=== PATIENT | male | born 1955 | race American Indian/Alaskan Native ===

== ENCOUNTER 2019-06-19 14:18 | Emergency (ER) | payer MEDICAID ==
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
[2019-06-19 15:14] LABS: Basophils % (Auto) 0.8 % (0.0-1.8); Eosinophils # (Auto) 0.1 K/mm3 (0.0-0.4); Eosinophils % (Auto) 1.2 % (0.0-4.3); Hematocrit 49.2 % (35.5-45.6); Hemoglobin 16.4 gm/dl (11.8-15.2); Lymphocytes # (Auto) 2.2 K/mm3 (1.2-5.4); Lymphocytes % (Auto) 40.6 % (13.4-35.0); Mean Corpuscular HGB Conc 33 % (32-34); Mean Corpuscular Volume 94 fl (84-94); Monocytes # (Auto) 0.8 K/mm3 (0.0-0.8); Monocytes % (Auto) 15.3 % (0.0-7.3); Platelet Count 222 K/mm3 (140-440); Red Blood Count 5.26 M/mm3 (3.65-5.03)
[2019-06-19 15:30] LABS: Calcium 9.9 mg/dL (8.4-10.2)
[2019-06-19 15:58] LABS: Bilirubin,Urine NEG (Negative); Blood,Urine NEG (Negative); Color,Urine Straw (Yellow); Protein,Urine <15 mg/dL mg/dL (Negative); Urobilinogen,Urine < 2.0 mg/dL (<2.0)
[2019-06-19 16:07] LABS: Amphetamine Screen,Urine PRESUMPTIVE NEGATIVE; Benzodiazepines Screen,Urine PRESUMPTIVE NEGATIVE; Cannabinoid Screen,Urine PRESUMPTIVE NEGATIVE; Cocaine Screen,Urine PRESUMPTIVE NEGATIVE; Methadone Screen,Urine PRESUMPTIVE NEGATIVE; Opiate Screen,Urine PRESUMPTIVE NEGATIVE
[2019-06-20 05:34] VITALS: BP 127/84
== END 2019-06-20 05:37 ==
LOC: ED 14:18
DX: F23 Brief psychotic disorder (principal); I12.9 Hypertensive chronic kidney disease with stage 1 through stage 4 chronic kidney disease, or unspecified chronic kidney disease; N18.9 Chronic kidney disease, unspecified; Z21 Asymptomatic human immunodeficiency virus [HIV] infection status; F32.9 Major depressive disorder, single episode, unspecified; E78.5 Hyperlipidemia, unspecified; Z86.2 Personal history of diseases of the blood and blood-forming organs and certain disorders involving the immune mechanism; Z87.891 Personal history of nicotine dependence
CPT/HCPCS: 36415; 80048; 80307; 80320; 81001; 85025; 99285; G0480

== ENCOUNTER 2019-09-19 13:42 | Emergency (ER) | payer MEDICAID ==
[2019-09-19 16:54] LABS: Bacteria,Urine 1+ /HPF (Negative); Bilirubin,Urine NEG (Negative); Blood,Urine NEG (Negative); Color,Urine Straw (Yellow); Urobilinogen,Urine < 2.0 mg/dL (<2.0)
--- NOTE | 2019-09-19 18:22 | Emergency Department Report ---
ED Abdominal Pain HPI - General Chief Complaint: Urogenital-Male Stated Complaint: SWOLLEN SCROTUM Time Seen by Provider: 09/19/19 18:17 Source: patient, EMS Mode of arrival: Stretcher Limitations: No Limitations - History of Present Illness Initial Comments: Patient is a 63-year-old male who presents to the emergency room with complaints of right groin pain, suprapubic pain, right testicular pain. Patient states that the pain started 2 days ago. Patient states the pain is the same. Patient denies nausea vomiting. Patient states that the pain is better with rest and worse with movement. Patient states that he had a bulge in the suprapubic and testicular region, but he was able to reduce it by lying flat and pressing on it. Patient states he lives at [facility]. Patient was transferred here via EMS for evaluation. Patient denies chest pain. Patient denies shortness of breath. Patient denies fever and chills. Patient has a past medical history of HIV, dementia, mood disorder, depression, chronic kidney disease, hyperlipidemia, hypertension and toxoplasmosis. MD Complaint: abdominal pain -: Sudden Location: suprapubic - Related Data Previous Rx's Medication Instructions Recorded Last Taken Type Ciprofloxacin HCl [Ciprofloxacin 500 mg PO Q12HR 10 Days #20 tab 09/19/19 Unknown Rx TAB] Allergies Allergy/AdvReac Type Severity Reaction Status Date / Time No Known Allergies Allergy Unverified 06/19/19 14:20 ED Review of Systems ROS: Stated complaint: SWOLLEN SCROTUM Other details as noted in HPI Constitutional: denies: chills, fever Eyes: denies: eye pain, eye discharge, vision change ENT: denies: ear pain, throat pain Respiratory: denies: cough, shortness of breath, wheezing Cardiovascular: denies: chest pain, palpitations Endocrine: no symptoms reported Gastrointestinal: abdominal pain. denies: nausea, diarrhea Genitourinary: testicular pain. denies: urgency, dysuria Musculoskeletal: denies: back pain, joint swelling, arthralgia Skin: denies: rash, lesions Neurological: denies: headache, weakness, paresthesias Psychiatric: denies: anxiety, depression Hematological/Lymphatic: denies: easy bleeding, easy bruising ED Past Medical Hx - Past Medical History Previous Medical History?: Yes Hx Hypertension: Yes Hx Renal Disease: Yes Hx Psychiatric Treatment: Yes (Dementia, Depression) Hx HIV: Yes Additional medical history: Anemia, Hyperlipidema - Social History Smoking Status: Former Smoker Substance Use Type: None - Medications Home Medications: Home Medications Medication Instructions Recorded Confirmed Last Taken Type Ciprofloxacin HCl [Ciprofloxacin 500 mg PO Q12HR 10 Days #20 tab 09/19/19 Unknown Rx TAB] ED Physical Exam - General Limitations: No Limitations General appearance: alert, in no apparent distress - Head Head exam: Present: atraumatic, normocephalic - Eye Eye exam: Present: normal appearance - ENT ENT exam: Present: mucous membranes moist - Neck Neck exam: Present: normal inspection - Respiratory Respiratory exam: Present: normal lung sounds bilaterally. Absent: respiratory distress - Cardiovascular Cardiovascular Exam: Present: regular rate, normal rhythm. Absent: systolic murmur, diastolic murmur, rubs, gallop - GI/Abdominal GI/Abdominal exam: Present: soft, tenderness (mild right lower quadrant and right suprapubic tenderness to palpation. no hernia noted. ), normal bowel sounds. Absent: distended - Rectal Rectal exam: Present: deferred - exam: Present: normal inspection, testicular tenderness. Absent: scrotal swelling, circumcision - Extremities Exam Extremities exam: Present: normal inspection - Back Exam Back exam: Present: normal inspection - Neurological Exam Neurological exam: Present: alert, oriented X3 - Psychiatric Psychiatric exam: Present: normal affect, normal mood - Skin Skin exam: Present: warm, dry, intact, normal color. Absent: rash ED Course Vital Signs 09/19/19 14:32 Temperature 98.7 F Pulse Rate 96 H Blood Pressure 159/105 - Reevaluation(s) Reevaluation #1: Admission and initially refused lab work. Patient agrees to have his labs dr middleton. 09/19/19 21:16 Reevaluation #2: I discussed all results with patient. Patient is medically clear. Patient stable for discharge. Patient be discharged back to his desk. Patient agrees to plan of care. Patient given discharge instructions. Patient voiced understanding of discharge instructions. 09/19/19 22:39 - Consultations Consultation #1: Discussed case with general surgery, Dr. Escalante. Dr. Escalante recommends outpati ent follow-up for the patient for surgical correction of his hernia. 09/19/19 22:44 ED Medical Decision Making - Lab Data Result diagrams: 09/19/19 21:11 09/19/19 21:11 - Radiology Data Radiology results: report reviewed CT ABDOMEN AND PELVIS WITHOUT CONTRAST INDICATION / CLINICAL INFORMATION: Diffuse abdominal TECHNIQUE: Axial CT images were obtained through the abdomen and pelvis without IV contrast. All CT scans at this location are performed using CT dose reduction for ALARA by means of automated exposure control. COMPARISON: None available. FINDINGS: LOWER CHEST: No significant abnormality. LIVER: No significant abnormality. GALLBLADDER: No significant abnormality. BILE DUCTS: No significant abnormality. PANCREAS: No significant abnormality. SPLEEN: No significant abnormality. ADRENALS: No significant abnormality. RIGHT KIDNEY and URETER: No significant abnormality. LEFT KIDNEY and URETER: No significant abnormality. STOMACH and SMALL BOWEL: No significant abnormality. COLON: Some nonspecific thickening is identified involving the cecum, ascending colon and hepatic flexure.. APPENDIX: No significant abnormality. Nondilated appendix. PERITONEUM: No free fluid. No free air. No fluid collection. LYMPH NODES: No significant adenopathy. AORTA and ARTERIES: No significant abnormality. IVC and VEINS: No significant abnormality. URINARY BLADDER: Abnormal thickening identified within the urinary bladder wall. REPRODUCTIVE ORGANS: No significant abnormality. ADDITIONAL FINDINGS: Large right inguinal hernia with a small amount of intermixed fluid.. SKELETAL SYSTEM: No significant abnormality. IMPRESSION: 1. Abnormal thickening identified within the urinary bladder wall. This could be seen with cystitis but close attention on follow-up is recommended. 2. Moderate-sized right internal hernia, as above 3. Question mild colitis especially involving the ascending colon. US testicular doppler comp INDICATION / CLINICAL INFORMATION: testicle pain. COMPARISON: None available. FINDINGS: Both testicles appear unremarkable. Color Doppler imaging shows normal vascular flow in each testicle. Small fluid collection adjacent to the right epididymis. The right epididymal head is slightly enlarged and inhomogeneous, with compared to the normal left epididymis. IMPRESSION: 1. Findings suggest right epididymitis. - Medical Decision Making Patient is a 63-year-old female that presents emergency room with complaints of right lower quadrant pain, suprapubic pain, testicular pain. Patient has CT done which shows a inguinal hernia. Patient had an ultrasound done which shows epididymitis. Patient treated with antibiotics. Patient to follow-up with a outpatient general surgeon for correction of his inguinal hernia. Patient's labs essentially unremarkable consistent with his chronic kidney. patient stable for discharge. Patient discharged back to his care home. - Differential Diagnosis hernia. abd pain. groin pain. testicle pain Critical care attestation.: If time is entered above; I have spent that time in minutes in the direct care of this critically ill patient, excluding procedure time. ED Disposition Clinical Impression: Acute epididymitis, Testicular pain, right Abdominal pain Qualifiers: Abdominal location: lower abdomen, unspecified Qualified Code(s): R10.30 - Lower abdominal pain, unspecified Groin pain Qualifiers: Laterality: right Qualified Code(s): R10.31 - Right lower quadrant pain Inguinal hernia Qualifiers: Obstruction and gangrene presence: without obstruction or gangrene Laterality: unilateral Recurrence: non-recurrent Qualified Code(s): K40.90 - Unilateral inguinal hernia, without obstruction or gangrene, not specified as recurrent CKD (chronic kidney disease) Qualifiers: Chronic kidney disease stage: unspecified stage Qualified Code(s): N18.9 - Chronic kidney disease, unspecified Disposition: TO HOME OR SELFCARE Is pt being admited?: No Does the pt Need Aspirin: No Condition: Stable Instructions: Epididymitis (ED), Acute Abdominal Pain (ED), Testicle Pain (ED), Inguinal Hernia (ED) Additional Instructions: Patient to follow-up with primary care in 2-3 days. Patient to follow-up with general surgery in 2-3 days. Patient to follow-up with urologist in 2-3 days. Patient to return to ER if condition worsens. Patient to take Tylenol when necessary for pain. Patient to take meds as directed. Patient increase water. Patient to rest. Prescriptions: Ciprofloxacin HCl [Ciprofloxacin TAB] 500 mg PO Q12HR 10 Days #20 tab Referrals: KWESI VALENCIA MD [Primary Care Provider] - 2-3 Days MABEL GASCA MD [Staff Physician] - 2-3 Days CATHY ESCALANTE MD [Staff Physician] - 2-3 Days Time of Disposition: 22:48
--- NOTE | 2019-09-19 19:13 | Cat Scan Report ---
CT ABDOMEN AND PELVIS WITHOUT CONTRAST INDICATION / CLINICAL INFORMATION: Diffuse abdominal TECHNIQUE: Axial CT images were obtained through the abdomen and pelvis without IV contrast. All CT scans at [facility] location are performed using CT dose reduction for ALARA by means of automated exposure control. COMPARISON: None available. FINDINGS: LOWER CHEST: No significant abnormality. LIVER: No significant abnormality. GALLBLADDER: No significant abnormality. BILE DUCTS: No significant abnormality. PANCREAS: No significant abnormality. SPLEEN: No significant abnormality. ADRENALS: No significant abnormality. RIGHT KIDNEY and URETER: No significant abnormality. LEFT KIDNEY and URETER: No significant abnormality. STOMACH and SMALL BOWEL: No significant abnormality. COLON: Some nonspecific thickening is identified involving the cecum, ascending colon and hepatic fle xure.. APPENDIX: No significant abnormality. Nondilated appendix. PERITONEUM: No free fluid. No free air. No fluid collection. LYMPH NODES: No significant adenopathy. AORTA and ARTERIES: No significant abnormality. IVC and VEINS: No significant abnormality. URINARY BLADDER: Abnormal thickening identified within the urinary bladder wall. REPRODUCTIVE ORGANS: No significant abnormality. ADDITIONAL FINDINGS: Large right inguinal hernia with a small amount of intermixed fluid.. SKELETAL SYSTEM: No significant abnormality. IMPRESSION: 1. Abnormal thickening identified within the urinary bladder wall. This could be seen with cystitis b ut close attention on follow-up is recommended. 2. Moderate-sized right internal hernia, as above 3. Question mild colitis especially involving the ascending colon. Signer Name: Freddie Eid MD Signed: 09/19/2019 7:09 PM Workstation Name: [id number]
--- NOTE | 2019-09-19 19:37 | Ultrasound Report ---
US testicular doppler comp INDICATION / CLINICAL INFORMATION: testicle pain. COMPARISON: None available. FINDINGS: Both testicles appear unremarkable. Color Doppler imaging shows normal vascular flow in each testicle . Small fluid collection adjacent to the right epididymis. The right epididymal head is slightly enlarg ed and inhomogeneous, with compared to the normal left epididymis. IMPRESSION: 1. Findings suggest right epididymitis. Signer Name: Devin Ware MD Signed: 09/19/2019 7:33 PM Workstation Name: [email or web address] Appointment Scheduler
[2019-09-19 21:22] LABS: Basophils % (Auto) 0.6 % (0.0-1.8); Eosinophils # (Auto) 0.1 K/mm3 (0.0-0.4); Eosinophils % (Auto) 0.8 % (0.0-4.3); Hematocrit 53.2 % (35.5-45.6); Hemoglobin 17.5 gm/dl (11.8-15.2); Lymphocytes # (Auto) 2.8 K/mm3 (1.2-5.4); Lymphocytes % (Auto) 33.7 % (13.4-35.0); Mean Corpuscular HGB Conc 33 % (32-34); Mean Corpuscular Volume 93 fl (84-94); Monocytes # (Auto) 0.9 K/mm3 (0.0-0.8); Monocytes % (Auto) 10.4 % (0.0-7.3); Platelet Count 233 K/mm3 (140-440); Red Blood Count 5.75 M/mm3 (3.65-5.03); Red Cell Distribution Width 14.2 % (13.2-15.2)
[2019-09-19 22:07] LABS: Albumin 4.3 g/dL (3.9-5); Calcium 10.7 mg/dL (8.4-10.2)
[2019-09-19] MEDS ORDERED: LIDOCAINE-MPF (1%) 10 MG/1 ML VIAL 5 ML INFILTRATI ONE (22:47)
[2019-09-20 03:21] VITALS: BP 137/89
== END 2019-09-20 03:21 | disposition home or self-care (01) ==
LOC: ED 13:42
DX: K40.90 Unilateral inguinal hernia, without obstruction or gangrene, not specified as recurrent (principal); N45.1 Epididymitis; N18.6 End stage renal disease
CPT/HCPCS: 36415; 74176; 80053; 81001; 85025; 93975; 96372; 99284; J0696

== ENCOUNTER 2019-11-06 13:18 | Inpatient (IN) | payer MEDICAID ==
--- NOTE | 2019-11-06 15:31 | Emergency Department Report ---
ED General Adult HPI - General Chief complaint: Altered Mental Status Stated complaint: SEIZURE Time Seen by Provider: 11/06/19 15:00 Source: EMS Mode of arrival: Stretcher Limitations: Altered Mental Status - History of Present Illness Initial comments: The patient presents to the emergency department from [facility] with a chief complaint of altered mental status. Staff states the patient possibly had a seizure due to him having a history of seizures being noncompliant with his medications. Upon the patient's initial presentation he was confused and not able to answer questions. -: unknown Severity scale (0 -10): 0 Consistency: constant Improves with: none Worsens with: none Associated Symptoms: denies other symptoms Treatments Prior to Arrival: none - Related Data Previous Rx's Medication Instructions Recorded Last Taken Type Ciprofloxacin HCl [Ciprofloxacin 500 mg PO Q12HR 10 Days #20 tab 09/19/19 U nknown Rx TAB] Allergies Allergy/AdvReac Type Severity Reaction Status Date / Time No Known Allergies Allergy Unverified 06/19/19 14:20 ED Review of Systems ROS: Stated complaint: SEIZURE Other details as noted in HPI Comment: Unobtainable due to pts medical conditions ED Past Medical Hx - Past Medical History Hx Hypertension: Yes Hx Renal Disease: Yes Hx Psychiatric Treatment: Yes (Dementia, Depression) Hx HIV: Yes Additional medical history: Anemia, Hyperlipidema - Social History Smoking Status: Unknown if ever smoked - Medications Home Medications: Home Medications Medication Instructions Recorded Confirmed Last Taken Type Ciprofloxacin HCl [Ciprofloxacin 500 mg PO Q12HR 10 Days #20 tab 09/19/19 Unknown Rx TAB] ED Physical Exam - General Limitations: Altered Mental Status General appearance: other (altered) - Head Head exam: Present: atraumatic, normocephalic - Eye Eye exam: Present: normal appearance, PERRL, EOMI - ENT ENT exam: Present: mucous membranes dry - Neck Neck exam: Present: normal inspection - Respiratory Respiratory exam: Present: normal lung sounds bilaterally. Absent: respiratory distress - Cardiovascular Cardiovascular Exam: Present: normal rhythm, tachycardia. Absent: systolic murmur, diastolic murmur, rubs, gallop - GI/Abdominal GI/Abdominal exam: Present: soft, normal bowel sounds. Absent: distended, tenderness - Rectal Rectal exam: Present: deferred - Extremities Exam Extremities exam: Present: normal inspection - Back Exam Back exam: Present: normal inspection - Neurological Exam Neurological exam: Present: altered, other (Not able to completely assess due to the patient's medical condition). Absent: motor sensory deficit - Psychiatric Psychiatric exam: Present: other (Not able to completely assess due to the patient's medical condition) - Skin Skin exam: Present: warm, dry, intact, normal color. Absent: rash ED Course Vital Signs 11/06/19 11/06/19 11/06/19 14:45 14:54 15:15 Temperature 99.9 F H Pulse Rate 119 H 143 H Respiratory 26 H 28 H 22 Rate Blood Pressure 169/116 Blood Pressure 169/116 [Left] O2 Sat by Pulse 95 96 96 Oximetry 11/06/19 11/06/19 11/06/19 15:31 16:30 17:32 Temperature Pulse Rate 109 H Respiratory 25 H 22 Rate Blood Pressure 169/116 Blood Pressure 164/115 [Left] O2 Sat by Pulse 97 95 96 Oximetry 11/06/19 18:15 Temperature Pulse Rate 123 H Respiratory 26 H Rate Blood Pressure 164/115 Blood Pressure [Left] O2 Sat by Pulse 96 Oximetry ED Medical Decision Making - Lab Data Result diagrams: 11/06/19 15:57 Lab Results 11/06/19 11/06/19 11/06/19 Range/Units 15:57 15:57 15:57 WBC 10.5 (4.5-11.0) K/mm3 RBC 5.84 H (3.65-5.03) M/mm3 Hgb 17.9 H (11.8-15.2) gm/dl Hct 53.2 H (35.5-45.6) % MCV 91 (84-94) fl MCH 31 (28-32) pg MCHC 34 (32-34) % RDW 14.7 (13.2-15.2) % Plt Count 218 (140-440) K/mm3 Lymph % (Auto) 8.0 L (13.4-35.0) % [place] % (Auto) 6.3 (0.0-7.3) % Eos % (Auto) 0.0 (0.0-4.3) % Baso % (Auto) 0.3 (0.0-1.8) % Lymph # 0.8 L (1.2-5.4) K/mm3 Sanborn # 0.7 (0.0-0.8) K/mm3 Eos # 0.0 (0.0-0.4) K/mm3 Baso # 0.0 (0.0-0.1) K/mm3 Seg Neutrophils % 85.4 H (40.0-70.0) % Seg Neutrophils # 9.0 H (1.8-7.7) K/mm3 PT 12.6 (12.2-14.9) Sec. INR 0.93 (0.87-1.13) APTT 26.9 (24.2-36.6) Sec. Ammonia (25-60) umol/L Troponin T (0.00-0.029) ng/mL NT-Pro-B Natriuret Pep (0-900) pg/mL Triglycerides (2-149) mg/dL Cholesterol (50-199) mg/dL LDL Cholesterol Direct (50-130) mg/dL HDL Cholesterol (40-59) mg/dL Cholesterol/HDL Ratio % Urine Color (Yellow) Urine Turbidity (Clear) Urine pH (5.0-7.0) Ur Specific Shirley (1.003-1.030) Urine Protein (Negative) mg/dL Urine Glucose (UA) (Negative) mg/dL Urine Ketones (Negative) mg/dL Urine Blood (Negative) Urine Nitrite (Negative) Urine Bilirubin (Negative) Urine Urobilinogen (<2.0) mg/dL Ur Leukocyte Esterase (Negative) Urine WBC (Auto) (0.0-6.0) /HPF Urine RBC (Auto) (0.0-6.0) /HPF U Epithel Cells (Auto) (0-13.0) /HPF Salicylates (2.8-20.0) mg/dL Acetaminophen (10.0-30.0) ug/mL Plasma/Serum Alcohol < 0.01 (0-0.07) % 11/06/19 11/06/19 11/06/19 Range/Units 15:57 15:57 15:57 WBC (4.5-11.0) K/mm3 RBC (3.65-5.03) M/mm3 Hgb (11.8-15.2) gm/dl Hct (35.5-45.6) % MCV (84-94) fl MCH (28-32) pg MCHC (32-34) % RDW (13.2-15.2) % Plt Count (140-440) K/mm3 Lymph % (Auto) (13.4-35.0) % San[place] % (Auto) (0.0-7.3) % Eos % (Auto) (0.0-4.3) % Baso % (Auto) (0.0-1.8) % Lymph # (1.2-5.4) K/mm3 San[place] # (0.0-0.8) K/mm3 Eos # (0.0-0.4) K/mm3 Baso # (0.0-0.1) K/mm3 Seg Neutrophils % (40.0-70.0) % Seg Neutrophils # (1.8-7.7) K/mm3 PT (12.2-14.9) Sec. INR (0.87-1.13) APTT (24.2-36.6) Sec. Ammonia 41.0 (25-60) umol/L Troponin T (0.00-0.029) ng/mL NT-Pro-B Natriuret Pep (0-900) pg/mL Triglycerides (2-149) mg/dL Cholesterol (50-199) mg/dL LDL Cholesterol Direct (50-130) mg/dL HDL Cholesterol (40-59) mg/dL Cholesterol/HDL Ratio % Urine Color (Yellow) Urine Turbidity (Clear) Urine pH (5.0-7.0) Ur Specific Shirley (1.003-1.030) Urine Protein (Negative) mg/dL Urine Glucose (UA) (Negative) mg/dL Urine Ketones (Negative) mg/dL Urine Blood (Negative) Urine Nitrite (Negative) Urine Bilirubin (Negative) Urine Urobilinogen (<2.0) mg/dL Ur Leukocyte Esterase (Negative) Urine WBC (Auto) (0.0-6.0) /HPF Urine RBC (Auto) (0.0-6.0) /HPF U Epithel Cells (Auto) (0-13.0) /HPF Salicylates < 0.3 L (2.8-20.0) mg/dL Acetaminophen < 5.0 L (10.0-30.0) ug/mL Plasma/Serum Alcohol (0-0.07) % 11/06/19 11/06/19 11/06/19 Range/Units 15:57 17:22 21:22 WBC (4.5-11.0) K/mm3 RBC (3.65-5.03) M/mm3 Hgb (11.8-15.2) gm/dl Hct (35.5-45.6) % MCV (84-94) fl MCH (28-32) pg MCHC (32-34) % RDW (13.2-15.2) % Plt Count (140-440) K/mm3 Lymph % (Auto) (13.4-35.0) % Sanborn % (Auto) (0.0-7.3) % Eos % (Auto) (0.0-4.3) % Baso % (Auto) (0.0-1.8) % Lymph # (1.2-5.4) K/mm3 Sanborn # (0.0-0.8) K/mm3 Eos # (0.0-0.4) K/mm3 Baso # (0.0-0.1) K/mm3 Seg Neutrophils % (40.0-70.0) % Seg Neutrophils # (1.8-7.7) K/mm3 PT (12.2-14.9) Sec. INR (0.87-1.13) APTT (24.2-36.6) Sec. Ammonia (25-60) umol/L Troponin T 0.056 H 0.049 H (0.00-0.029) ng/mL NT-Pro-B Natriuret Pep 116.3 (0-900) pg/mL Triglycerides 291 H (2-149) mg/dL Cholesterol 234 H (50-199) mg/dL LDL Cholesterol Direct 126 (50-130) mg/dL HDL Cholesterol 42 (40-59) mg/dL Cholesterol/HDL Ratio 5.57 % Urine Color (Yellow) Urine Turbidity (Clear) Urine pH (5.0-7.0) Ur Specific Shirley (1.003-1.030) Urine Protein (Negative) mg/dL Urine Glucose (UA) (Negative) mg/dL Urine Ketones (Negative) mg/dL Urine Blood (Negative) Urine Nitrite (Negative) Urine Bilirubin (Negative) Urine Urobilinogen (<2.0) mg/dL Ur Leukocyte Esterase (Negative) Urine WBC (Auto) (0.0-6.0) /HPF Urine RBC (Auto) (0.0-6.0) /HPF U Epithel Cells (Auto) (0-13.0) /HPF Salicylates (2.8-20.0) mg/dL Acetaminophen (10.0-30.0) ug/mL Plasma/Serum Alcohol (0-0.07) % 11/06/19 Range/Units Unknown WBC (4.5-11.0) K/mm3 RBC (3.65-5.03) M/mm3 Hgb (11.8-15.2) gm/dl Hct (35.5-45.6) % MCV (84-94) fl MCH (28-32) pg MCHC (32-34) % RDW (13.2-15.2) % Plt Count (140-440) K/mm3 Lymph % (Auto) (13.4-35.0) % Sanborn % (Auto) (0.0-7.3) % Eos % (Auto) (0.0-4.3) % Baso % (Auto) (0.0-1.8) % Lymph # (1.2-5.4) K/mm3 Sanborn # (0.0-0.8) K/mm3 Eos # (0.0-0.4) K/mm3 Baso # (0.0-0.1) K/mm3 Seg Neutrophils % (40.0-70.0) % Seg Neutrophils # (1.8-7.7) K/mm3 PT (12.2-14.9) Sec. INR (0.87-1.13) APTT (24.2-36.6) Sec. Ammonia (25-60) umol/L Troponin T (0.00-0.029) ng/mL NT-Pro-B Natriuret Pep (0-900) pg/mL Triglycerides (2-149) mg/dL Cholesterol (50-199) mg/dL LDL Cholesterol Direct (50-130) mg/dL HDL Cholesterol (40-59) mg/dL Cholesterol/HDL Ratio % Urine Color Straw (Yellow) Urine Turbidity Clear (Clear) Urine pH 7.0 (5.0-7.0) Ur Specific Shirley 1.010 (1.003-1.030) Urine Protein 100 mg/dl (Negative) mg/dL Urine Glucose (UA) 50 (Negative) mg/dL Urine Ketones Neg (Negative) mg/dL Urine Blood Lg (Negative) Urine Nitrite Neg (Negative) Urine Bilirubin Neg (Negative) Urine Urobilinogen < 2.0 (<2.0) mg/dL Ur Leukocyte Esterase Neg (Negative) Urine WBC (Auto) 1.0 (0.0-6.0) /HPF Urine RBC (Auto) 166.0 (0.0-6.0) /HPF U Epithel Cells (Auto) < 1.0 (0-13.0) /HPF Salicylates (2.8-20.0) mg/dL Acetaminophen (10.0-30.0) ug/mL Plasma/Serum Alcohol (0-0.07) % - EKG Data -: EKG Interpreted by Me EKG shows normal: sinus rhythm Rate: tachycardia - Radiology Data Radiology results: report reviewed - Medical Decision Making The patient received multiple doses of medications in order to get the CT of the head completed Critical care attestation.: If time is entered above; I have spent that time in minutes in the direct care of this critically ill patient, excluding procedure time. ED Disposition Clinical Impression: Altered mental status Disposition: DC-09 OP ADMIT IP TO THIS HOSP Is pt being admited?: Yes Does the pt Need Aspirin: Yes Condition: Fair Referrals: TONEY LYON MD [Primary Care Provider] - 3-5 Days - Assessment Assessment Interval: Baseline - Level of Consciousness 1a. Level of Consciousness: coma/unresponsive - LOC Questions 1b. LOC Questions: answers no questions correctly - LOC Command 1c. LOC Commands: performs no tasks correctly - Best Gaze 2. Best Gaze: normal - Visual 3. Visual: no visual loss - Facial Palsy 4. Facial Palsy: normal symmetrical movement - Motor Arm 5a. Motor Arm Left: no drift 5b. Motor Arm Right: no drift - Motor Leg 6a. Motor Leg Left: no drift 6b. Motor Leg Right: no drift - Limb Ataxia 7. Limb Ataxia: absent - Sensory 8. Sensory: normal - Best Language 9. Best Language: no aphasia
--- NOTE | 2019-11-06 16:12 | XRay Report ---
CHEST 1 VIEW INDICATION: Altered Mental Status. COMPARISON: No relevant comparative imaging. FINDINGS: Support devices: None. Heart: Within normal limits. Pulmonary vasculature: Normal given degree of inspiration. Lungs/Pleura: No acute air space or interstitial disease. The chin obscures the upper midline chest. Additional findings: None. IMPRESSION: 1. No acute findings. Signer Name: Ravindra Fagan MD Signed: 11/06/2019 4:08 PM Workstation Name: [id number]
[2019-11-06 16:43] LABS: Basophils % (Auto) 0.3 % (0.0-1.8); Hematocrit 53.2 % (35.5-45.6); Hemoglobin 17.9 gm/dl (11.8-15.2); Lymphocytes # (Auto) 0.8 K/mm3 (1.2-5.4); Mean Corpuscular HGB Conc 34 % (32-34); Mean Corpuscular Volume 91 fl (84-94); Monocytes # (Auto) 0.7 K/mm3 (0.0-0.8); Monocytes % (Auto) 6.3 % (0.0-7.3); Platelet Count 218 K/mm3 (140-440); Red Blood Count 5.84 M/mm3 (3.65-5.03); Red Cell Distribution Width 14.7 % (13.2-15.2)
[2019-11-06 16:56] LABS: INR 0.93 (0.87-1.13)
[2019-11-06 16:58] LABS: Partial Thromboplastin Time 26.9 Sec. (24.2-36.6)
[2019-11-06] MEDS ORDERED: LORazepam 2 MG/ML VIAL ONE (17:28)
[2019-11-06] MEDS ORDERED: LORazepam 2 MG/ML VIAL IV ONE ×2 (17:29→17:53)
[2019-11-06 17:39] LABS: Bilirubin,Urine NEG (Negative); Blood,Urine LG (Negative); Color,Urine Straw (Yellow); Urobilinogen,Urine < 2.0 mg/dL (<2.0)
[2019-11-06 17:40] LABS: Chol/HDL Ratio 5.57 %
[2019-11-06] MEDS ORDERED: ZIPRASIDONE MESYLATE 20 MG VIAL IM ONE ×3 (18:00→22:20)
[2019-11-06] MEDS ORDERED: SODIUM CHLORIDE 0.9% 1000 ML 1,000 ML IV ONE (20:14)
--- NOTE | 2019-11-06 21:51 | Cat Scan Report ---
CT head/brain wo con INDICATION / CLINICAL INFORMATION: 64 years Male; ams. TECHNIQUE: Routine CT head without contrast. All CT scans at this location are performed using CT dos e reduction for ALARA by means of automated exposure control. COMPARISON: None. FINDINGS: BRAIN / INTRACRANIAL CONTENTS: The motion degrades the image quality, particularly the superior image s. However, there is extensive cerebral white matter disease most consistent with microvascular angio or[place] at. 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 There i s mild cerebral atrophy with associated mild prominence of the ventricular system. There are foci of dural calcification along the right lateral temporal lobe region. There is also foc us of disc desiccation along the posterior right basal ganglia. However, there is no definitive CT ev idence of acute intracranial hemorrhage involving the visualized brain. ORBITS: No significant abnormality of visualized orbits. SINUSES / MASTOIDS: There is scattered opacification with retention cysts involving sphenoid and righ t maxillary sinuses at. CRANIOCERVICAL JUNCTION: No significant abnormality. ADDITIONAL FINDINGS: None. IMPRESSION: 1. The study is limited by motion. However, there is extensive microvascular angiopathy as detailed a nasim without clear CT evidence of acute intracranial hemorrhage. Signer Name: Blu Piedra MD Signed: 11/06/2019 9:46 PM Workstation Name: [id number]
[2019-11-06] MEDS ORDERED: levETIRAcetam 1000 MG/NS 0.75% 1,000 MG/100 ML BAG IV ONE (23:02)
[2019-11-06] MEDS ORDERED: ASPIRIN 81 MG TAB CHEW PO ONE (23:17)
[2019-11-06] MEDS ORDERED: SODIUM CHLORIDE 0.45% 1000 ML 1,000 ML IV SCH (23:45)
[2019-11-06] MEDS ORDERED: oxyCODONE /ACETAMINOPHEN 5-325MG TAB PO PRN (23:51)
[2019-11-06] MEDS ORDERED: NALOXONE 0.4 MG/1 ML INJ IV PRN (23:51)
[2019-11-06] MEDS ORDERED: ALBUTEROL 2.5 MG/3 ML NEBU IH PRN (23:51)
[2019-11-06] MEDS ORDERED: MORPHINE 2 MG/1 ML INJ IV PRN (23:51)
[2019-11-06] MEDS ORDERED: ACETAMINOPHEN 325 MG TAB PO PRN (23:51)
[2019-11-06] MEDS ORDERED: ONDANSETRON 4 MG/2 ML INJ IV PRN (23:51)
--- NOTE | 2019-11-06 23:51 | History and Physical Report ---
History of Present Illness Date of examination: 11/06/19 Chief complaint: Pt sent to the ED for ALtered Mental Status History of present illness: 64M with PMH of HTN, Dementia, Depression, Seizures, Mood Disorder, HIV, Toxoplasmosis, who was sent to the emergency department from [facility] with a chief complaint of altered mental status. Staff stated that the patient possibly had a seizure due to him having a history of seizures and being noncompliant with his medications. Upon the patient's initial presentation he was confused and not able to answer questions. At one point, pt was combative and agitated and needed to be given Geodon and other meds and pt was placed in restraints. In my conversations with the pt, he tells me " I want to learn something". I want to be a teacher". Other questions went unanswered. Pt could not be reoriented. Further HPI cannot be reliably obtained due to pt's psychosis. Head CT reveals non specific angiopathy. No acute ischemic areas. UDS is negative. Past History Past Medical History: HIV/AIDS, hypertension, seizures, other (depression, sei) Social history: full code Family history: hypertension Medications and Allergies Allergies Allergy/AdvReac Type Severity Reaction Status Date / Time No Known Allergies Allergy Unverified 06/19/19 14:20 Home Medications Medication Instructions Recorded Confirmed Last Taken Type Ciprofloxacin HCl [Ciprofloxacin 500 mg PO Q12HR 10 Days #20 tab 09/19/19 Unknown Rx TAB] Review of Systems ROS unobtainable: due to mental status Exam - Constitutional Vitals: Temp Pulse Resp BP Pulse Ox 99.9 F H 123 H 26 H 164/115 96 11/06/19 14:54 11/06/19 18:15 11/06/19 18:15 11/06/19 18:15 11/06/19 18:15 General appearance: Present: disheveled - EENT Eyes: Present: PERRL ENT: hearing intact, clear oral mucosa - Psychiatric Psychiatric: no appropriate mood/affect, no intact judgment & insight, no memory intact, no cooperative, agitated - Neurologic Neurologic: CNII-XII intact Results - Labs CBC & Chem 7: 11/06/19 15:57 11/06/19 23:30 Labs: Laboratory Last Values WBC 10.5 K/mm3 (4.5-11.0) 11/06/19 15:57 RBC 5.84 M/mm3 (3.65-5.03) H 11/06/19 15:57 Hgb 17.9 gm/dl (11.8-15.2) H 11/06/19 15:57 Hct 53.2 % (35.5-45.6) H 11/06/19 15:57 MCV 91 fl (84-94) 11/06/19 15:57 MCH 31 pg (28-32) 11/06/19 15:57 MCHC 34 % (32-34) 11/06/19 15:57 RDW 14.7 % (13.2-15.2) 11/06/19 15:57 Plt Count 218 K/mm3 (140-440) 11/06/19 15:57 Lymph % (Auto) 8.0 % (13.4-35.0) L 11/06/19 15:57 [place] % (Auto) 6.3 % (0.0-7.3) 11/06/19 15:57 Eos % (Auto) 0.0 % (0.0-4.3) 11/06/19 15:57 Baso % (Auto) 0.3 % (0.0-1.8) 11/06/19 15:57 Lymph # 0.8 K/mm3 (1.2-5.4) L 11/06/19 15:57 [place]val # 0.7 K/mm3 (0.0-0.8) 11/06/19 15:57 Eos # 0.0 K/mm3 (0.0-0.4) 11/06/19 15:57 Baso # 0.0 K/mm3 (0.0-0.1) 11/06/19 15:57 Seg Neutrophils % 85.4 % (40.0-70.0) H 11/06/19 15:57 Seg Neutrophils # 9.0 K/mm3 (1.8-7.7) H 11/06/19 15:57 PT 12.6 Sec. (12.2-14.9) 11/06/19 15:57 INR 0.93 (0.87-1.13) 11/06/19 15:57 APTT 26.9 Sec. (24.2-36.6) 11/06/19 15:57 Ammonia 41.0 umol/L (25-60) 11/06/19 15:57 Troponin T 0.049 ng/mL (0.00-0.029) H 11/06/19 21:22 NT-Pro-B Natriuret Pep 116.3 pg/mL (0-900) 11/06/19 17:22 Triglycerides 291 mg/dL (2-149) H 11/06/19 15:57 Cholesterol 234 mg/dL (50-199) H 11/06/19 15:57 LDL Cholesterol Direct 126 mg/dL (50-130) 11/06/19 15:57 HDL Cholesterol 42 mg/dL (40-59) 11/06/19 15:57 Cholesterol/HDL Ratio 5.57 % 11/06/19 15:57 Urine Color Straw (Yellow) 11/06/19 Unknown Urine Turbidity Clear (Clear) 11/06/19 Unknown Urine pH 7.0 (5.0-7.0) 11/06/19 Unknown Ur Specific Mcgreg[place] 1.010 (1.003-1.030) 11/06/19 Unknown Urine Protein 100 mg/dl mg/dL (Negative) 11/06/19 Unknown Urine Glucose (UA) 50 mg/dL (Negative) 11/06/19 Unknown Urine Ketones Neg mg/dL (Negative) 11/06/19 Unknown Urine Blood Lg (Negative) 11/06/19 Unknown Urine Nitrite Neg (Negative) 11/06/19 Unknown Urine Bilirubin Neg (Negative) 11/06/19 Unknown Urine Urobilinogen < 2.0 mg/dL (<2.0) 11/06/19 Unknown Ur Leukocyte Esterase Neg (Negative) 11/06/19 Unknown Urine WBC (Auto) 1.0 /HPF (0.0-6.0) 11/06/19 Unknown Urine RBC (Auto) 166.0 /HPF (0.0-6.0) 11/06/19 Unknown U Epithel Cells (Auto) < 1.0 /HPF (0-13.0) 11/06/19 Unknown Salicylates < 0.3 mg/dL (2.8-20.0) L 11/06/19 15:57 Acetaminophen < 5.0 ug/mL (10.0-30.0) L 11/06/19 15:57 Plasma/Serum Alcohol < 0.01 % (0-0.07) 11/06/19 15:57 Assessment and Plan Assessment and plan: 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 ED to load pt as discussed - Seizure precautions. - Antipsychotics PRN - Psychiatric consult in the am Hypertensive Urgency - hx of essential HTN - PRN IV antihypertensives - continue meds Toponin Elevation - unclear if pt is having CP - cycle troponins - continue telemetry Dyslipidemia - moderate - continue meds HIV/AIDs - unclear CD4 count - Hx of Toxoplasmosis is noted - No ring enhancing lesions noted on head CT - I dont suspect any AIDS defining illness at this time. Doubt Crytpo. - continue HAART. ID eval as indicated Polycythemia - MIld - meds related - check Iron if level more than 18 full code/lovenox Advance Directives: Yes VTE prophylaxis?: Chemical
[2019-11-06] MEDS ORDERED: HALOPERIDOL DECANOATE 100 MG/1 ML INJ IM PRN (23:54)
[2019-11-07] MEDS ORDERED: WATER FOR INJ Sterile (PF) 10 ML IV ONE (00:19)
[2019-11-07 00:29] LABS: Alanine Aminotransferase 49 units/L (7-56); Albumin 4.8 g/dL (3.9-5); BUN/Creatinine Ratio 12; Blood Urea Nitrogen 14 mg/dL (9-20); Calcium 10.7 mg/dL (8.4-10.2); Hemolysis Index 11
[2019-11-07 08:06] LABS: Basophils % (Auto) 0.3 % (0.0-1.8); Eosinophils % (Auto) 0.4 % (0.0-4.3); Hematocrit 51.3 % (35.5-45.6); Hemoglobin 17.2 gm/dl (11.8-15.2); Lymphocytes # (Auto) 2.3 K/mm3 (1.2-5.4); Lymphocytes % (Auto) 23.6 % (13.4-35.0); Mean Corpuscular HGB Conc 33 % (32-34); Mean Corpuscular Volume 91 fl (84-94); Monocytes # (Auto) 1.2 K/mm3 (0.0-0.8); Monocytes % (Auto) 11.9 % (0.0-7.3); Platelet Count 208 K/mm3 (140-440); Red Blood Count 5.62 M/mm3 (3.65-5.03); Red Cell Distribution Width 14.9 % (13.2-15.2)
[2019-11-07 08:36] LABS: Alanine Aminotransferase 43 units/L (7-56); BUN/Creatinine Ratio 12; Blood Urea Nitrogen 17 mg/dL (9-20); Calcium 10.2 mg/dL (8.4-10.2); Hemolysis Index 10
[2019-11-07] MEDS: DOCUSATE SODIUM 100 MG CAP PO SCH ×2 (10:09→21:30)
[2019-11-07] MEDS: ENOXAPARIN 40 MG/0.4 ML INJ SUB-Q SCH (10:22)
--- NOTE | 2019-11-07 20:24 | Progress Note ---
Assessment and Plan - Patient Problems (1) Seizure disorder Current Visit: Yes Status: Acute Plan to address problem: Patient with seizure disorder. Most likely postictal state. Has resolved now. Will observe for any further seizures. Continue present medical management for now routine Keppra 1000 twice daily. Treat as needed Ativan no further seizure at this time. (2) Altered mental status Current Visit: Yes Status: Acute Plan to address problem: Secondary to seizure disorder postictal state resolving. Patient may have some underlying AIDS dementia as well. Versus personality disorder undiagnosed. (3) AIDS (acquired immune deficiency syndrome) Current Visit: Yes Status: Acute Plan to address problem: No direct evidence of AIDS defining illness continue HARRT therapy. (4) Hypertensive emergency Current Visit: Yes Status: Acute Plan to address problem: Blood pressure responding well to labetalol. Fair control at this particular time. (5) Hyperlipidemia Current Visit: Yes Status: Acute Plan to address problem: Continue statin for lipids stable now. Can reevaluate outpatient. History Interval history: Patient 64-year-old male with a history of hypertension, dementia depression seizure disorder, hypertension history of toxoplasmosis presents with altered mental status thought to be secondary to seizure disorder. Staff at [facility] thought patient had seizure via witness. At present patient is clear at his baseline. Patient states he needs education so he could do better for himself. Patient is alert and oriented. To person and place. Appears to have some delusions of grandeur. No pain states he feels just fine. Hospitalist Physical - Constitutional Vitals: Temp Pulse Resp BP Pulse Ox 97.9 F 78 20 144/103 92 11/07/19 11:54 11/07/19 11:54 11/07/19 11:54 11/07/19 11:54 11/07/19 11:54 General appearance: Present: no acute distress, disheveled - EENT Eyes: Present: PERRL, EOM intact ENT: hearing intact, clear oral mucosa, dentition normal - Neck Neck: Present: supple, normal ROM - Respiratory Respiratory: bilateral: CTA - Cardiovascular Rhythm: regular - Extremities Extremities: no ischemia, pulses intact, pulses symmetrical, No edema, normal temperature, normal color Peripheral Pulses: within normal limits - Abdominal General gastrointestinal: soft, non-tender, normal bowel sounds, no hepatomegaly, no splenomegaly, no mass, no hernia - Integumentary Integumentary: Present: clear, warm, dry - Psychiatric Psychiatric: appropriate mood/affect, memory intact, other (Patient appears to have poor insight and poor judgment.) - Neurologic Neurologic: CNII-XII intact, moves all extremities Results - Labs CBC & Chem 7: 11/07/19 07:31 11/07/19 07:31 Labs: Laboratory Last Values WBC 9.7 K/mm3 (4.5-11.0) 11/07/19 07:31 RBC 5.62 M/mm3 (3.65-5.03) H 11/07/19 07:31 Hgb 17.2 gm/dl (11.8-15.2) H 11/07/19 07:31 Hct 51.3 % (35.5-45.6) H 11/07/19 07:31 MCV 91 fl (84-94) 11/07/19 07:31 MCH 31 pg (28-32) 11/07/19 07: MCHC 33 % (32-34) 11/07/19 07: RDW 14.9 % (13.2-15.2) 11/07/19 07:31 Plt Count 208 K/mm3 (140-440) 11/07/19 07:31 Lymph % (Auto) 23.6 % (13.4-35.0) 11/07/19 07:31 [place] % (Auto) 11.9 % (0.0-7.3) H 11/07/19 07:31 Eos % (Auto) 0.4 % (0.0-4.3) 11/07/19 07: Baso % (Auto) 0.3 % (0.0-1.8) 11/07/19 07:31 Lymph # 2.3 K/mm3 (1.2-5.4) 11/07/19 07:31 [place] # 1.2 K/mm3 (0.0-0.8) H 11/07/19 07:31 Eos # 0.0 K/mm3 (0.0-0.4) 11/07/19 07:31 Baso # 0.0 K/mm3 (0.0-0.1) 11/07/19 07: Seg Neutrophils % 63.8 % (40.0-70.0) 03/05/20 07:31 Seg Neutrophils # 6.2 K/mm3 (1.8-7.7) 11/07/19 07:31 PT 12.6 Sec. (12.2-14.9) 11/06/19 15:57 INR 0.93 (0.87-1.13) 11/06/19 15:57 APTT 26.9 Sec. (24.2-36.6) 11/06/19 15:57 Sodium 137 mmol/L (137-145) 11/07/19 07:31 Potassium 3.8 mmol/L (3.6-5.0) 11/07/19 07:31 Chloride 99.1 mmol/L (98-107) 11/07/19 07:31 Carbon Dioxide 21 mmol/L (22-30) L 11/07/19 07:31 Anion Gap 21 mmol/L 11/07/19 07:31 BUN 17 mg/dL (9-20) 11/07/19 07:31 Creatinine 1.4 mg/dL (0.8-1.5) 11/07/19 07:31 Estimated GFR > 60 ml/min 11/07/19 07:31 BUN/Creatinine Ratio 12 % 11/07/19 07:31 Glucose 105 mg/dL (75-100) H 11/07/19 07:31 POC Glucose 95 (70-105) 11/07/19 11:31 Lactic Acid 1.70 mmol/L (0.7-2.0) 11/07/19 01:25 Calcium 10.2 mg/dL (8.4-10.2) 11/07/19 07:31 Total Bilirubin 0.50 mg/dL (0.1-1.2) 11/07/19 07:31 AST 52 units/L (5-40) H 11/07/19 07:31 ALT 43 units/L (7-56) 11/07/19 07:31 Alkaline Phosphatase 59 units/L (35-129) 11/07/19 07:31 Ammonia 41.0 umol/L (25-60) 11/06/19 15:57 Troponin T 0.039 ng/mL (0.00-0.029) H D 11/07/19 07:31 NT-Pro-B Natriuret Pep 116.3 pg/mL (0-900) 11/06/19 17:22 Total Protein 8.3 g/dL (6.3-8.2) H 11/07/19 07:31 Albumin 4.0 g/dL (3.9-5) 11/07/19 07:31 Albumin/Globulin Ratio 0.9 % 11/07/19 07:31 Triglycerides 291 mg/dL (2-149) H 11/06/19 15:57 Cholesterol 234 mg/dL (50-199) H 11/06/19 15:57 LDL Cholesterol Direct 126 mg/dL (50-130) 11/06/19 15:57 HDL Cholesterol 42 mg/dL (40-59) 11/06/19 15:57 Cholesterol/HDL Ratio 5.57 % 11/06/19 15:57 Urine Color Straw (Yellow) 11/06/19 Unknown Urine Turbidity Clear (Clear) 11/06/19 Unknown Urine pH 7.0 (5.0-7.0) 11/06/19 Unknown Ur Specific [place] 1.010 (1.003-1.030) 11/06/19 Unknown Urine Protein 100 mg/dl mg/dL (Negative) 11/06/19 Unknown Urine Glucose (UA) 50 mg/dL (Negative) 11/06/19 Unknown Urine Ketones Neg mg/dL (Negative) 11/06/19 Unknown Urine Blood Lg (Negative) 11/06/19 Unknown Urine Nitrite Neg (Negative) 11/06/19 Unknown Urine Bilirubin Neg (Negative) 11/06/19 Unknown Urine Urobilinogen < 2.0 mg/dL (<2.0) 11/06/19 Unknown Ur Leukocyte Esterase Neg (Negative) 11/06/19 Unknown Urine WBC (Auto) 1.0 /HPF (0.0-6.0) 11/06/19 Unknown Urine RBC (Auto) 166.0 /HPF (0.0-6.0) 11/06/19 Unknown U Epithel Cells (Auto) < 1.0 /HPF (0-13.0) 11/06/19 Unknown Salicylates < 0.3 mg/dL (2.8-20.0) L 11/06/19 15:57 Acetaminophen < 5.0 ug/mL (10.0-30.0) L 11/06/19 15:57 Valproic Acid < 2.8 ug/mL (50-100) L 11/07/19 07:31 Plasma/Serum Alcohol < 0.01 % (0-0.07) 11/06/19 15:57 - Imaging and Cardiology CT Scan - head: report reviewed, image reviewed Active Medications - Current Medications Current Medications: Generic Name Dose Route Start Last Admin Trade Name Tamq PRN Reason Stop Dose Admin Acetaminophen 650 mg 11/06/19 23:51 Tylenol PO Q4H PRN Pain MILD(1-3)/Fever >100.5/[place] Albuterol 2.5 mg 11/06/19 23:51 Proventil IH Q4HRT PRN Shortness Of Breath Docusate Sodium 100 mg 11/07/19 10:00 11/07/19 10:09 Colace PO Not Given BID PATTIE Enoxaparin Sodium 40 mg 11/07/19 10:00 11/07/19 10:22 Enoxaparin SUB-Q 40 mg QDAY PATTIE Administration Haloperidol Decanoate 5 mg 11/06/19 23:54 Haldol Decanoate IM ONCE PRN Agitation Sodium Chloride 1,000 mls @ 100 mls/hr 11/06/19 23:45 Nacl 0.45% 1000 Ml IV 11/08/19 09:44 DIRECT [facility] Labetalol HCl 20 mg 11/06/19 23:55 Labetalol IV Q6HR PRN SBP > 170, DBP > 100 Morphine Sulfate 2 mg 11/06/19 23:51 Morphine IV Q4H PRN Pain, Moderate (4-6) Naloxone HCl 0.1 mg 11/06/19 23:51 Naloxone IV Q2MIN PRN Res Rate </= 8 or 02 SAT < 92% Ondansetron HCl 4 mg 11/06/19 23:51 Zofran IV Q8H PRN Nausea And Vomiting Oxycodone/Acetaminophen 1 tab 11/06/19 23:51 Percocet 5/325 PO Q6H PRN Pain, Moderate (4-6) Sodium Chloride 10 ml 11/07/19 10:00 11/07/19 19:02 Sodium Chloride Flush Syringe 10 Ml IV Not Given BID PATTIE Sodium Chloride 10 ml 11/06/19 23:51 Sodium Chloride Flush Syringe 10 Ml IV PRN PRN LINE FLUSH
[2019-11-08] MEDS: ENOXAPARIN 40 MG/0.4 ML INJ SUB-Q SCH (09:28)
[2019-11-08] MEDS: DOCUSATE SODIUM 100 MG CAP PO SCH (09:28)
--- NOTE | 2019-11-08 13:01 | Discharge Summary ---
Providers - Providers Date of Admission: 11/06/19 23:51 Date of discharge: 11/08/19 Attending physician: GRIFFIN SIM [facility] Reason for admission: AMS Condition: Fair Hospital course: 64M with PMH of HTN, Dementia, Depression, Seizures, Mood Disorder, HIV, Toxoplasmosis, who was sent to the emergency department from [facility] with a chief complaint of altered mental status. Staff stated that the patient possibly had a seizure due to him having a history of seizures and being noncompliant with his medications. Upon the patient's initial presentation he was confused and not able to answer questions. The patient was admitted with diagnosis of acute encephalopathy secondary to post ictal state from seizures. Patient returned back to his baseline mental status with no further issues. Patient was evaluated by his primary care physician Dr. Vlad Gerardo who stated patient could discharge back to the nursing facility with Keppra 1000 mg twice daily. Dedicated discharge time 35 minutes. Disposition: DC/-03 SNF [facility] Time spent for discharge: 35 - Discharge Diagnoses (1) AIDS (acquired immune deficiency syndrome) Status: Acute (2) Altered mental status Status: Acute (3) Hyperlipidemia Status: Acute (4) Hypertensive emergency Status: Acute (5) Seizure disorder Status: Acute Core Measure Documentation - Palliative Care Palliative Care/ Comfort Measures: Not Applicable - Core Measures Any of the following diagnoses?: none Exam - Constitutional Vitals: Temp Pulse Resp BP Pulse Ox 97.7 F 66 18 126/91 97 11/08/19 04:30 11/08/19 04:30 11/08/19 04:30 11/08/19 04:30 11/08/19 04:30 General appearance: Present: no acute distress, well-nourished - EENT Eyes: Present: PERRL ENT: hearing intact, clear oral mucosa - Neck Neck: Present: supple, normal ROM - Respiratory Respiratory effort: normal Respiratory: bilateral: CTA - Cardiovascular Heart Sounds: Present: S1 & S2. Absent: rub, click - Extremities Extremities: pulses symmetrical, No edema Peripheral Pulses: within normal limits - Abdominal General gastrointestinal: Present: soft, non-tender, non-distended, normal bowel sounds Male genitourinary: Present: normal - Integumentary Integumentary: Present: clear, warm, dry - Musculoskeletal Musculoskeletal: gait normal, strength equal bilaterally - Psychiatric Psychiatric: appropriate mood/affect, intact judgment & insight - Neurologic Neurologic: CNII-XII intact, moves all extremities Plan Activity: advance as tolerated Weight Bearing Status: Full Weight Bearing Diet: regular Follow up with: TONEY LYON MD [Primary Care Provider] - 3-5 Days Prescriptions: levETIRAcetam [Keppra TAB] 1,000 mg PO BID #60 tab
[2019-11-08 13:46] VITALS: BP 127/98
== END 2019-11-08 18:40 | DRG 100 ==
LOC: ED 13:18 → 3A 23:51
PROVIDERS: ADMIT Hospitalist; ATTEND Hospitalist
DX: G40.909 Epilepsy, unspecified, not intractable, without status epilepticus (principal); B20 Human immunodeficiency virus [HIV] disease; G93.40 Encephalopathy, unspecified; I16.1 Hypertensive emergency; R41.82 Altered mental status, unspecified; I10 Essential (primary) hypertension; F03.90 Unspecified dementia, unspecified severity, without behavioral disturbance, psychotic disturbance, mood disturbance, and anxiety; F32.9 Major depressive disorder, single episode, unspecified; D64.9 Anemia, unspecified; E78.5 Hyperlipidemia, unspecified; F29 Unspecified psychosis not due to a substance or known physiological condition; Z82.49 Family history of ischemic heart disease and other diseases of the circulatory system; I16.0 Hypertensive urgency; R79.89 Other specified abnormal findings of blood chemistry; Z91.14 Patient's other noncompliance with medication regimen
CPT/HCPCS: 36415; 70450; 71045; 80053; 80061; 80164; 80320; 81001; 82140; 82962; 83880; 84484; 85025; 85610; 85730; 87040; 87086; 93005; 93010; 96361; 96372; 96374; 96375; G0378; G0480; J1650; J1953; J2060; J3486; J7030

== ENCOUNTER 2020-08-13 23:45 | Inpatient (IN) | payer MEDICAID ==
[2020-08-14 01:54] LABS: BUN/Creatinine Ratio 12; Blood Urea Nitrogen 13 mg/dL (9-20); Calcium 10.1 mg/dL (8.4-10.2); Hemolysis Index 6
[2020-08-14 02:01] LABS: Hematocrit 43.1 % (35.5-45.6); Hemoglobin 14.5 gm/dl (11.8-15.2); Mean Corpuscular HGB Conc 34 % (32-34); Mean Corpuscular Volume 90 fl (84-94); Platelet Count 178 K/mm3 (140-440); Red Cell Distribution Width 13.9 % (13.2-15.2)
--- NOTE | 2020-08-14 03:44 | Emergency Department Report ---
ED Abdominal Pain HPI - General Chief Complaint: Abdominal Pain Stated Complaint: ALTERED MENTAL STATUS PUI?: No Time Seen by Provider: 08/14/20 03:39 Source: patient Mode of arrival: Stretcher Limitations: No Limitations - History of Present Illness Initial Comments: Patient is a 64-year-old male that presents emergency room for altered mental status and right inguinal pain and right lower quadrant pain.. Patient brought in a local jail, [facility] or rehab. Patient came with his chart. Patient's transfer form from the jail states that the patient is altered and is having severe pain. Patient at this time is alert and oriented x1. Patient is disoriented to situation and time and place. Patient is oriented to person only. Patient states the pain in his abdomen is severe. MD Complaint: abdominal pain -: Sudden Location: RLQ Radiation: none Migration to: no migration Severity: severe Consistency: constant Improves With: rest Worsens With: movement Associated Symptoms: denies other symptoms - Related Data Previous Rx's Medication Instructions Recorded Last Taken Type ALBUTEROL NEB's [Proventil 0.083% 2.5 mg IH Q4HRT PRN nebu 11/08/19 Unknown Rx NEBS] Acetaminophen [Acetaminophen TAB] 650 mg PO Q4H PRN tablet 11/08/19 Unknown Rx Docusate Sodium [Colace CAP] 100 mg PO BID capsule 11/08/19 Unknown Rx levETIRAcetam [Keppra TAB] 1,000 mg PO BID #60 tab 11/08/19 Unknown Rx Abacavir [Ziagen TAB] 600 mg PO DAILY tablet 05/07/20 Unknown Rx Apixaban [Eliquis] 5 mg PO Q12HR #60 tablet 05/07/20 Unknown Rx Ascorbic Acid [Vitamin C] 500 mg PO BID tablet 05/07/20 Unknown Rx Aspirin [Aspirin BABY CHEW TAB] 81 mg PO QDAY tab.chew 05/07/20 Unknown Rx Darunavir [Prezista] 800 mg PO QDAY tablet 05/07/[address] [Depakote Dr] 500 mg PO BID tablet 05/07/20 Unknown Rx Dolutegravir [Tivicay] 50 mg PO QDAY tablet 05/07/20 Unknown Rx Emtricitabine [Emtriva] 200 mg PO QDAY capsule 05/07/20 Unknown Rx Escitalopram [Lexapro] 10 mg PO QDAY tablet 05/07/20 Unknown Rx Metoprolol [Lopressor TAB] 50 mg PO TID tablet 05/07/20 Unknown Rx Pantoprazole [Protonix TAB] 40 mg PO DAILY tablet 05/07/20 Unknown Rx Phenytoin [Dilantin] 100 mg PO Q8HR #90 capsule 05/07/20 Unknown Rx Ritonavir 100 mg PO QDAY tab 05/07/20 Unknown Rx amLODIPine 10 mg PO QDAY tablet 05/07/20 Unknown Rx dexAMETHasone [Decadron] 6 mg PO Q24HR tablet 05/07/20 Unknown Rx donepeziL [Aricept] 10 mg PO QHS tablet 05/07/20 Unknown Rx Allergies Allergy/AdvReac Type Severity Reaction Status Date / Time No Known Allergies Allergy Unverified 06/19/19 14:20 ED Review of Systems ROS: Stated complaint: ALTERED MENTAL STATUS Other details as noted in HPI Comment: Unobtainable due to pts medical conditions ED Past Medical Hx - Past Medical History Previous Medical History?: Yes Hx Hypertension: Yes Hx Congestive Heart Failure: No Hx Diabetes: No Hx Renal Disease: Yes Hx Seizures: Yes Hx Psychiatric Treatment: Yes (Dementia, Depression) Hx Asthma: No Hx COPD: No Hx Dementia: Yes Hx HIV: Yes (Pt has toxoplasmosis) Additional medical history: Anemia, Hyperlipidema, HIV, dementia - Surgical History Past Surgical History?: No - Family History Family history: no significant - Social History Smoking Status: Never Smoker Substance Use Type: None - Medications Home Medications: Home Medications Medication Instructions Recorded Confirmed Last Taken Type ALBUTEROL NEB's [Proventil 0.083% 2.5 mg IH Q4HRT PRN nebu 11/08/19 Unknown Rx NEBS] Acetaminophen [Acetaminophen TAB] 650 mg PO Q4H PRN tablet 11/08/19 Unknown Rx Docusate Sodium [Colace CAP] 100 mg PO BID capsule 11/08/19 Unknown Rx levETIRAcetam [Keppra TAB] 1,000 mg PO BID #60 tab 11/08/19 Unknown Rx Abacavir [Ziagen TAB] 600 mg PO DAILY tablet 05/07/20 Unknown Rx Apixaban [Eliquis] 5 mg PO Q12HR #60 tablet 05/07/20 Unknown Rx Ascorbic Acid [Vitamin C] 500 mg PO BID tablet 05/07/20 Unknown Rx Aspirin [Aspirin BABY CHEW TAB] 81 mg PO QDAY tab.chew 05/07/20 Unknown Rx Darunavir [Prezista] 800 mg PO QDAY tablet 05/07/[address] [Depakote Dr] 500 mg PO BID tablet 05/07/20 Unknown Rx Dolutegravir [Tivicay] 50 mg PO QDAY tablet 05/07/20 Unknown Rx Emtricitabine [Emtriva] 200 mg PO QDAY capsule 05/07/20 Unknown Rx Escitalopram [Lexapro] 10 mg PO QDAY tablet 05/07/20 Unknown Rx Metoprolol [Lopressor TAB] 50 mg PO TID tablet 05/07/20 Unknown Rx Pantoprazole [Protonix TAB] 40 mg PO DAILY tablet 05/07/20 Unknown Rx Phenytoin [Dilantin] 100 mg PO Q8HR #90 capsule 05/07/20 Unknown Rx Ritonavir 100 mg PO QDAY tab 05/07/20 Unknown Rx amLODIPine 10 mg PO QDAY tablet 05/07/20 Unknown Rx dexAMETHasone [Decadron] 6 mg PO Q24HR tablet 05/07/20 Unknown Rx donepeziL [Aricept] 10 mg PO QHS tablet 05/07/20 Unknown Rx ED Physical Exam - General Limitations: No Limitations General appearance: alert, in no apparent distress - Head Head exam: Present: atraumatic, normocephalic - Eye Eye exam: Present: normal appearance - ENT ENT exam: Present: mucous membranes moist - Neck Neck exam: Present: normal inspection - Respiratory Respiratory exam: Present: normal lung sounds bilaterally. Absent: respiratory distress - Cardiovascular Cardiovascular Exam: Present: regular rate, normal rhythm. Absent: systolic murmur, diastolic murmur, rubs, gallop - GI/Abdominal GI/Abdominal exam: Present: soft, tenderness (Right lower quadrant tenderness), normal bowel sounds, other (Severe right inguinal tenderness.) - Rectal Rectal exam: Present: deferred - Extremities Exam Extremities exam: Present: normal inspection - Back Exam Back exam: Present: normal inspection - Neurological Exam Neurological exam: Present: alert, oriented X3 - Psychiatric Psychiatric exam: Present: normal affect, normal mood - Skin Skin exam: Present: warm, dry, intact, normal color. Absent: rash ED Course Vital Signs 08/14/20 00:56 Temperature 98.6 F Pulse Rate 67 Respiratory 20 Rate Blood Pressure 151/99 O2 Sat by Pulse 96 Oximetry - Reevaluation(s) Reevaluation #1: Initial evaluation done. Patient's baseline mentation is unknown. Patient will have an altered mental status work-up along with abdominal CT. 08/14/20 03:43 Reevaluation #2: I discussed all results with patient. I discussed plan of care with patient. Patient agrees with plan of care and admission. Patient to be admitted to the hospitalist service. 08/14/20 05:50 - Consultations Consultation #1: Hospitalist consulted for admission. Hospitalist to admit patient. 08/14/20 05:50 Consultation #2: General surgery consult. 08/14/20 06:51 ED Medical Decision Making - Lab Data Result diagrams: 08/14/20 01:20 08/14/20 01:20 - Radiology Data Radiology results: report reviewed CT ABDOMEN AND PELVIS WITH CONTRAST INDICATION / CLINICAL INFORMATION: A.M.S., R.L.Q. abdominal pain. RIGHT Inguinal pain. TECHNIQUE: Axial CT images were obtained through the abdomen and pelvis after 100 mL O mnipaque [address] scans at this location are performed using CT dose reduction for ALARA by means of automated exposure control. COMPARISON: CT abdomen pelvis 09/19/2019 and lower extremity ultrasound 05/05/2020 FINDINGS: LOWER CHEST: No significant abnormality. LIVER: No significant abnormality. BILIARY SYSTEM: No significant abnormality. PANCREAS: No significant abnormality. SPLEEN: No significant abnormality. ADRENALS: No significant abnormality. KIDNEYS and URETERS: Small right renal cyst. STOMACH / BOWEL: The sigmoid colon enters a right inguinal hernia, where there is associated mild adjacent stranding and fluid in the hernia canal. There is no evidence of upstream obstruction. The appendix is normal. PERITONEUM: No free air. No fluid collection. LYMPH NODES: No significant adenopathy. VASCULAR STRUCTURES: There is heterogeneous attenuation in the iliac veins and focal hypodensity seen in the IVC beneath the level of the renal veins. URINARY BLADDER: Mild circumferential bladder wall thickening, possibly related to bladder outlet obstruction from BPH. REPRODUCTIVE ORGANS: The prostate appears mildly enlarged. ADDITIONAL FINDINGS: None. SKELETAL SYSTEM: No significant abnormality. IMPRESSION: 1. The sigmoid colon enters a right inguinal hernia. There is associated mild stranding and fluid in the hernia canal, but no evidence of upstream obstruction. 2. Heterogeneous attenuation in the iliac veins and IVC inferior to the level of the kidneys. This is most compatible with nonocclusive thrombus, in this patient with documented history of bilateral lower extremity DVT on prior ultrasound from 05/05/2020. CT head/brain wo con INDICATION: Altered Mental Status. TECHNIQUE: Routine CT head without contrast. All CT scans at this location are performed using CT dose reduction for ALARA by means of automated exposure control. COMPARISON: CT head 05/01/2020 FINDINGS: BRAIN / INTRACRANIAL CONTENTS: No acute hemorrhage, mass effect, midline shift, or hydrocephalus. No appreciable acute large territorial or lacunar infarct. Moderate parenchymal volume loss is similar to prior examination. Extensive white matter hypodensity is similar to slightly worsened compared with prior examination. There is preserved vasquez-white differentiation. There is unchanged chronic lacunar infarct in the left caudate head and left basal ganglia. Unchanged parenchymal calcification in the right basal ganglia. ORBITS: No significant abnormality of visualized orbits. SINUSES / MASTOIDS: No significant abnormality of visualized sinuses and mastoid air cells. ADDITIONAL FINDINGS: None. IMPRESSION: 1. No acute intracranial abnormality on noncontrast CT of the brain. 2. Moderate parenchymal volume loss. Extensive nonspecific white matter hypodensity appears similar to slightly worsened compared with prior examination. - Medical Decision Making Patient is a 64-year-old male that presents emergency room with right lower quadrant pain after a fall and altered mental status. [facility] Patient had labs done which were essentially unremarka ble. Patient's UA was negative. Patient had abdominal CT for his complaints of abdominal pain and inguinal pain and the CT shows stranding around his hernia site. Patient had a head CT for the ultimate status was negative for acute finding. Patient admitted to the hospitalist service. General surgery consulted. - Differential Diagnosis Altered mental status, abdominal pain, appendicitis, inflamed hernia. Critical Care Time: Yes Critical care time in (mins) excluding proc time.: 35 Critical care attestation.: If time is entered above; I have spent that time in minutes in the direct care of this critically ill patient, excluding procedure time. Critical Care Time: 35 minutes ED Disposition Clinical Impression: Left lower quadrant abdominal pain Inguinal hernia Qualifiers: Obstruction and gangrene presence: without obstruction or gangrene Laterality: unilateral Recurrence: non-recurrent Qualified Code(s): K40.90 - Unilateral inguinal hernia, without obstruction or gangrene, not specified as recurrent Altered mental state Qualifiers: Altered mental status type: unspecified Qualified Code(s): R41.82 - Altered mental status, unspecified Fall Qualifiers: Encounter type: initial encounter Qualified Code(s): W19.XXXA - Unspecified fall, initial encounter Disposition: DC-09 OP ADMIT IP TO THIS HOSP Is pt being admited?: Yes Does the pt Need Aspirin: No Condition: Critical Time of Disposition: 07:50
[2020-08-14 04:49] LABS: Anisocytosis Few; Platelet Estimate Consistent w Auto; Total Cells Counted 100
--- NOTE | 2020-08-14 05:22 | Cat Scan Report ---
CT head/brain wo con INDICATION: Altered Mental Status. TECHNIQUE: Routine CT head without contrast. All CT scans at this location are performed using CT dos e reduction for ALARA by means of automated exposure control. COMPARISON: CT head 05/01/2020 FINDINGS: BRAIN / INTRACRANIAL CONTENTS: No acute hemorrhage, mass effect, midline shift, or hydrocephalus. No appreciable acute large territorial or lacunar infarct. Moderate parenchymal volume loss is similar t o prior examination. Extensive white matter hypodensity is similar to slightly worsened compared with prior examination. There is preserved vasquez-white differentiation. There is unchanged chronic lacunar infarct in the left caudate head and left basal ganglia. Unchanged parenchymal calcification in the right basal ganglia. ORBITS: No significant abnormality of visualized orbits. SINUSES / MASTOIDS: No significant abnormality of visualized sinuses and mastoid air cells. ADDITIONAL FINDINGS: None. IMPRESSION: 1. No acute intracranial abnormality on noncontrast CT of the brain. 2. Moderate parenchymal volume loss. Extensive nonspecific white matter hypodensity appears similar t o slightly worsened compared with prior examination. Signer Name: Jessica Casas MD Signed: 08/14/2020 5:18 AM Workstation Name: [id number]
--- NOTE | 2020-08-14 06:19 | Cat Scan Report ---
CT ABDOMEN AND PELVIS WITH CONTRAST INDICATION / CLINICAL INFORMATION: A.M.S., R.L.Q. abdominal pain. RIGHT Inguinal pain. TECHNIQUE: Axial CT images were obtained through the abdomen and pelvis after 100 mL Omnipaque [address] scans at this location are performed using CT dose reduction for ALARA by means of automated exposure control. COMPARISON: CT abdomen pelvis 09/19/2019 and lower extremity ultrasound 05/05/2020 FINDINGS: LOWER CHEST: No significant abnormality. LIVER: No significant abnormality. BILIARY SYSTEM: No significant abnormality. PANCREAS: No significant abnormality. SPLEEN: No significant abnormality. ADRENALS: No significant abnormality. KIDNEYS and URETERS: Small right renal cyst. STOMACH / BOWEL: The sigmoid colon enters a right inguinal hernia, where there is associated mild adj acent stranding and fluid in the hernia canal. There is no evidence of upstream obstruction. The appe ndix is normal. PERITONEUM: No free air. No fluid collection. LYMPH NODES: No significant adenopathy. VASCULAR STRUCTURES: There is heterogeneous attenuation in the iliac veins and focal hypodensity seen in the IVC beneath the level of the renal veins. URINARY BLADDER: Mild circumferential bladder wall thickening, possibly related to bladder outlet obs truction from BPH. REPRODUCTIVE ORGANS: The prostate appears mildly enlarged. ADDITIONAL FINDINGS: None. SKELETAL SYSTEM: No significant abnormality. IMPRESSION: 1. The sigmoid colon enters a right inguinal hernia. There is associated mild stranding and fluid in the hernia canal, but no evidence of upstream obstruction. 2. Heterogeneous attenuation in the iliac veins and IVC inferior to the level of the kidneys. This is most compatible with nonocclusive thrombus, in this patient with documented history of bilateral low er extremity DVT on prior ultrasound from 05/05/2020. Signer Name: Jessica Casas MD Signed: 08/14/2020 6:15 AM Workstation Name: [employer]
[2020-08-14 07:04] LABS: Bilirubin,Urine NEG (Negative); Blood,Urine NEG (Negative); Color,Urine Yellow (Yellow); Mucus,Urine FEW /HPF; Urobilinogen,Urine < 2.0 mg/dL (<2.0)
[2020-08-14] MEDS ORDERED: PIPERACILLIN/TAZOBACTAM 3.375 3.375 GM/50 ML BAG IV ONE (07:57)
[2020-08-14] MEDS ORDERED: MORPHINE 2 MG/1 ML INJ IV PRN (08:01)
[2020-08-14] MEDS ORDERED: ALBUTEROL 2.5 MG/3 ML NEBU IH PRN (08:02)
--- NOTE | 2020-08-14 08:21 | History and Physical Report ---
History of Present Illness Date of examination: 08/14/20 Chief complaint: Right groin pain History of present illness: Note; patient is demented and also altered and is not able to give detailed history. History is obtained from chart review and his sister. Patient complaining of right groin pain. Could not characterize the pain but he said it is very bad pain. 64-year-old -I[place]ian male with past medical history significant for HIV, dementia, right inguinal hernia, DVT, ?Seizure presented to the emergency department with complaints of right inguinal pain. He states the pain has been persistent for months. He said he know he had right inguinal hernia and seen a doctor and told him he is going to do surgery. Patient is living in exiting residential. Patient is on HIV medication. Patient is on Eliquis. There is a report from residential patient is confused. Per his sister he has dementia but alert and oriented. In the emergency department CT head was done and was normal. CT abdomen and pelvis was done and showed sigmoid colon enters in the right inguinal hernia and there is stranding there, no obstruction. 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 In the emergency department surgery consulted for the management of painful right inguinal hernia, hematology consulted for the management of iliac vein thrombosis despite on Eliquis, neurology was consulted for altered mental status. Review of systems could not be obtained because the patient is altered. Past History Past Medical History: DVT, other (HIV/AIDS, dementia) Past Surgical History: Other (Could not obtain because the patient is altered) Social history: AND/DNR-allow natural . denies: smoking, alcohol abuse, prescription drug abuse Family history: other (Did not obtain because the patient is altered) Medications and Allergies Allergies Allergy/AdvReac Type Severity Reaction Status Date / Time No Known Allergies Allergy Unverified 06/19/19 14:20 Home Medications Medication Instructions Recorded Confirmed Last Taken Type ALBUTEROL NEB's [Proventil 0.083% 2.5 mg IH Q4HRT PRN nebu 11/08/19 Unknown Rx NEBS] Acetaminophen [Acetaminophen TAB] 650 mg PO Q4H PRN tablet 11/08/19 Unknown Rx Docusate Sodium [Colace CAP] 100 mg PO BID capsule 11/08/19 Unknown Rx levETIRAcetam [Keppra TAB] 1,000 mg PO BID #60 tab 11/08/19 Unknown Rx Abacavir [Ziagen TAB] 600 mg PO DAILY tablet 05/07/20 Unknown Rx Apixaban [Eliquis] 5 mg PO Q12HR #60 tablet 05/07/20 Unknown Rx Ascorbic Acid [Vitamin C] 500 mg PO BID tablet 05/07/20 Unknown Rx Aspirin [Aspirin BABY CHEW TAB] 81 mg PO QDAY tab.chew 05/07/20 Unknown Rx Darunavir [Prezista] 800 mg PO QDAY tablet 05/07/[address] [Depakote Dr] 500 mg PO BID tablet 05/07/20 Unknown Rx Dolutegravir [Tivicay] 50 mg PO QDAY tablet 05/07/20 Unknown Rx Emtricitabine [Emtriva] 200 mg PO QDAY capsule 05/07/20 Unknown Rx Escitalopram [Lexapro] 10 mg PO QDAY tablet 05/07/20 Unknown Rx Metoprolol [Lopressor TAB] 50 mg PO TID tablet 05/07/20 Unknown Rx Pantoprazole [Protonix TAB] 40 mg PO DAILY tablet 05/07/20 Unknown Rx Phenytoin [Dilantin] 100 mg PO Q8HR #90 capsule 05/07/20 Unknown Rx Ritonavir 100 mg PO QDAY tab 05/07/20 Unknown Rx amLODIPine 10 mg PO QDAY tablet 05/07/20 Unknown Rx dexAMETHasone [Decadron] 6 mg PO Q24HR tablet 05/07/20 Unknown Rx donepeziL [Aricept] 10 mg PO QHS tablet 05/07/20 Unknown Rx Active Meds: Active Medications Abacavir Sulfate (Abacavir 300 Mg Tab) 600 mg PO DAILY PATTIE Albuterol (Albuterol 2.5 Mg/3 Ml Nebu) 2.5 mg IH Q4HRT PRN PRN Reason: Shortness Of Breath Darunavir (Darunavir 800 Mg Tab) 800 mg PO QDAY PATTIE Divalproex Sodium (Divalproex Dr 500 Mg Tab) 500 mg PO BID PATTIE Docusate Sodium (Docusate Sodium 100 Mg Cap) 100 mg PO BID PATTIE Piperacillin Sod/Tazobactam Sod (Zosyn/Ns 3.375gm/50ml) 3.375 gm in 50 mls @ 100 mls/hr IV ONCE ONE; Protocol Stop: 08/14/20 08:26 Piperacillin Sod/Tazobactam Sod (Zosyn/Ns 4.5gm/100ml) 4.5 gm in 100 mls @ 200 mls/hr IV Q8HR PATTIE; Protocol Morphine Sulfate (Morphine 2 Mg/1 Ml Inj) 2 mg IV Q4H PRN PRN Reason: Pain, Moderate (4-6) Review of Systems ROS unobtainable: due to mental status (patient is demented and altered) Exam - Physical Exam Narrative exam: Not in cardiopulmonary distress. The patient appeared well nourished and normally developed. Vital signs as documented. Head exam is unremarkable. No scleral icterus . Neck is without jugular venous distension, thyromegaly, or carotid bruits. Lungs are clear to auscultation. Cardiac exam reveals regular rate and Rhythm. Abdominal exam reveals; generalized abdominal tenderness pronounced at right lower quadrant. Extremities are nonedematous and both femoral and pedal pulses are normal. SAMPLE DISTRIBUTOR: Patient is confused.. - Constitutional Vitals: Temp Pulse Resp BP Pulse Ox 98.6 F 67 20 151/99 96 08/14/20 00:56 08/14/20 00:56 08/14/20 00:56 08/14/20 00:56 08/14/20 00:56 Results - Labs CBC & Chem 7: 08/14/20 01:20 08/14/20 01:20 Labs: Laboratory Last Values WBC 3.9 K/mm3 (4.5-11.0) L 08/14/20 01:20 RBC 4.80 M/mm3 (3.65-5.03) 08/14/20 01:20 Hgb 14.5 gm/dl (11.8-15.2) 08/14/20 01:20 Hct 43.1 % (35.5-45.6) 08/14/20 01:20 MCV 90 fl (84-94) 08/14/20 01:20 MCH 30 pg (28-32) 08/14/20 01:20 MCHC 34 % (32-34) 08/14/20 01:20 RDW 13.9 % (13.2-15.2) 08/14/20 01:20 Plt Count 178 K/mm3 (140-440) 08/14/20 01:20 [place] % (Auto) Veterinary Bacteriologist 08/14/20 01:20 Add Manual Diff Complete 12/11/20 01:20 Total Counted 100 08/14/20 01:20 Seg Neuts % (Manual) 38.0 % (40.0-70.0) L 08/14/20 01:20 Lymphocytes % (Manual) 50.0 % (13.4-35.0) H 08/14/20 01:20 Monocytes % (Manual) 12.0 % (0.0-7.3) H 08/14/20 01:20 Nucleated RBC % Not Reportable 08/14/20 01:20 Seg Neutrophils # Man 1.5 K/mm3 (1.8-7.7) L 08/14/20 01:20 Band Neutrophils # 0.0 K/mm3 08/14/20 01:20 Lymphocytes # (Manual) 2.0 K/mm3 (1.2-5.4) 08/14/20 01:20 Abs React Lymphs (Man) 0.0 K/mm3 08/14/20 01:20 Monocytes # (Manual) 0.5 K/mm3 (0.0-0.8) 08/14/20 01:20 Eosinophils # (Manual) 0.0 K/mm3 (0.0-0.4) 08/14/20 01:20 Basophils # (Manual) 0.0 K/mm3 (0.0-0.1) 08/14/20 01:20 Metamyelocytes # 0.0 K/mm3 08/14/20 01:20 Myelocytes # 0.0 K/mm3 08/14/20 01:20 Promyelocytes # 0.0 K/mm3 08/14/20 01:20 Blast Cells # 0.0 K/mm3 08/14/20 01:20 WBC Morphology Not Reportable 08/14/20 01:20 Hypersegmented Neuts Not Reportable 08/14/20 01:20 Hyposegmented Neuts Not Reportable 08/14/20 01:20 Hypogranular Neuts Not Reportable 08/14/20 01:20 Smudge Cells Not Reportable 08/14/20 01:20 Toxic Granulation Not Reportable 08/14/20 01:20 Toxic Vacuolation Not Reportable 08/14/20 01:20 Dohle Bodies Not Reportable 08/14/20 01:20 Pelger-Huet Anomaly Not Reportable 08/14/20 01:20 Idalmis Rods Not Reportable 08/14/20 01:20 Platelet Estimate Consistent w auto 08/14/20 01:20 Clumped Platelets Not Reportable 08/14/20 01:20 Plt Clumps, EDTA Not Reportable 08/14/20 01:20 Large Platelets Not Reportable 08/14/20 01:20 Giant Platelets Not Reportable 08/14/20 01:20 Platelet Satelliting Not Reportable 08/14/20 01:20 Plt Morphology Comment Not Reportable 08/14/20 01:20 RBC Morphology Not Reportable 08/14/20 01:20 Dimorphic RBCs Not Reportable 08/14/20 01:20 Polychromasia Not Reportable 08/14/20 01:20 Hypochromasia Not Reportable 08/14/20 01:20 Poikilocytosis Not Reportable 08/14/20 01:20 Anisocytosis Few 08/14/20 01:20 Microcytosis Not Reportable 08/14/20 01:20 Macrocytosis Not Reportable 08/14/20 01:20 Spherocytes Not Reportable 08/14/20 01:20 Pappenheimer Bodies Not Reportable 08/14/20 01:20 Sickle Cells Not Reportable 08/14/20 01:20 Target Cells Not Reportable 08/14/20 01:20 Tear Drop Cells Not Reportable 08/14/20 01:20 Ovalocytes Not Reportable 08/14/20 01:20 Helmet Cells Not Reportable 08/14/20 01:20 [place] Bodies Not Reportable 08/14/20 01:20 [place] Rings Not Reportable 08/14/20 01:20 Tamie Cells Not Reportable 08/14/20 01:20 Bite Cells Not Reportable 08/14/20 01:20 Crenated Cell Not Reportable 08/14/20 01:20 Elliptocytes Not Reportable 08/14/20 01:20 Acanthocytes (Spur) Not Reportable 08/14/20 01:20 Rouleaux Not Reportable 08/14/20 01:20 Hemoglobin C Crystals Not Reportable 08/14/20 01:20 Schistocytes Not Reportable 08/14/20 01:20 Malaria parasites Not Reportable 08/14/20 01:20 Brian Bodies Not Reportable 08/14/20 01:20 Hem Pathologist Commnt No 08/14/20 01:20 Sodium 134 mmol/L (137-145) L 08/14/20 01:20 Potassium 4.0 mmol/L (3.6-5.0) 08/14/20 01:20 Chloride 103.0 mmol/L (98-107) 08/14/20 01:20 Carbon Dioxide 21 mmol/L (22-30) L 08/14/20 01:20 Anion Gap 14 mmol/L 08/14/20 01:20 BUN 13 mg/dL (9-20) 08/14/20 01:20 Creatinine 1.1 mg/dL (0.8-1.3) 08/14/20 01:20 Estimated GFR > 60 ml/min 08/14/20 01:20 BUN/Creatinine Ratio 12 % 08/14/20 01:20 Glucose 100 mg/dL (75-100) 08/14/20 01:20 Calcium 10.1 mg/dL (8.4-10.2) 08/14/20 01:20 Urine Color Yellow (Yellow) 08/14/20 Unknown Urine Turbidity Clear (Clear) 08/14/20 Unknown Urine pH 6.0 (5.0-7.0) 08/14/20 Unknown Ur Specific [place] 1.050 (1.003-1.030) H 08/14/20 Unknown Urine Protein 30 mg/dl mg/dL (Negative) 08/14/20 Unknown Urine Glucose (UA) Neg mg/dL (Negative) 08/14/20 Unknown Urine Ketones Neg mg/dL (Negative) 08/14/20 Unknown Urine Blood Neg (Negative) 08/14/20 Unknown Urine Nitrite Neg (Negative) 08/14/20 Unknown Urine Bilirubin Neg (Negative) 08/14/20 Unknown Urine Urobilinogen < 2.0 mg/dL (<2.0) 08/14/20 Unknown Ur Leukocyte Esterase Neg (Negative) 08/14/20 Unknown Urine WBC (Auto) 1.0 /HPF (0.0-6.0) 08/14/20 Unknown Urine RBC (Auto) 2.0 /HPF (0.0-6.0) 08/14/20 Unknown U Epithel Cells (Auto) 1.0 /HPF (0-13.0) 08/14/20 Unknown Urine Mucus Few /HPF 08/14/20 Unknown Chang/IV: IV Catheter Type [left ac] Peripheral IV Assessment and Plan Assessment and plan: Painful right inguinal hernia, with fluid stranding -General surgery consulted for management -Patient is on IV Zosyn and IV morphine for pain control Altered mental status, metabolic encephalopathy, on top of dementia -CT head is negative -Neurology consulted Iliac vein thrombosis, nonobstructive -Patient was on Eliquis and Eliquis on hold for now if the patient is going to have surgery -I have consulted hematology -We will start anticoagulation after patient is evaluated by surgery HIV/AIDS -Continue home medications CODE STATUS -DNR. Discussed with his sister Tami Zaragoza at [phone]. She said he does not want resuscitation -Sister stated if surgery is needed she is okay with the procedure. Disposition; patient will be admitted to telemetry floor. Management plan was discussed with his sister was in agreement with the plan of care. Advance Directives: Yes VTE prophylaxis?: Mechanical Reason for no VTE Prophylaxis: Surgical contraindication Plan of care discussed with patient/family: Yes
[2020-08-14] MEDS: DOCUSATE SODIUM 100 MG CAP PO SCH ×2 (09:30→21:53)
[2020-08-14] MEDS: DIVALPROEX DR 500 MG TAB PO SCH ×2 (09:30→21:51)
[2020-08-14] MEDS: ABACAVIR 300 MG TAB PO SCH (10:17)
[2020-08-14] MEDS: DARUNAVIR 800 MG TAB PO SCH (10:17)
[2020-08-14] MEDS: DOLUTEGRAVIR 50 MG TAB PO SCH (10:17)
--- NOTE | 2020-08-14 11:24 | Consultation ---
History of Present Illness Consult date: 08/14/20 Reason for consult: abdominal pain Chief complaint: Pain - History of present illness History of present illness: 64-year-old male with past medical history of HIV who [facility] the [facility] from [facility] with altered mental status. The patient is an extremely poor historian and most of the history is obtained from the chart. The patient states that he has been just trying to get along. He states he has had a right sided inguinal hernia for many months and it has become more painful over time. He denies ever having an evaluation by surgeon in the past. He states he usually has bowel movements every 3 to 4 days. His last BM was 3 days ago and was normal. He states that he has a poor appetite and is not sure why. He feels it may be related to the type of food he is being served at the halfway. No nausea or vomiting. His pain is localized in the right groin and does not radiate. It is sharp at times. He denies skin changes in the area. Work-up in the emergency room included a CT scan which had multiple findings including right inguinal hernia containing sigmoid colon, iliac vein thrombosis. Hematology consulted by primary team and neurology consulted for altered mental status. Patient is on Eliquis. He states it was started at another hospital and believes his last dose was yesterday. He cannot elaborate as to why he is on Eliquis. Past History Past Medical History: DVT, other (HIV/AIDS, dementia) Past Surgical History: Other (Could not obtain because the patient is altered) Social history: AND/DNR-allow natural . denies: smoking, alcohol abuse, prescription drug abuse Family history: other (Did not obtain because the patient is altered) Medications and Allergies Allergies Allergy/AdvReac Type Severity Reaction Status Date / Time No Known Allergies Allergy Unverified 06/19/19 14:20 Home Medications Medication Instructions Recorded Confirmed Last Taken Type ALBUTEROL NEB's [Proventil 0.083% 2.5 mg IH Q4HRT PRN nebu 11/08/19 Unknown Rx NEBS] Acetaminophen [Acetaminophen TAB] 650 mg PO Q4H PRN tablet 11/08/19 Unknown Rx Docusate Sodium [Colace CAP] 100 mg PO BID capsule 11/08/19 Unknown Rx levETIRAcetam [Keppra TAB] 1,000 mg PO BID #60 tab 11/08/19 Unknown Rx Abacavir [Ziagen TAB] 600 mg PO DAILY tablet 05/07/20 Unknown Rx Apixaban [Eliquis] 5 mg PO Q12HR #60 tablet 05/07/20 Unknown Rx Ascorbic Acid [Vitamin C] 500 mg PO BID tablet 05/07/20 Unknown Rx Aspirin [Aspirin BABY CHEW TAB] 81 mg PO QDAY tab.chew 05/07/20 Unknown Rx Darunavir [Prezista] 800 mg PO QDAY tablet 05/07/[address] [Depakote Dr] 500 mg PO BID tablet 05/07/20 Unknown Rx Dolutegravir [Tivicay] 50 mg PO QDAY tablet 05/07/20 Unknown Rx Emtricitabine [Emtriva] 200 mg PO QDAY capsule 05/07/20 Unknown Rx Escitalopram [Lexapro] 10 mg PO QDAY tablet 05/07/20 Unknown Rx Metoprolol [Lopressor TAB] 50 mg PO TID tablet 05/07/20 Unknown Rx Pantoprazole [Protonix TAB] 40 mg PO DAILY tablet 05/07/20 Unknown Rx Phenytoin [Dilantin] 100 mg PO Q8HR #90 capsule 05/07/20 Unknown Rx Ritonavir 100 mg PO QDAY tab 05/07/20 Unknown Rx amLODIPine 10 mg PO QDAY tablet 05/07/20 Unknown Rx dexAMETHasone [Decadron] 6 mg PO Q24HR tablet 05/07/20 Unknown Rx donepeziL [Aricept] 10 mg PO QHS tablet 05/07/20 Unknown Rx Active Meds: Active Medications Abacavir Sulfate (Abacavir 300 Mg Tab) 600 mg PO DAILY [facility] Last Admin: 08/14/20 10:17 Dose: 600 mg Documented by: Albuterol (Albuterol 2.5 Mg/3 Ml Nebu) 2.5 mg IH Q4HRT PRN PRN Reason: Shortness Of Breath Last Admin: 08/14/20 09:30 Dose: 2.5 mg Documented by: Darunavir (Darunavir 800 Mg Tab) 800 mg PO QDAY [facility] Last Admin: 08/14/20 10:17 Dose: 800 mg Documented by: Divalproex Sodium (Divalproex Dr 500 Mg Tab) 500 mg PO BID [facility] Last Admin: 08/14/20 09:30 Dose: 500 mg Documented by: Docusate Sodium (Docusate Sodium 100 Mg Cap) 100 mg PO BID PATTIE Last Admin: 08/14/20 09:30 Dose: 100 mg Documented by: Piperacillin Sod/Tazobactam Sod (Zosyn/Ns 4.5gm/100ml) 4.5 gm in 100 mls @ 200 mls/hr IV Q8HR PATTIE; Protocol Morphine Sulfate (Morphine 2 Mg/1 Ml Inj) 2 mg IV Q4H PRN PRN Reason: Pain, Moderate (4-6) Last Admin: 08/14/20 09:30 Dose: 2 mg Documented by: Review of Systems ROS unobtainable: due to mental status Exam Vital Signs Temp Pulse Resp BP Pulse Ox 98.6 F 67 20 151/99 96 08/14/20 00:56 08/14/20 00:56 08/14/20 00:56 08/14/20 00:56 08/14/20 00:56 Narrative exam: Gen.: Awake, alert, oriented 2. No apparent distress. Disheveled appearing with poor hygiene. ENT: Trachea midline. No lymphadenopathy. No scleral icterus or conjunctival pallor. No teeth. CV: S1, S2 present Respiratory: No audible wheezes Abdomen: Soft, nondistended, nontender. Right inguinal hernia. The hernia is soft and easily reducible with mild tenderness to palpation during reduction. There are no skin changes. No rebound, rigidity, guarding Extremities: No clubbing, cyanosis, edema Results - Labs 08/14/20 01:20 08/14/20 01:20 Abnormal lab results 08/14/20 08/14/20 08/14/20 Range/Units 01:20 01:20 Unknown WBC 3.9 L (4.5-11.0) K/mm3 Seg Neuts % (Manual) 38.0 L (40.0-70.0) % Lymphocytes % (Manual) 50.0 H (13.4-35.0) % Monocytes % (Manual) 12.0 H (0.0-7.3) % Seg Neutrophils # Man 1.5 L (1.8-7.7) K/mm3 Sodium 134 L (137-145) mmol/L Carbon Dioxide 21 L (22-30) mmol/L Ur Specific [place] 1.050 H (1.003-1.030) Diabetes panel 08/14/20 Range/Units 01:20 Sodium 134 L (137-145) mmol/L Potassium 4.0 (3.6-5.0) mmol/L Chloride 103.0 (98-107) mmol/L Carbon Dioxide 21 L (22-30) mmol/L BUN 13 (9-20) mg/dL Creatinine 1.1 (0.8-1.3) mg/dL Glucose 100 (75-100) mg/dL Calcium 10.1 (8.4-10.2) mg/dL Calcium panel 08/14/20 Range/Units 01:20 Calcium 10.1 (8.4-10.2) mg/dL Pituitary panel 08/14/20 Range/Units 01:20 Sodium 134 L (137-145) mmol/L Potassium 4.0 (3.6-5.0) mmol/L Chloride 103.0 (98-107) mmol/L Carbon Dioxide 21 L (22-30) mmol/L BUN 13 (9-20) mg/dL Creatinine 1.1 (0.8-1.3) mg/dL Glucose 100 (75-100) mg/dL Calcium 10.1 (8.4-10.2) mg/dL Adrenal panel 08/14/20 Range/Units 01:20 Sodium 134 L (137-145) mmol/L Potassium 4.0 (3.6-5.0) mmol/L Chloride 103.0 (98-107) mmol/L Carbon Dioxide 21 L (22-30) mmol/L BUN 13 (9-20) mg/dL Creatinine 1.1 (0.8-1.3) mg/dL Glucose 100 (75-100) mg/dL Calcium 10.1 (8.4-10.2) mg/dL - Imaging CT scan - abdomen: report reviewed, image reviewed CT scan - pelvis: report reviewed, image reviewed Assessment and Plan 64-year-old male with chronic right inguinal hernia containing nonobstructed colon Plan: 1. Diet as tolerated 2. IVF 3. hematology consult pending 4. neurology consult pending 5. prn pain control 6. As hernia is chronic, easily reducible, and not obstructed, there is no urgent or emergent need for surgery. I do recommend repair of the right inguinal hernia as it is symptomatic but this can be done electively. If the patient remains in the hospital until next week, and is cleared by consultants, we can schedule surgery as an inpatient. Eliquis will need to be held for at least 48 hours prior to any surgical intervention. Otherwise, he may follow up in surgery clinic as outpatient. Plan discussed with patient and he understands Thank you for this consultation. Please call with any questions or concerns. Evaluation and treatment of this patient was during the time of the national and state emergency arising from COVID19 coronavirus pandemic. Treatment and procedures performed meet the current and available best practice and guidelines for patient during the COVID pandemic.
--- NOTE | 2020-08-14 11:36 | Consultation ---
History of Present Illness Consult date: 08/14/20 Reason for Consult: AMS Chief complaint: Encephalopathy History of present illness: 64 yo female with hiv, dementia, ?seizure d/o, depression, anemia, hld, dvt (on eliquis), who presents with noted encephalopathy, where, per her sister, normally at baseline, the patient is alert and oriented. Secondary to pt's mentation no further clinical history can be obtained. Per RN, the patient has been answering inappropriately to simple questions. No clinical seizure activity noted. Per H&P for this admission - Patient complaining of right groin pain. Could not characterize the pain but he said it is very bad pain. 64-year-old -Swiss male with past medical history significant for HIV, dementia, right inguinal hernia, DVT, ?Seizure presented to the emergency department with complaints of right inguinal pain. He states the pain has been persistent for months. He said he know he had right inguinal hernia and seen a doctor and told him he is going to do surgery. Patient is living in exiting halfway. Patient is on HIV medication. Patient is on Eliquis. There is a report from halfway patient is confused. Per his sister he has dementia but alert and oriented. In the emergency department CT head was done and was normal. CT abdomen and pelvis was done and showed sigmoid colon enters in the right inguinal hernia and there is stranding there, no obstruction. 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 In the emergency department surgery consulted for the management of painful right inguinal hernia, hematology consulted for the management of iliac vein thrombosis despite on Eliquis, neurology was consulted for altered mental status. Past History Past Medical History: DVT, other (HIV/AIDS, dementia) Past Surgical History: Other (Could not obtain because the patient is altered) Social history: AND/DNR-allow natural . denies: smoking, alcohol abuse, prescription drug abuse Family history: other (Did not obtain because the patient is altered) Medications and Allergies Allergies Allergy/AdvReac Type Severity Reaction Status Date / Time No Known Allergies Allergy Unverified 06/19/19 14:20 Home Medications Medication Instructions Recorded Confirmed Last Taken Type ALBUTEROL NEB's [Proventil 0.083% 2.5 mg IH Q4HRT PRN nebu 11/08/19 Unknown Rx NEBS] Acetaminophen [Acetaminophen TAB] 650 mg PO Q4H PRN tablet 11/08/19 Unknown Rx Docusate Sodium [Colace CAP] 100 mg PO BID capsule 11/08/19 Unknown Rx levETIRAcetam [Keppra TAB] 1,000 mg PO BID #60 tab 11/08/19 Unknown Rx Abacavir [Ziagen TAB] 600 mg PO DAILY tablet 05/07/20 Unknown Rx Apixaban [Eliquis] 5 mg PO Q12HR #60 tablet 05/07/20 Unknown Rx Ascorbic Acid [Vitamin C] 500 mg PO BID tablet 05/07/20 Unknown Rx Aspirin [Aspirin BABY CHEW TAB] 81 mg PO QDAY tab.chew 05/07/20 Unknown Rx Darunavir [Prezista] 800 mg PO QDAY tablet 05/07/[address] [Depakote Dr] 500 mg PO BID tablet 05/07/20 Unknown Rx Dolutegravir [Tivicay] 50 mg PO QDAY tablet 05/07/20 Unknown Rx Emtricitabine [Emtriva] 200 mg PO QDAY capsule 05/07/20 Unknown Rx Escitalopram [Lexapro] 10 mg PO QDAY tablet 05/07/20 Unknown Rx Metoprolol [Lopressor TAB] 50 mg PO TID tablet 05/07/20 Unknown Rx Pantoprazole [Protonix TAB] 40 mg PO DAILY tablet 05/07/20 Unknown Rx Phenytoin [Dilantin] 100 mg PO Q8HR #90 capsule 05/07/20 Unknown Rx Ritonavir 100 mg PO QDAY tab 05/07/20 Unknown Rx amLODIPine 10 mg PO QDAY tablet 05/07/20 Unknown Rx dexAMETHasone [Decadron] 6 mg PO Q24HR tablet 05/07/20 Unknown Rx donepeziL [Aricept] 10 mg PO QHS tablet 05/07/20 Unknown Rx Active Meds: Active Medications Abacavir Sulfate (Abacavir 300 Mg Tab) 600 mg PO DAILY [facility] Last Admin: 08/14/20 10:17 Dose: 600 mg Documented by: Albuterol (Albuterol 2.5 Mg/3 Ml Nebu) 2.5 mg IH Q4HRT PRN PRN Reason: Shortness Of Breath Last Admin: 08/14/20 09:30 Dose: 2.5 mg Documented by: Darunavir (Darunavir 800 Mg Tab) 800 mg PO QDAY PATTIE Last Admin: 08/14/20 10:17 Dose: 800 mg Documented by: Divalproex Sodium (Divalproex Dr 500 Mg Tab) 500 mg PO BID [facility] Last Admin: 08/14/20 09:30 Dose: 500 mg Documented by: Docusate Sodium (Docusate Sodium 100 Mg Cap) 100 mg PO BID [facility] Last Admin: 08/14/20 09:30 Dose: 100 mg Documented by: Piperacillin Sod/Tazobactam Sod (Zosyn/Ns 4.5gm/100ml) 4.5 gm in 100 mls @ 200 mls/hr IV Q8HR [facility]; Protocol Morphine Sulfate (Morphine 2 Mg/1 Ml Inj) 2 mg IV Q4H PRN PRN Reason: Pain, Moderate (4-6) Last Admin: 08/14/20 09:30 Dose: 2 mg Documented by: Tramadol HCl (Tramadol 50 Mg Tab) 25 mg PO Q8H PRN PRN Reason: Pain, Moderate (4-6) Review of Systems All systems: negative (except as per HPI;) Physical Examination - Vital Signs Vital Signs: Vital Signs Temp Pulse Resp BP Pulse Ox 98.6 F 67 20 151/99 96 08/14/20 00:56 08/14/20 00:56 08/14/20 00:56 08/14/20 00:56 08/14/20 00:56 - Additional Exam Additional Exam: Gen: nad, well-nourished; Head: normocephalic; Eyes: no gaze deviation; no ptosis; ENT: normal vocalization; CVS: warm and well-perfused; Pulm: no respiratory distress; GI: non-distended; Ext: no cyanosis at distal extremities; Skin: no acute rash at distal extremities; Heme: no pathologic bruising or ecchymosis at distal extremities; Neuro: alert, oriented to name, hospital, not month or year, not hospital name, +slight dysarthria, no aphasia, CN 2 - PERRL, visual graff intact, CN 3, 4, 6 - EOMI, CN 5 - facial sensation symmetric to light touch, CN 7 - facial movement symmetric, CN 8 - hearing grossly intact, CN 9, 10 - uvula midline, CN 11 - shrug symmetric, CN 12 - tongue midline; Motor - at least 4+/5 at right exts; at least 3+/5 at left exts; Sensory - light touch symmetric, Cerebellar - fnf /hts difficulty bilaterally, Gait - deferred secondary to fall risk; Results - Laboratory Findings CBC and BMP: 08/14/20 01:20 08/14/20 01:20 Abnormal Lab Findings: Abnormal Labs 08/14/20 08/14/20 08/14/20 01:20 01:20 Unknown WBC 3.9 L Seg Neuts % (Manual) 38.0 L Lymphocytes % (Manual) 50.0 H Monocytes % (Manual) 12.0 H Seg Neutrophils # Man 1.5 L Sodium 134 L Carbon Dioxide 21 L Ur Specific [place] 1.050 H Assessment and Plan 64 yo female with hiv, dementia, ?seizure d/o, depression, anemia, hld, dvt (on eliquis), who presents with noted encephalopathy, where, per her sister, normally at baseline, the patient is alert and oriented. 1. Metabolic Encephalopathy - r/o underlying infection, per primary team. 2. Seizure - ordered EEG; continue home regimen of Keppra; when clinically stable, recommend MRI Brain w/ w/o contrast. 3. Dementia - recommend b12, folate, tsh-t4, vit d; f/u neurology in 4-6 weeks for dementia care. 4. HIV - per primary team. 5. Hx of DVT (iliac vein thrombosis) - continue Eliquis. 6. Right Inguinal Hernia - per primary / surgery team. Rakan Erwin MD Neurology
[2020-08-14] MEDS ORDERED: traMADol 50 MG TAB PO PRN (12:00)
[2020-08-14] MEDS ORDERED: NON-FORMULARY EACH (Levetiracetam [Keppra Tab] 1,000 MG Tablet) PO SCH (12:45)
[2020-08-14] MEDS ORDERED: PIPERACILLIN/TAZOBACTAM 3.375 3.375 GM/50 ML BAG IV SCH (14:00)
[2020-08-14] MEDS: PIPERACIL/TAZOBACTA 4.5/NS 100 4.5 GM/100 ML VIAL IV SCH ×2 (14:19→21:51)
[2020-08-14] MEDS: EMTRICITABINE 200 MG CAP PO SCH (16:06)
[2020-08-14] MEDS: APIXABAN 5 MG TAB PO SCH ×2 (16:07→21:51)
[2020-08-14] MEDS: ASPIRIN 81 MG TAB CHEW PO SCH (16:07)
[2020-08-14] MEDS: levETIRAcetam 500 MG TAB PO SCH ×2 (16:09→21:51)
[2020-08-14] MEDS: ESCITALOPRAM 10 MG TAB PO SCH (16:10)
[2020-08-14] MEDS: PANTOPRAZOLE 40 MG TAB PO SCH (16:10)
[2020-08-14] MEDS: PHENYTOIN 100 MG CAPSULE.ER PO SCH ×2 (16:10→21:51)
--- NOTE | 2020-08-15 02:02 | Hem/Onc Progress Note ---
Subjective Interval history: heme consult for clotting televisit via tsqrd 64yo disabled AA man with AIDS, h/o DVT--was on eliquis maintanance-->now eval for R groin pain transferred from [facility] found to have R inguinal hernia and nonocclusive R iliag vein DVT has been confused, unable to recount his medical history says he has R groin mass started on eliquis 5mg po bid here DATA REVIEWED BELOW IMPRESSION: R inguinal pain likely due to inguinal hernia; not due to clotting nonocclusive-appearing clot near R CFV this clot is probably chronic; doubt he "failed" eliquis this is not likely to be a life-threatening clot RECOMMEND: anticoag with eliquis after discharge (5mg bid) can use either low dose lovenox or eliquis while inpatient OK for eliquis inpatient, but caution with inpatient procedures eval for inguinal hernia surgical repair labs to include Hgb electrophoresis Vital Signs Temp Pulse Resp BP Pulse Ox 98.6 F 68 18 125/80 96 08/14/20 21:58 08/14/20 23:04 08/14/20 23:04 08/14/20 21:58 08/14/20 23:04 Temperature -Last 24 Hours Temperature 98.6 F Temperature 98.4 F Active Medications Abacavir Sulfate (Abacavir 300 Mg Tab) 600 mg PO DAILY [facility] Last Admin: 08/14/20 10:17 Dose: 600 mg Documented by: Albuterol (Albuterol 2.5 Mg/3 Ml Nebu) 2.5 mg IH Q4HRT PRN PRN Reason: Shortness Of Breath Last Admin: 08/14/20 09:30 Dose: 2.5 mg Documented by: Apixaban (Apixaban 5 Mg Tab) 5 mg PO Q12HR [facility]; Protocol Last Admin: 08/14/20 21:51 Dose: 5 mg Documented by: Aspirin (Aspirin 81 Mg Tab Chew) 81 mg PO QDAY [facility] Last Admin: 08/14/20 16:07 Dose: 81 mg Documented by: Darunavir (Darunavir 800 Mg Tab) 800 mg PO QDAY [facility] Last Admin: 08/14/20 10:17 Dose: 800 mg Documented by: Divalproex Sodium (Divalproex Dr 500 Mg Tab) 500 mg PO BID [facility] Last Admin: 08/14/20 21:51 Dose: 500 mg Documented by: Docusate Sodium (Docusate Sodium 100 Mg Cap) 100 mg PO BID [facility] Last Admin: 08/14/20 21:53 Dose: 100 mg Documented by: Emtricitabine (Emtricitabine 200 Mg Cap) 200 mg PO QDAY [facility] Last Admin: 08/14/20 16:06 Dose: 200 mg Documented by: Escitalopram Oxalate (Escitalopram 10 Mg Tab) 10 mg PO QDAY [facility] Last Admin: 08/14/20 16:10 Dose: 10 mg Documented by: Piperacillin Sod/Tazobactam Sod (Zosyn/Ns 4.5gm/100ml) 4.5 gm in 100 mls @ 200 mls/hr IV Q8HR [facility]; Protocol Last Admin: 08/14/20 21:51 Dose: 200 mls/hr Documented by: Levetiracetam (Levetiracetam 500 Mg Tab) 1,000 mg PO BID [facility] Last Admin: 08/14/20 21:51 Dose: 1,000 mg Documented by: Morphine Sulfate (Morphine 2 Mg/1 Ml Inj) 2 mg IV Q4H PRN PRN Reason: Pain, Moderate (4-6) Last Admin: 08/14/20 09:30 Dose: 2 mg Documented by: Pantoprazole Sodium (Pantoprazole 40 Mg Tab) 40 mg PO DAILY [facility] Last Admin: 08/14/20 16:10 Dose: 40 mg Documented by: Phenytoin (Phenytoin 100 Mg Capsule.Er) 100 mg PO Q8HR [facility] Last Admin: 08/14/20 21:51 Dose: 100 mg Documented by: Pneumococcal Polyvalent Vaccine (Pneumococcal 23 Valent 0.5 Ml Vial) 0.5 ml IM .ONCE ONE Stop: 08/15/20 12:01 Tramadol HCl (Tramadol 50 Mg Tab) 25 mg PO Q8H PRN PRN Reason: Pain, Moderate (4-6) Previous Rx's Medication Instructions Recorded Last Taken Type ALBUTEROL NEB's [Proventil 0.083% 2.5 mg IH Q4HRT PRN nebu 11/08/19 Unknown Rx NEBS] Acetaminophen [Acetaminophen TAB] 650 mg PO Q4H PRN tablet 11/08/19 Unknown Rx Docusate Sodium [Colace CAP] 100 mg PO BID capsule 11/08/19 Unknown Rx levETIRAcetam [Keppra TAB] 1,000 mg PO BID #60 tab 11/08/19 Unknown Rx Abacavir [Ziagen TAB] 600 mg PO DAILY tablet 05/07/20 Unknown Rx Apixaban [Eliquis] 5 mg PO Q12HR #60 tablet 05/07/20 Unknown Rx Ascorbic Acid [Vitamin C] 500 mg PO BID tablet 05/07/20 Unknown Rx Aspirin [Aspirin BABY CHEW TAB] 81 mg PO QDAY tab.chew 05/07/20 Unknown Rx Darunavir [Prezista] 800 mg PO QDAY tablet 05/07/[address] [Depakote Dr] 500 mg PO BID tablet 05/07/20 Unknown Rx Dolutegravir [Tivicay] 50 mg PO QDAY tablet 05/07/20 Unknown Rx Emtricitabine [Emtriva] 200 mg PO QDAY capsule 05/07/20 Unknown Rx Escitalopram [Lexapro] 10 mg PO QDAY tablet 05/07/20 Unknown Rx Metoprolol [Lopressor TAB] 50 mg PO TID tablet 05/07/20 Unknown Rx Pantoprazole [Protonix TAB] 40 mg PO DAILY tablet 05/07/20 Unknown Rx Phenytoin [Dilantin] 100 mg PO Q8HR #90 capsule 05/07/20 Unknown Rx Ritonavir 100 mg PO QDAY tab 05/07/20 Unknown Rx amLODIPine 10 mg PO QDAY tablet 05/07/20 Unknown Rx dexAMETHasone [Decadron] 6 mg PO Q24HR tablet 05/07/20 Unknown Rx donepeziL [Aricept] 10 mg PO QHS tablet 05/07/20 Unknown Rx Laboratory Last Values WBC 3.9 K/mm3 (4.5-11.0) L 08/14/20 01:20 Hgb 14.5 gm/dl (11.8-15.2) 08/14/20 01:20 Hct 43.1 % (35.5-45.6) 08/14/20 01:20 Plt Count 178 K/mm3 (140-440) 08/14/20 01:20 Urine Mucus Few /HPF 08/14/20 Unknown Objective - Constitutional Vitals: Last Vital Signs Temp 98.6 F 08/14/20 21:58 Pulse 68 08/14/20 23:04 Resp 18 08/14/20 23:04 BP 125/80 08/14/20 21:58 Pulse Ox 96 08/14/20 23:04 - Labs Lab Results: Laboratory Results - last 24 hr 08/14/20 08/14/20 08/14/20 01:20 01:20 Unknown WBC 3.9 L RBC 4.80 Hgb 14.5 Hct 43.1 MCV 90 MCH 30 MCHC 34 RDW 13.9 Plt Count 178 [place] % (Auto) Certified Physical Therapist Assistant Add Manual Diff Complete Total Counted 100 Seg Neuts % (Manual) 38.0 L Lymphocytes % (Manual) 50.0 H Monocytes % (Manual) 12.0 H Nucleated RBC % Not Reportable Seg Neutrophils # Man 1.5 L Band Neutrophils # 0.0 Lymphocytes # (Manual) 2.0 Abs React Lymphs (Man) 0.0 Monocytes # (Manual) 0.5 Eosinophils # (Manual) 0.0 Basophils # (Manual) 0.0 Metamyelocytes # 0.0 Myelocytes # 0.0 Promyelocytes # 0.0 Blast Cells # 0.0 WBC Morphology Not Reportable Hypersegmented Neuts Not Reportable Hyposegmented Neuts Not Reportable Hypogranular Neuts Not Reportable Smudge Cells Not Reportable Toxic Granulation Not Reportable Toxic Vacuolation Not Reportable Dohle Bodies Not Reportable Pelger-Huet Anomaly Not Reportable Idalmis Rods Not Reportable Platelet Estimate Consistent w auto Clumped Platelets Not Reportable Plt Clumps, EDTA Not Reportable Large Platelets Not Reportable Giant Platelets Not Reportable Platelet Satelliting Not Reportable Plt Morphology Comment Not Reportable RBC Morphology Not Reportable Dimorphic RBCs Not Reportable Polychromasia Not Reportable Hypochromasia Not Reportable Poikilocytosis Not Reportable Anisocytosis Few Microcytosis Not Reportable Macrocytosis Not Reportable Spherocytes Not Reportable Pappenheimer Bodies Not Reportable Sickle Cells Not Reportable Target Cells Not Reportable Tear Drop Cells Not Reportable Ovalocytes Not Reportable Helmet Cells Not Reportable [place] Bodies Not Reportable [place] Rings Not Reportable [place] Cells Not Reportable Bite Cells Not Reportable Crenated Cell Not Reportable Elliptocytes Not Reportable Acanthocytes (Spur) Not Reportable Rouleaux Not Reportable Hemoglobin C Crystals Not Reportable Schistocytes Not Reportable Malaria parasites Not Reportable Brian Bodies Not Reportable Hem Pathologist Commnt No Sodium 134 L Potassium 4.0 Chloride 103.0 Carbon Dioxide 21 L Anion Gap 14 BUN 13 Creatinine 1.1 Glucose 100 Calcium 10.1 Urine Color Yellow Urine Turbidity Clear Urine pH 6.0 Ur Specific [place] 1.050 H Urine Protein 30 mg/dl Urine Glucose (UA) Neg Urine Ketones Neg Urine Blood Neg Urine Nitrite Neg Urine Bilirubin Neg Urine Urobilinogen < 2.0 Ur Leukocyte Esterase Neg Urine WBC (Auto) 1.0 Urine RBC (Auto) 2.0 U Epithel Cells (Auto) 1.0 Urine Mucus Few Medications & Allergies - Medications Allergies/Adverse Reactions: Allergies No Known Allergies Allergy (Unverified 06/19/19 14:20) Home Medications: Home Medications Medication Instructions Recorded Confirmed Last Taken Type ALBUTEROL NEB's [Proventil 0.083% 2.5 mg IH Q4HRT PRN nebu 11/08/19 Unknown Rx NEBS] Acetaminophen [Acetaminophen TAB] 650 mg PO Q4H PRN tablet 11/08/19 Unknown Rx Docusate Sodium [Colace CAP] 100 mg PO BID capsule 11/08/19 Unknown Rx levETIRAcetam [Keppra TAB] 1,000 mg PO BID #60 tab 11/08/19 Unknown Rx Abacavir [Ziagen TAB] 600 mg PO DAILY tablet 05/07/20 Unknown Rx Apixaban [Eliquis] 5 mg PO Q12HR #60 tablet 05/07/20 Unknown Rx Ascorbic Acid [Vitamin C] 500 mg PO BID tablet 05/07/20 Unknown Rx Aspirin [Aspirin BABY CHEW TAB] 81 mg PO QDAY tab.chew 05/07/20 Unknown Rx Darunavir [Prezista] 800 mg PO QDAY tablet 05/07/[address] [Depakote Dr] 500 mg PO BID tablet 05/07/20 Unknown Rx Dolutegravir [Tivicay] 50 mg PO QDAY tablet 05/07/20 Unknown Rx Emtricitabine [Emtriva] 200 mg PO QDAY capsule 05/07/20 Unknown Rx Escitalopram [Lexapro] 10 mg PO QDAY tablet 05/07/20 Unknown Rx Metoprolol [Lopressor TAB] 50 mg PO TID tablet 05/07/20 Unknown Rx Pantoprazole [Protonix TAB] 40 mg PO DAILY tablet 05/07/20 Unknown Rx Phenytoin [Dilantin] 100 mg PO Q8HR #90 capsule 05/07/20 Unknown Rx Ritonavir 100 mg PO QDAY tab 05/07/20 Unknown Rx amLODIPine 10 mg PO QDAY tablet 05/07/20 Unknown Rx dexAMETHasone [Decadron] 6 mg PO Q24HR tablet 05/07/20 Unknown Rx donepeziL [Aricept] 10 mg PO QHS tablet 05/07/20 Unknown Rx Active Medications: Generic Name Dose Route Start Last Admin Trade Name Freq PRN Reason Stop Dose Admin Abacavir Sulfate 600 mg 08/14/20 10:00 08/14/20 10:17 Abacavir 300 Mg Tab PO 600 mg DAILY PATTIE Administration Albuterol 2.5 mg 08/14/20 08:02 08/14/20 09:30 Albuterol 2.5 Mg/3 Ml Nebu IH 2.5 mg Q4HRT PRN Administration Shortness Of Breath Apixaban 5 mg 08/14/20 13:00 08/14/20 21:51 Apixaban 5 Mg Tab PO 5 mg Q12HR PATTIE Administration Protocol Aspirin 81 mg 08/14/20 13:00 08/14/20 16:07 Aspirin 81 Mg Tab Chew PO 81 mg QDAY PATTIE Administration Darunavir 800 mg 08/14/20 10:00 08/14/20 10:17 Darunavir 800 Mg Tab PO 800 mg QDAY PATTIE Administration Divalproex Sodium 500 mg 08/14/20 10:00 08/14/20 21:[address] 500 Mg Tab PO 500 mg BID PATTIE Administration Docusate Sodium 100 mg 08/14/20 10:00 08/14/20 21:53 Docusate Sodium 100 Mg Cap PO 100 mg BID PATTIE Administration Emtricitabine 200 mg 08/14/20 12:45 08/14/20 16:06 Emtricitabine 200 Mg Cap PO 200 mg QDAY PATTIE Administration Escitalopram Oxalate 10 mg 08/14/20 13:00 08/14/20 16:10 Escitalopram 10 Mg Tab PO 10 mg QDAY PATTIE Administration Piperacillin Sod/Tazobactam Sod 4.5 gm in 100 mls @ 200 mls/hr 08/14/20 14:00 08/14/20 21:51 Zosyn/Ns 4.5gm/100ml IV 200 mls/hr Q8HR PATTIE Administration Protocol Levetiracetam 1,000 mg 08/14/20 13:00 08/14/20 21:51 Levetiracetam 500 Mg Tab PO 1,000 mg BID PATTIE Administration Morphine Sulfate 2 mg 08/14/20 08:01 08/14/20 09:30 Morphine 2 Mg/1 Ml Inj IV 2 mg Q4H PRN Administration Pain, Moderate (4-6) Pantoprazole Sodium 40 mg 08/14/20 13:00 08/14/20 16:10 Pantoprazole 40 Mg Tab PO 40 mg DAILY PATTIE Administration Phenytoin 100 mg 08/14/20 14:00 08/14/20 21:51 Phenytoin 100 Mg Capsule.Er PO 100 mg Q8HR PATTIE Administration Pneumococcal Polyvalent Vaccine 0.5 ml 08/15/20 12:00 Pneumococcal 23 Valent 0.5 Ml Vial IM 08/15/20 12:01 .ONCE ONE Tramadol HCl 25 mg 08/14/20 12:00 Tramadol 50 Mg Tab PO Q8H PRN Pain, Moderate (4-6)
[2020-08-15] MEDS: PIPERACIL/TAZOBACTA 4.5/NS 100 4.5 GM/100 ML VIAL IV SCH ×3 (05:25→21:56)
[2020-08-15] MEDS: PHENYTOIN 100 MG CAPSULE.ER PO SCH ×4 (05:25→22:05)
--- NOTE | 2020-08-15 07:27 | Progress Note ---
Assessment and Plan Assessment and plan: Painful right inguinal hernia, with fluid stranding -General surgery consulted and recommend either outpatient elective hernia repair or if the patient is staying here will do hernia repair -We will held Eliquis for 48 hours -Patient is on IV Zosyn and IV morphine for pain control Altered mental status, metabolic encephalopathy, on top of dementia -CT head is negative -Neurology consulted, and recommend dementia work-up Iliac vein thrombosis, nonobstructive -Patient was on Eliquis -I have consulted hematology -We will start anticoagulation after patient is evaluated by surgery HIV/AIDS -Continue home medications CODE STATUS -DNR. Discussed with his sister Tami Zaragoza at [phone]. She said he does not want resuscitation -Sister stated if surgery is needed she is okay with the procedure. Disposition; continue inpatient care Management plan was discussed with his sister was in agreement with the plan of care. 08/15/2020 -She does have any abdominal pain morning. Confusion resolved. -Patient is admitted for right inguinal pain secondary to right inguinal hernia. Surgery consulted and will do either elective surgery or to do it here if the patient will stay in the hospital. We will hold Eliquis for 48 hours before the procedure -Confusion; neurology was consulted and recommended to do dementia work-up. EEG and MRI with and without contrast once the patient is stable. Continue home epileptic medications -Hematology oncology consulted and recommend to continue Eliquis -HIV AIDS; Home medications resumed -Management plan was discussed with his sister Tami Zaragoza at [phone] yesterday. Disposition; discharged to SNF when stable. Likely Monday History Interval history: Patient was seen and evaluated this morning Patient's abdominal pain resolved, patient was alert and communicative. Hospitalist Physical - Physical exam Narrative exam: Not in cardiopulmonary distress. The patient appeared well nourished and normally developed. Vital signs as documented. Head exam is unremarkable. No scleral icterus . Neck is without jugular venous distension, thyromegaly, or carotid bruits. Lungs are clear to auscultation. Cardiac exam reveals regular rate and Rhythm. Abdominal exam reveals; generalized abdominal tenderness pronounced at right low er quadrant. Extremities are nonedematous and both femoral and pedal pulses are normal. SPORTS ANNOUNCER: Patient was alert and communicative - Constitutional Vitals: Temp Pulse Resp BP Pulse Ox 98.3 F 60 20 140/95 99 08/15/20 04:47 08/15/20 04:47 08/15/20 04:47 08/15/20 04:47 08/15/20 04:47 Results - Labs CBC & Chem 7: 08/14/20 01:20 08/14/20 01:20 Labs: Laboratory Last Values WBC 3.9 K/mm3 (4.5-11.0) L 08/14/20 01:20 RBC 4.80 M/mm3 (3.65-5.03) 08/14/20 01:20 Hgb 14.5 gm/dl (11.8-15.2) 08/14/20 01:20 Hct 43.1 % (35.5-45.6) 08/14/20 01:20 MCV 90 fl (84-94) 08/14/20 01:20 MCH 30 pg (28-32) 08/14/20 01:20 MCHC 34 % (32-34) 08/14/20 01:20 RDW 13.9 % (13.2-15.2) 08/14/20 01:20 Plt Count 178 K/mm3 (140-440) 08/14/20 01:20 [place] % (Auto) Breeder Hen Service Technician 08/14/20 01:20 Add Manual Diff Complete 08/14/20 01:20 Total Counted 100 08/14/20 01:20 Seg Neuts % (Manual) 38.0 % (40.0-70.0) L 08/14/20 01:20 Lymphocytes % (Manual) 50.0 % (13.4-35.0) H 08/14/20 01:20 Monocytes % (Manual) 12.0 % (0.0-7.3) H 08/14/20 01:20 Nucleated RBC % Not Reportable 08/14/20 01:20 Seg Neutrophils # Man 1.5 K/mm3 (1.8-7.7) L 08/14/20 01:20 Band Neutrophils # 0.0 K/mm3 08/14/20 01:20 Lymphocytes # (Manual) 2.0 K/mm3 (1.2-5.4) 08/14/20 01:20 Abs React Lymphs (Man) 0.0 K/mm3 08/14/20 01:20 Monocytes # (Manual) 0.5 K/mm3 (0.0-0.8) 08/14/20 01:20 Eosinophils # (Manual) 0.0 K/mm3 (0.0-0.4) 08/14/20 01:20 Basophils # (Manual) 0.0 K/mm3 (0.0-0.1) 08/14/20 01:20 Metamyelocytes # 0.0 K/mm3 08/14/20 01:20 Myelocytes # 0.0 K/mm3 08/14/20 01:20 Promyelocytes # 0.0 K/mm3 08/14/20 01:20 Blast Cells # 0.0 K/mm3 08/14/20 01:20 WBC Morphology Not Reportable 08/14/20 01:20 Hypersegmented Neuts Not Reportable 08/14/20 01:20 Hyposegmented Neuts Not Reportable 08/14/20 01:20 Hypogranular Neuts Not Reportable 08/14/20 01:20 Smudge Cells Not Reportable 08/14/20 01:20 Toxic Granulation Not Reportable 08/14/20 01:20 Toxic Vacuolation Not Reportable 08/14/20 01:20 Dohle Bodies Not Reportable 08/14/20 01:20 Pelger-Huet Anomaly Not Reportable 08/14/20 01:20 Idalmis Rods Not Reportable 08/14/20 01:20 Platelet Estimate Consistent w auto 08/14/20 01:20 Clumped Platelets Not Reportable 08/14/20 01:20 Plt Clumps, EDTA Not Reportable 08/14/20 01:20 Large Platelets Not Reportable 08/14/20 01:20 Giant Platelets Not Reportable 08/14/20 01:20 Platelet Satelliting Not Reportable 08/14/20 01:20 Plt Morphology Comment Not Reportable 08/14/20 01:20 RBC Morphology Not Reportable 08/14/20 01:20 Dimorphic RBCs Not Reportable 08/14/20 01:20 Polychromasia Not Reportable 08/14/20 01:20 Hypochromasia Not Reportable 08/14/20 01:20 Poikilocytosis Not Reportable 08/14/20 01:20 Anisocytosis Few 08/14/20 01:20 Microcytosis Not Reportable 08/14/20 01:20 Macrocytosis Not Reportable 08/14/20 01:20 Spherocytes Not Reportable 08/14/20 01:20 Pappenheimer Bodies Not Reportable 08/14/20 01:20 Sickle Cells Not Reportable 08/14/20 01:20 Target Cells Not Reportable 08/14/20 01:20 Tear Drop Cells Not Reportable 08/14/20 01:20 Ovalocytes Not Reportable 08/14/20 01:20 Helmet Cells Not Reportable 08/14/20 01:20 Otoole-Balmorhea Bodies Not Reportable 08/14/20 01:20 Jackson Rings Not Reportable 08/14/20 01:20 Tamie Cells Not Reportable 08/14/20 01:20 Bite Cells Not Reportable 08/14/20 01:20 Crenated Cell Not Reportable 08/14/20 01:20 Elliptocytes Not Reportable 08/14/20 01:20 Acanthocytes (Spur) Not Reportable 08/14/20 01:20 Rouleaux Not Reportable 08/14/20 01:20 Hemoglobin C Crystals Not Reportable 08/14/20 01:20 Schistocytes Not Reportable 08/14/20 01:20 Malaria parasites Not Reportable 08/14/20 01:20 Brian Bodies Not Reportable 08/14/20 01:20 Hem Pathologist Commnt No 08/14/20 01:20 Sodium 134 mmol/L (137-145) L 08/14/20 01:20 Potassium 4.0 mmol/L (3.6-5.0) 08/14/20 01:20 Chloride 103.0 mmol/L (98-107) 08/14/20 01:20 Carbon Dioxide 21 mmol/L (22-30) L 08/14/20 01:20 Anion Gap 14 mmol/L 08/14/20 01:20 BUN 13 mg/dL (9-20) 08/14/20 01:20 Creatinine 1.1 mg/dL (0.8-1.3) 08/14/20 01:20 Estimated GFR > 60 ml/min 08/14/20 01:20 BUN/Creatinine Ratio 12 % 08/14/20 01:20 Glucose 100 mg/dL (75-100) 08/14/20 01:20 Calcium 10.1 mg/dL (8.4-10.2) 08/14/20 01:20 Urine Color Yellow (Yellow) 08/14/20 Unknown Urine Turbidity Clear (Clear) 08/14/20 Unknown Urine pH 6.0 (5.0-7.0) 08/14/20 Unknown Ur Specific [place] 1.050 (1.003-1.030) H 08/14/20 Unknown Urine Protein 30 mg/dl mg/dL (Negative) 08/14/20 Unknown Urine Glucose (UA) Neg mg/dL (Negative) 08/14/20 Unknown Urine Ketones Neg mg/dL (Negative) 08/14/20 Unknown Urine Blood Neg (Negative) 08/14/20 Unknown Urine Nitrite Neg (Negative) 08/14/20 Unknown Urine Bilirubin Neg (Negative) 08/14/20 Unknown Urine Urobilinogen < 2.0 mg/dL (<2.0) 08/14/20 Unknown Ur Leukocyte Esterase Neg (Negative) 08/14/20 Unknown Urine WBC (Auto) 1.0 /HPF (0.0-6.0) 08/14/20 Unknown Urine RBC (Auto) 2.0 /HPF (0.0-6.0) 08/14/20 Unknown U Epithel Cells (Auto) 1.0 /HPF (0-13.0) 08/14/20 Unknown Urine Mucus Few /HPF 08/14/20 Unknown Chang/IV: Voiding Method Urinal IV Catheter Type [left ac] Peripheral IV Active Medications - Current Medications Current Medications: Generic Name Dose Route Start Last Admin Trade Name Freq PRN Reason Stop Dose Admin Abacavir Sulfate 600 mg 08/14/20 10:00 08/14/20 10:17 Abacavir 300 Mg Tab PO 600 mg DAILY PATTIE Administration Albuterol 2.5 mg 08/14/20 08:02 08/14/20 09:30 Albuterol 2.5 Mg/3 Ml Nebu IH 2.5 mg Q4HRT PRN Administration Shortness Of Breath Apixaban 5 mg 08/14/20 13:00 08/14/20 21:51 Apixaban 5 Mg Tab PO 5 mg Q12HR PATTIE Administration Protocol Aspirin 81 mg 08/14/20 13:00 08/14/20 16:07 Aspirin 81 Mg Tab Chew PO 81 mg QDAY PATTIE Administration Darunavir 800 mg 08/14/20 10:00 08/14/20 10:17 Darunavir 800 Mg Tab PO 800 mg QDAY PATTIE Administration Divalproex Sodium 500 mg 08/14/20 10:00 08/14/20 21:[address] 500 Mg Tab PO 500 mg BID PATTIE Administration Docusate Sodium 100 mg 08/14/20 10:00 08/14/20 21:53 Docusate Sodium 100 Mg Cap PO 100 mg BID PATTIE Administration Emtricitabine 200 mg 08/14/20 12:45 08/14/20 16:06 Emtricitabine 200 Mg Cap PO 200 mg QDAY PATTIE Administration Escitalopram Oxalate 10 mg 08/14/20 13:00 08/14/20 16:10 Escitalopram 10 Mg Tab PO 10 mg QDAY PATTIE Administration Piperacillin Sod/Tazobactam Sod 4.5 gm in 100 mls @ 200 mls/hr 08/14/20 14:00 08/15/20 05:25 Zosyn/Ns 4.5gm/100ml IV 200 mls/hr Q8HR PATTIE Administration Protocol Levetiracetam 1,000 mg 08/14/20 13:00 08/14/20 21:51 Levetiracetam 500 Mg Tab PO 1,000 mg BID PATTIE Administration Morphine Sulfate 2 mg 08/14/20 08:01 08/14/20 09:30 Morphine 2 Mg/1 Ml Inj IV 2 mg Q4H PRN Administration Pain, Moderate (4-6) Pantoprazole Sodium 40 mg 08/14/20 13:00 08/14/20 16:10 Pantoprazole 40 Mg Tab PO 40 mg DAILY PATTIE Administration Phenytoin 100 mg 08/14/20 14:00 08/15/20 05:25 Phenytoin 100 Mg Capsule.Er PO 100 mg Q8HR PATTIE Administration Pneumococcal Polyvalent Vaccine 0.5 ml 08/15/20 12:00 Pneumococcal 23 Valent 0.5 Ml Vial IM 08/15/20 12:01 .ONCE ONE Tramadol HCl 25 mg 08/14/20 12:00 Tramadol 50 Mg Tab PO Q8H PRN Pain, Moderate (4-6)
[2020-08-15] MEDS: levETIRAcetam 500 MG TAB PO SCH ×3 (11:16→22:06)
[2020-08-15] MEDS: PANTOPRAZOLE 40 MG TAB PO SCH (11:17)
[2020-08-15] MEDS: DIVALPROEX DR 500 MG TAB PO SCH ×2 (11:17→21:56)
[2020-08-15] MEDS: ESCITALOPRAM 10 MG TAB PO SCH (11:17)
[2020-08-15] MEDS: APIXABAN 5 MG TAB PO SCH ×3 (11:17→22:06)
[2020-08-15] MEDS: ABACAVIR 300 MG TAB PO SCH (11:18)
[2020-08-15] MEDS: DARUNAVIR 800 MG TAB PO SCH (11:18)
[2020-08-15] MEDS: EMTRICITABINE 200 MG CAP PO SCH (11:18)
[2020-08-15] MEDS: DOCUSATE SODIUM 100 MG CAP PO SCH ×2 (11:18→21:56)
[2020-08-15] MEDS: DOLUTEGRAVIR 50 MG TAB PO SCH (11:18)
[2020-08-15] MEDS: ASPIRIN 81 MG TAB CHEW PO SCH (11:19)
[2020-08-15] MEDS ORDERED: PNEUMOCOCCAL 23 Valent 0.5 ML VIAL IM ONE (12:00)
[2020-08-16] MEDS: PIPERACIL/TAZOBACTA 4.5/NS 100 4.5 GM/100 ML VIAL IV SCH ×3 (05:22→21:32)
[2020-08-16] MEDS: PHENYTOIN 100 MG CAPSULE.ER PO SCH ×4 (05:22→21:33)
[2020-08-16] MEDS: APIXABAN 5 MG TAB PO SCH ×2 (12:46→21:33)
[2020-08-16] MEDS: PANTOPRAZOLE 40 MG TAB PO SCH (12:46)
[2020-08-16] MEDS: levETIRAcetam 500 MG TAB PO SCH ×2 (12:46→21:33)
[2020-08-16] MEDS: ASPIRIN 81 MG TAB CHEW PO SCH (12:47)
[2020-08-16] MEDS: DIVALPROEX DR 500 MG TAB PO SCH ×2 (12:47→21:34)
[2020-08-16] MEDS: ABACAVIR 300 MG TAB PO SCH (12:47)
[2020-08-16] MEDS: DOLUTEGRAVIR 50 MG TAB PO SCH (12:47)
[2020-08-16] MEDS: DARUNAVIR 800 MG TAB PO SCH (12:48)
[2020-08-16] MEDS: DOCUSATE SODIUM 100 MG CAP PO SCH ×3 (12:48→21:46)
[2020-08-16] MEDS: ESCITALOPRAM 10 MG TAB PO SCH (12:48)
[2020-08-16] MEDS: EMTRICITABINE 200 MG CAP PO SCH (12:48)
--- NOTE | 2020-08-16 15:25 | Progress Note ---
Assessment and Plan Assessment and Plan Painful right inguinal hernia, with fluid stranding -General surgery consulted and recommend either outpatient elective hernia repair or if the patient is staying here will do hernia repair -We will held Eliquis for 48 hours -Patient is on IV Zosyn and IV morphine for pain control -Possible surgery on Monday after 48 to 72 hours of stopping Eliquis and aspirin Metabolic encephalopathy, on top of dementia -CT head is negative -Neurology consult appreciated More alert and oriented Iliac vein thrombosis, non occlusive -Patient was on Eliquis -Hematology consult appreciated -Eliquis to be stopped for 48 to 72 hours Heparin 5000 subcu every 8 hours till surgery HIV/AIDS -Continue home medications CODE STATUS -DNR. Discussed with his sister Tami Zaragoza at [phone]. She said he does not want resuscitation -Sister stated if surgery is needed she is okay with the procedure. Disposition; continue inpatient care Management plan was discussed with his sister was in agreement with the plan of care. Discharge planning issues Patient for surgery on Monday after 48 to 72 hours of stopping Eliquis and aspirin Informed Dr. Watts Subjective Date of service: 08/16/20 Principal diagnosis: Obstructed right inguinal hernia Interval history: Patient complaining of right groin pain. Could not characterize the pain but he said it is very bad pain. 64-year-old -[place] male with past medical history significant for HIV, dementia, right inguinal hernia, DVT, ?Seizure presented to the emergency department with complaints of right inguinal pain. He states the pain has been persistent for months. He said he know he had right inguinal hernia and seen a doctor and told him he is going to do surgery. Patient is living in exiting half[facility]way. Patient is on HIV medication. Patient is on Eliquis. There is a report from half-way patient is confused. Per his sister he has dementia but alert and oriented. In the emergency department CT head was done and was normal. CT abdomen and pelvis was done and showed sigmoid colon enters in the right inguinal hernia and there is stranding there, no obstruction. 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 In the emergency department surgery consulted for the management of painful right inguinal hernia, hematology consulted for the management of iliac vein thrombosis despite on Eliquis, neurology was consulted for altered mental status. Note; patient is demented and also altered and is not able to give detailed history. History is obtained from chart review and his sister. Review of systems could not be obtained because the patient is altered. 08/15/2020 -He does not have any abdominal pain morning. Confusion resolved. -Patient is admitted for right inguinal pain secondary to right inguinal hernia. Surgery consulted and will do either elective surgery or to do it here if the patient will stay in the hospital. We will hold Eliquis for 48 hours before the procedure -Confusion; neurology was consulted and recommended to do dementia work-up. EEG and MRI with and without contrast once the patient is stable. Continue home epileptic medications -Hematology oncology consulted and recommend to continue Eliquis -HIV AIDS; Home medications resumed -Management plan was discussed with his sister Tami Zaragoza at [phone] yesterday. 08/16/2020 Patient is not in pain As hernia is chronic, easily reducible, and not obstructed, there is no urgent or emergent need for surgery. Surgery recommends repair of the right inguinal hernia as it is symptomatic but this can be done electively. If the patient remains in the hospital until next week, and is cleared by consultants, schedule surgery as an inpatient. Eliquis will need to be held for at least 48 hours prior to any surgical intervention. Otherwise, he may follow up in surgery clinic as outpatient. Disposition; discharged to SNF when stable. Likely Monday History Interval history: Patient was seen and evaluated this morning Patient's abdominal pain resolved, patient was alert and communicative. Objective - Constitutional Vitals: Vital Signs - 12hr 08/16/20 08/16/20 04:50 11:31 Temperature 98.6 F 98.2 F Pulse Rate 65 58 L Respiratory 20 20 Rate Blood Pressure 163/98 166/100 O2 Sat by Pulse 92 91 Oximetry General appearance: Present: no acute distress, well-nourished - EENT Eyes: PERRL, EOM intact ENT: hearing intact, clear oral mucosa Ears: bilateral: normal - Neck Neck: supple, normal ROM - Respiratory Respiratory effort: normal Respiratory: bilateral: CTA - Breasts Breasts: normal - Cardiovascular Heart rate: 78 Rhythm: regular Heart Sounds: Present: S1 & S2. Absent: gallop, rub Extremities: pulses intact, No edema, normal color, Full ROM - Gastrointestinal General gastrointestinal: Present: soft, non-tender, non-distended, normal bowel sounds, hernia (Right inguinal hernia: Reducible) - Genitourinary Male genitourinary: normal - Integumentary Integumentary: clear, warm, dry - Musculoskeletal Musculoskeletal: 1, strength equal bilaterally - Neurologic Neurologic: moves all extremities - Psychiatric Psychiatric: memory intact, appropriate mood/affect, intact judgment & insight - Labs CBC & Chem 7: 08/14/20 01:20 12 01:20
[2020-08-17] MEDS: PIPERACIL/TAZOBACTA 4.5/NS 100 4.5 GM/100 ML VIAL IV SCH ×3 (05:28→23:15)
[2020-08-17] MEDS: PHENYTOIN 100 MG CAPSULE.ER PO SCH ×3 (05:28→23:10)
[2020-08-17] MEDS: DARUNAVIR 800 MG TAB PO SCH (09:41)
[2020-08-17] MEDS: DOCUSATE SODIUM 100 MG CAP PO SCH ×2 (09:41→23:09)
[2020-08-17] MEDS: levETIRAcetam 500 MG TAB PO SCH ×2 (09:41→23:10)
[2020-08-17] MEDS: DIVALPROEX DR 500 MG TAB PO SCH ×2 (09:41→23:10)
[2020-08-17] MEDS: DOLUTEGRAVIR 50 MG TAB PO SCH (09:41)
[2020-08-17] MEDS: ESCITALOPRAM 10 MG TAB PO SCH (09:41)
[2020-08-17] MEDS: ABACAVIR 300 MG TAB PO SCH (09:42)
[2020-08-17] MEDS: EMTRICITABINE 200 MG CAP PO SCH (09:42)
[2020-08-17] MEDS: PANTOPRAZOLE 40 MG TAB PO SCH (09:42)
--- NOTE | 2020-08-17 10:08 | Progress Note ---
Assessment and Plan 64-year-old male with chronic right inguinal hernia containing nonobstructed colon COVID negative Plan: 1. Diet as tolerated 2. prn pain control 3. neuro and hematology recs reviewed 4. Hernia is chronic, reducible, and not obstructed, there is no urgent or emergent need for surgery. Discussed with Dr. Hagan today. As patient is symptomatic, patient will remain in hospital until hernia is repaired. The next available date to add patient to OR schedule is @1330. Will proceed with hernia repair on this date. I discussed all risks, benefits, alternatives to surgery with patient and questions answered. Consent obtained. If an earlier date opens up in OR, will move patient up. 5. Last dose of eliquis 08/16 - continue to hold for surgery Called patient' sister Julissa Zaragoza @ [phone] and received a message that line is not receiving calls at this time. Thank you for this consultation. Please call with any questions or concerns. Evaluation and treatment of this patient was during the time of the national and state emergency arising from COVID19 coronavirus pandemic. Treatment and procedures performed meet the current and available best practice and guidelines for patient during the COVID pandemic. Subjective Date of service: 08/17/20 Narrative: Pt seen and examined. No acute complaints. Pain in right groin is only present when patient is moving. No pain when laying in bed. Patient fully dressed. No n/v. Tolerating diet. Objective Vital Signs - 12hr 08/16/20 23:00 Pulse Rate [ 78 Right Radial] Respiratory 18 Rate O2 Sat by Pulse 92 Oximetry - General physical appearance Narrative Exam: Gen: AAOx3. NAD CV:S1, S2+ Resp: even and unlabored Abd: reducible right inguinal hernia. NO r/r/g Ext: no c/c/e - Labs 08/14/20 01:20 08/14/20 01:20
--- NOTE | 2020-08-17 23:13 | Progress Note ---
Assessment and Plan Assessment and Plan Painful right inguinal hernia, with fluid stranding -General surgery consulted and recommend either outpatient elective hernia repair or if the patient is staying here will do hernia repair -We will held Eliquis for 48 hours -Patient is on IV Zosyn and IV morphine for pain control -Possible surgery on Monday after 48 to 72 hours of stopping Eliquis and aspirin Metabolic encephalopathy, on top of dementia -CT head is negative -Neurology consult appreciated More alert and oriented Iliac vein thrombosis, non occlusive -Patient was on Eliquis -Hematology consult appreciated -Eliquis to be stopped for 48 to 72 hours Heparin 5000 subcu every 8 hours till surgery HIV/AIDS -Continue home medications CODE STATUS -DNR. Discussed with his sister Tami Zaragoza at [phone]. She said he does not want resuscitation -Sister stated if surgery is needed she is okay with the procedure. Disposition; continue inpatient care Management plan was discussed with his sister was in agreement with the plan of care. Discharge planning issues Patient for surgery on after 48 to 72 hours of stopping Eliquis and aspirin Subjective Date of service: 08/17/20 Principal diagnosis: Obstructed right inguinal hernia Interval history: Patient complaining of right groin pain. Could not characterize the pain but he said it is very bad pain. 64-year-old -[place] male with past medical history significant for HIV, dementia, right inguinal hernia, DVT, ?Seizure presented to the emergency department with complaints of right inguinal pain. He states the pain has been persistent for months. He said he know he had right inguinal hernia and seen a doctor and told him he is going to do surgery. Patient is living in exiting group home. Patient is on HIV medication. Patient is on Eliquis. There is a report from group home patient is confused. Per his sister he has dementia but alert and oriented. In the emergency department CT head was done and was normal. CT abdomen and pelvis was done and showed sigmoid colon enters in the right inguinal hernia and there is stranding there, no obstruction. 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 In the emergency department surgery consulted for the management of painful right inguinal hernia, hematology consulted for the management of iliac vein thrombosis despite on Eliquis, neurology was consulted for altered mental status. Note; patient is demented and also altered and is not able to give detailed history. History is obtained from chart review and his sister. Review of systems could not be obtained because the patient is altered. 08/15/2020 -He does not have any abdominal pain morning. Confusion resolved. -Patient is admitted for right inguinal pain secondary to right inguinal hernia. Surgery consulted and will do either elective surgery or to do it here if the patient will stay in the hospital. We will hold Eliquis for 48 hours before the procedure -Confusion; neurology was consulted and recommended to do dementia work-up. EEG and MRI with and without contrast once the patient is stable. Continue home epileptic medications -Hematology oncology consulted and recommend to continue Eliquis -HIV AIDS; Home medications resumed -Management plan was discussed with his sister Tami Zaragoza at [phone] yesterday. 08/16/2020 Patient is not in pain As hernia is chronic, easily reducible, and not obstructed, there is no urgent or emergent need for surgery. Surgery recommends repair of the right inguinal hernia as it is symptomatic but this can be done electively. If the patient r emains in the hospital until next week, and is cleared by consultants, schedule surgery as an inpatient. Eliquis will need to be held for at least 48 hours prior to any surgical intervention. Otherwise, he may follow up in surgery clinic as outpatient. 08/17/20 Patient for Inguinal Hernia repair on 08/20/20 Stopped Eliquis and ASA On Sq Heparin Eager to get surgery done and go home Objective - Constitutional Vitals: Vital Signs - 12hr 08/17/20 08/17/20 11:38 16:29 Temperature 97.6 F 98.0 F Pulse Rate 64 60 Respiratory 19 19 Rate Blood Pressure 146/98 146/99 O2 Sat by Pulse 95 96 Oximetry General appearance: Present: no acute distress, well-nourished - EENT Eyes: PERRL, EOM intact ENT: hearing intact, clear oral mucosa Ears: bilateral: normal - Neck Neck: supple, normal ROM - Respiratory Respiratory effort: normal Respiratory: bilateral: CTA - Breasts Breasts: normal - Cardiovascular Heart rate: 78 Rhythm: regular Heart Sounds: Present: S1 & S2. Absent: gallop, rub Extremities: pulses intact, No edema, normal color, Full ROM - Gastrointestinal General gastrointestinal: Present: soft, non-tender, non-distended, normal bowel sounds - Genitourinary Male genitourinary: normal - Integumentary Integumentary: clear, warm, dry - Musculoskeletal Musculoskeletal: 1, strength equal bilaterally - Neurologic Neurologic: moves all extremities - Psychiatric Psychiatric: memory intact, appropriate mood/affect, intact judgment & insight - Labs CBC & Chem 7: 08/14/20 01:20 08/14/20 01:20
[2020-08-18] MEDS ORDERED: hydrALAZINE 20 MG/1 ML INJ IV ONE (00:20)
[2020-08-18 02:29] LABS: BUN/Creatinine Ratio 8; Blood Urea Nitrogen 10 mg/dL (9-20); Calcium 10.7 mg/dL (8.4-10.2); Hemolysis Index 17
[2020-08-18 02:30] LABS: Hematocrit 47.3 % (35.5-45.6); Hemoglobin 15.6 gm/dl (11.8-15.2); Mean Corpuscular HGB Conc 33 % (32-34); Mean Corpuscular Volume 90 fl (84-94); Platelet Count 180 K/mm3 (140-440); Red Blood Count 5.24 M/mm3 (3.65-5.03); Red Cell Distribution Width 14.3 % (13.2-15.2)
[2020-08-18] MEDS: PHENYTOIN 100 MG CAPSULE.ER PO SCH ×3 (05:19→21:54)
[2020-08-18] MEDS: PIPERACIL/TAZOBACTA 4.5/NS 100 4.5 GM/100 ML VIAL IV SCH ×3 (05:19→21:55)
[2020-08-18 05:41] LABS: Total Cells Counted 100
[2020-08-18 05:43] LABS: Anisocytosis Few; Platelet Estimate Consistent w Auto; Schistocytes Few
--- NOTE | 2020-08-18 09:19 | Hem/Onc Progress Note ---
Subjective Date of service: 08/17/20 Interval history: heme f/u televisit by sheri 64yo disabled AA man with AIDS, h/o DVT, presumed dementia he was on eliquis when he was admissed admitted for R groin pain, found to have incarcerated hernia and R CFV nonocclusive DVT planning to have R hernia repair, but now dressed as though he were discharged, asking to leave rachel he says he will be ok to take daily pill to prevent clotting he seems like he barely understands hernia repair plan televisit EXAM: not oriented to situation walking around, more comfortable than he was before DATA REVIEWED BELOW IMPRESSION: recent R inguinal pain likely due to incarcerated inguinal hernia nonocclusive-appearing clot near R CFV this clot is probably chronic; not sure whether he "failed" eliquis RECOMMEND: eliquis and aspirin held for possible R inguinal hernia repair surgery resume eliquis (5mg bid) after surgery (can be night of surgery, 4-6 hrs after surgery is done) aware that some HIV meds pose drug-drug interaction with DOAC, but his meds do not pose a problem consider changing to xarelto 20mg daily instead at time of discharge (once daily maybe easier) can he come off aspirin altogether? awaiting Hgb electrophoresis Active Medications Abacavir Sulfate (Abacavir 300 Mg Tab) 600 mg PO DAILY [facility] Last Admin: 08/17/20 09:42 Dose: 600 mg Documented by: Albuterol (Albuterol 2.5 Mg/3 Ml Nebu) 2.5 mg IH Q4HRT PRN PRN Reason: Shortness Of Breath Last Admin: 08/14/20 09:30 Dose: 2.5 mg Documented by: Darunavir (Darunavir 800 Mg Tab) 800 mg PO QDAY [facility] Last Admin: 08/17/20 09:41 Dose: 800 mg Documented by: Divalproex Sodium (Divalproex Dr 500 Mg Tab) 500 mg PO BID [facility] Last Admin: 08/17/20 23:10 Dose: 500 mg Documented by: Docusate Sodium (Docusate Sodium 100 Mg Cap) 100 mg PO BID [facility] Last Admin: 08/17/20 23:09 Dose: Not Given Documented by: Emtricitabine (Emtricitabine 200 Mg Cap) 200 mg PO QDAY [facility] Last Admin: 08/17/20 09:42 Dose: 200 mg Documented by: Escitalopram Oxalate (Escitalopram 10 Mg Tab) 10 mg PO QDAY [facility] Last Admin: 08/17/20 09:41 Dose: 10 mg Documented by: Heparin Sodium (Porcine) (Heparin 5,000 Unit/1 Ml Vial) 5,000 unit SUB-Q Q12HR PATTIE Piperacillin Sod/Tazobactam Sod (Zosyn/Ns 4.5gm/100ml) 4.5 gm in 100 mls @ 200 mls/hr IV Q8HR PATTIE; Protocol Last Admin: 08/18/20 05:19 Dose: 200 mls/hr Documented by: Levetiracetam (Levetiracetam 500 Mg Tab) 1,000 mg PO BID [facility] Last Admin: 08/17/20 23:10 Dose: 1,000 mg Documented by: Morphine Sulfate (Morphine 2 Mg/1 Ml Inj) 2 mg IV Q4H PRN PRN Reason: Pain, Moderate (4-6) Last Admin: 08/14/20 09:30 Dose: 2 mg Documented by: Pantoprazole Sodium (Pantoprazole 40 Mg Tab) 40 mg PO DAILY [facility] Last Admin: 08/17/20 09:42 Dose: 40 mg Documented by: Phenytoin (Phenytoin 100 Mg Capsule.Er) 100 mg PO Q8HR PATTIE Last Admin: 08/18/20 05:19 Dose: 100 mg Documented by: Tramadol HCl (Tramadol 50 Mg Tab) 25 mg PO Q8H PRN PRN Reason: Pain, Moderate (4-6) Laboratory Last Values WBC 4.8 K/mm3 (4.5-11.0) 08/18/20 00:54 Hct 47.3 % (35.5-45.6) H 08/18/20 00:54 Plt Count 180 K/mm3 (140-440) 08/18/20 00:54 Creatinine 1.2 mg/dL (0.8-1.3) 08/18/20 00:54 Coronavirus (PCR) Negative (Negative) 08/17/20 Unknown Objective - Constitutional Vitals: Last Vital Signs Temp 98.2 F 08/18/20 05:15 Pulse 93 H 08/18/20 05:15 Resp 17 08/18/20 05:15 BP 146/108 08/18/20 05:15 Pulse Ox 99 08/18/20 05:15 - Labs Lab Results: Laboratory Results - last 24 hr 08/17/20 08/18/20 08/18/20 Unknown 00:54 00:54 WBC RBC Hgb Hct MCV MCH MCHC RDW Plt Count Lymph % (Auto) Add Manual Diff Total Counted Seg Neutrophils % Seg Neuts % (Manual) Lymphocytes % (Manual) Monocytes % (Manual) Eosinophils % (Manual) Nucleated RBC % Seg Neutrophils # Man Band Neutrophils # Lymphocytes # (Manual) Abs React Lymphs (Man) Monocytes # (Manual) Eosinophils # (Manual) Basophils # (Manual) Metamyelocytes # Myelocytes # Promyelocytes # Blast Cells # WBC Morphology Hypersegmented Neuts Hyposegmented Neuts Hypogranular Neuts Smudge Cells Toxic Granulation Toxic Vacuolation Dohle Bodies Pelger-Huet Anomaly Idalmis Rods Platelet Estimate Clumped Platelets Plt Clumps, EDTA Large Platelets Giant Platelets Platelet Satelliting Plt Morphology Comment RBC Morphology Dimorphic RBCs Polychromasia Hypochromasia Poikilocytosis Anisocytosis Microcytosis Macrocytosis Spherocytes Pappenheimer Bodies Sickle Cells Target Cells Tear Drop Cells Ovalocytes Helmet Cells [place] Bodies [place] Rings [place] Cells Bite Cells Crenated Cell Elliptocytes Acanthocytes (Spur) Rouleaux Hemoglobin C Crystals Schistocytes Malaria parasites Brian Bodies Hem Pathologist Commnt Sodium Potassium Chloride Carbon Dioxide Anion Gap BUN Creatinine Estimated GFR BUN/Creatinine Ratio Glucose Calcium Prealbumin Vitamin B12 643.3 Folate TSH 1.190 Coronavirus (PCR) Negative 08/18/20 08/18/20 08/18/20 00:54 00:54 00:54 WBC 4.8 RBC 5.24 H Hgb 15.6 H Hct 47.3 H MCV 90 MCH 30 MCHC 33 RDW 14.3 Plt Count 180 Lymph % (Auto) [place] Add Manual Diff Complete Total Counted 100 Seg Neutrophils % [place] Seg Neuts % (Manual) 32.0 L Lymphocytes % (Manual) 60.0 H Monocytes % (Manual) 6.0 Eosinophils % (Manual) 2.0 Nucleated RBC % Not Reportable Seg Neutrophils # Man 1.5 L Band Neutrophils # 0.0 Lymphocytes # (Manual) 2.9 Abs React Lymphs (Man) 0.0 Monocytes # (Manual) 0.3 Eosinophils # (Manual) 0.1 Basophils # (Manual) 0.0 Metamyelocytes # 0.0 Myelocytes # 0.0 Promyelocytes # 0.0 Blast Cells # 0.0 WBC Morphology Not Reportable Hypersegmented Neuts Not Reportable Hyposegmented Neuts Not Reportable Hypogranular Neuts Not Reportable Smudge Cells Not Reportable Toxic Granulation Not Reportable Toxic Vacuolation Not Reportable Dohle Bodies Not Reportable Pelger-Huet Anomaly Not Reportable Idalmis Rods Not Reportable Platelet Estimate Consistent w auto Clumped Platelets Not Reportable Plt Clumps, EDTA Not Reportable Large Platelets Not Reportable Giant Platelets Not Reportable Platelet Satelliting Not Reportable Plt Morphology Comment Not Reportable RBC Morphology Not Reportable Dimorphic RBCs Not Reportable Polychromasia Not Reportable Hypochromasia Not Reportable Poikilocytosis Not Reportable Anisocytosis Few Microcytosis Not Reportable Macrocytosis Not Reportable Spherocytes Not Reportable Pappenheimer Bodies Not Reportable Sickle Cells Not Reportable Target Cells Not Reportable Tear Drop Cells Not Reportable Ovalocytes Not Reportable Helmet Cells Not Reportable [place] Bodies Not Reportable [place] Rings Not Reportable Tamie Cells Not Reportable Bite Cells Not Reportable Crenated Cell Not Reportable Elliptocytes Not Reportable Acanthocytes (Spur) Not Reportable Rouleaux Not Reportable Hemoglobin C Crystals Not Reportable Schistocytes Few Malaria parasites Not Reportable Brian Bodies Not Reportable Hem Pathologist Commnt No Sodium Potassium Chloride Carbon Dioxide Anion Gap BUN Creatinine Estimated GFR BUN/Creatinine Ratio Glucose Calcium Prealbumin 0.248 Vitamin B12 Folate 20 TSH Coronavirus (PCR) 08/18/20 00:54 WBC RBC Hgb Hct MCV MCH MCHC RDW Plt Count Lymph % (Auto) Add Manual Diff Total Counted Seg Neutrophils % Seg Neuts % (Manual) Lymphocytes % (Manual) Monocytes % (Manual) Eosinophils % (Manual) Nucleated RBC % Seg Neutrophils # Man Band Neutrophils # Lymphocytes # (Manual) Abs React Lymphs (Man) Monocytes # (Manual) Eosinophils # (Manual) Basophils # (Manual) Metamyelocytes # Myelocytes # Promyelocytes # Blast Cells # WBC Morphology Hypersegmented Neuts Hyposegmented Neuts Hypogranular Neuts Smudge Cells Toxic Granulation Toxic Vacuolation Dohle Bodies Pelger-Huet Anomaly Idalmis Rods Platelet Estimate Clumped Platelets Plt Clumps, EDTA Large Platelets Giant Platelets Platelet Satelliting Plt Morphology Comment RBC Morphology Dimorphic RBCs Polychromasia Hypochromasia Poikilocytosis Anisocytosis Microcytosis Macrocytosis Spherocytes Pappenheimer Bodies Sickle Cells Target Cells Tear Drop Cells Ovalocytes Helmet Cells [place] Bodies [place] Rings [place] Cells Bite Cells Crenated Cell Elliptocytes Acanthocytes (Spur) Rouleaux Hemoglobin C Crystals Schistocytes Malaria parasites Brian Bodies Hem Pathologist Commnt Sodium 138 Potassium 3.4 L Chloride 106.0 Carbon Dioxide 18 L Anion Gap 17 BUN 10 Creatinine 1.2 Estimated GFR > 60 BUN/Creatinine Ratio 8 Glucose 93 Calcium 10.7 H Prealbumin Vitamin B12 Folate TSH Coronavirus (PCR) Medications & Allergies - Medications Allergies/Adverse Reactions: Allergies No Known Allergies Allergy (Unverified 06/19/19 14:20) Home Medications: Home Medications Medication Instructions Recorded Confirmed Last Taken Type ALBUTEROL NEB's [Proventil 0.083% 2.5 mg IH Q4HRT PRN nebu 11/08/19 08/17/20 Unknown Rx NEBS] Acetaminophen [Acetaminophen TAB] 650 mg PO Q4H PRN tablet 11/08/19 08/17/20 Unknown Rx Docusate Sodium [Colace CAP] 100 mg PO BID capsule 11/08/19 08/17/20 Unknown Rx levETIRAcetam [Keppra TAB] 1,000 mg PO BID #60 tab 11/08/19 08/17/20 Unknown Rx Abacavir [Ziagen TAB] 600 mg PO DAILY tablet 05/07/20 08/17/20 Unknown Rx Apixaban [Eliquis] 5 mg PO Q12HR #60 tablet 05/07/20 08/17/20 Unknown Rx Ascorbic Acid [Vitamin C] 500 mg PO BID tablet 05/07/20 08/17/20 Unknown Rx Aspirin [Aspirin BABY CHEW TAB] 81 mg PO QDAY tab.chew 05/07/20 08/17/20 Unknown Rx Darunavir [Prezista] 800 mg PO QDAY tablet 05/07/20 08/17/[address] [Depakote Dr] 500 mg PO BID tablet 05/07/20 08/17/20 Unknown Rx Dolutegravir [Tivicay] 50 mg PO QDAY tablet 05/07/20 08/17/20 Unknown Rx Emtricitabine [Emtriva] 200 mg PO QDAY capsule 05/07/20 08/17/20 Unknown Rx Escitalopram [Lexapro] 10 mg PO QDAY tablet 05/07/20 08/17/20 Unknown Rx Metoprolol [Lopressor TAB] 50 mg PO TID tablet 05/07/20 08/17/20 Unknown Rx Pantoprazole [Protonix TAB] 40 mg PO DAILY tablet 05/07/20 08/17/20 Unknown Rx Phenytoin [Dilantin] 100 mg PO Q8HR #90 capsule 05/07/20 08/17/20 Unknown Rx Ritonavir 100 mg PO QDAY tab 05/07/20 08/17/20 Unknown Rx amLODIPine 10 mg PO QDAY tablet 05/07/20 08/17/20 Unknown Rx dexAMETHasone [Decadron] 6 mg PO Q24HR tablet 05/07/20 08/17/20 Unknown Rx donepeziL [Aricept] 10 mg PO QHS tablet 05/07/20 08/17/20 Unknown Rx Active Medications: Generic Name Dose Route Start Last Admin Trade Name Freq PRN Reason Stop Dose Admin Abacavir Sulfate 600 mg 08/14/20 10:00 08/17/20 09:42 Abacavir 300 Mg Tab PO 600 mg DAILY PATTIE Administration Albuterol 2.5 mg 08/14/20 08:02 08/14/20 09:30 Albuterol 2.5 Mg/3 Ml Nebu IH 2.5 mg Q4HRT PRN Administration Shortness Of Breath Darunavir 800 mg 08/14/20 10:00 08/17/20 09:41 Darunavir 800 Mg Tab PO 800 mg QDAY PATTIE Administration Divalproex Sodium 500 mg 08/14/20 10:00 08/17/20 23:[address] 500 Mg Tab PO 500 mg BID PATTIE Administration Docusate Sodium 100 mg 08/14/20 10:00 08/17/20 23:09 Docusate Sodium 100 Mg Cap PO Not Given BID PATTIE Emtricitabine 200 mg 08/14/20 12:45 08/17/20 09:42 Emtricitabine 200 Mg Cap PO 200 mg QDAY PATTIE Administration Escitalopram Oxalate 10 mg 08/14/20 13:00 08/17/20 09:41 Escitalopram 10 Mg Tab PO 10 mg QDAY PATTIE Administration Heparin Sodium (Porcine) 5,000 unit 08/18/20 10:00 Heparin 5,000 Unit/1 Ml Vial SUB-Q Q12HR PATTIE Piperacillin Sod/Tazobactam Sod 4.5 gm in 100 mls @ 200 mls/hr 08/14/20 14:00 08/18/20 05:19 Zosyn/Ns 4.5gm/100ml IV 200 mls/hr Q8HR PATTIE Administration Protocol Levetiracetam 1,000 mg 08/14/20 13:00 08/17/20 23:10 Levetiracetam 500 Mg Tab PO 1,000 mg BID PATTIE Administration Morphine Sulfate 2 mg 08/14/20 08:01 08/14/20 09:30 Morphine 2 Mg/1 Ml Inj IV 2 mg Q4H PRN Administration Pain, Moderate (4-6) Pantoprazole Sodium 40 mg 08/14/20 13:00 08/17/20 09:42 Pantoprazole 40 Mg Tab PO 40 mg DAILY PATTIE Administration Phenytoin 100 mg 08/14/20 14:00 08/18/20 05:19 Phenytoin 100 Mg Capsule.Er PO 100 mg Q8HR PATTIE Administration Tramadol HCl 25 mg 08/14/20 12:00 Tramadol 50 Mg Tab PO Q8H PRN Pain, Moderate (4-6)
--- NOTE | 2020-08-18 14:52 | Event Note ---
Date: 08/18/20 Spoke with patient's sister Julissa Zaragoza. Plans for inguinal hernia repair discussed with her. All risks, benefits, and alternatives to the procedure discussed with her in detail. All questions answered. She states that although patient can make his own medical decisions, she is his health care proxy and can also make medical decision for him. She is agreeable to proceed with surgery and is giving consent - will add to consent already given by patient. Surgery scheduled for as this is the earliest date OR has available. Will place preop orders tomorrow.
--- NOTE | 2020-08-18 16:50 | Progress Note ---
Assessment and Plan Assessment and Plan Painful right inguinal hernia, with fluid stranding -General surgery consulted and recommend either outpatient elective hernia repair or if the patient is staying here will do hernia repair -We will held Eliquis for 48 hours -Patient is on IV Zosyn and IV morphine for pain control -Possible surgery on , 08/20/2020 Metabolic encephalopathy, on top of dementia -Resolved Iliac vein thrombosis, non occlusive -Patient was on Eliquis -Hematology consult appreciated -Eliquis to be stopped for 48 to 72 hours Heparin 5000 subcu every 8 hours till surgery HIV/AIDS -Continue home medications CODE STATUS -DNR. Discussed with his sister Tami Zaragoza at [phone]. She said he does not want resuscitation -Sister stated if surgery is needed she is okay with the procedure. Disposition; continue inpatient care Management plan was discussed with his sister was in agreement with the plan of care. Discharge planning issues Patient for surgery on after 48 to 72 hours of stopping Eliquis and aspirin Patient to be discharged on 08/21/2020 Subjective Date of service: 08/18/20 Principal diagnosis: Obstructed right inguinal hernia Interval history: Patient complaining of right groin pain. Could not characterize the pain but he said it is very bad pain. 64-year-old -[place] male with past medical history significant for HIV, dementia, right inguinal hernia, DVT, ?Seizure presented to the emergency department with complaints of right inguinal pain. He states the pain has been persistent for months. He said he know he had right inguinal hernia and seen a doctor and told him he is going to do surgery. Patient is living in exiting longterm. Patient is on HIV medication. Patient is on Eliquis. There is a report from longterm patient is confused. Per his sister he has dementia but alert and oriented. In the emergency department CT head was done and was normal. CT abdomen and pelvis was done and showed sigmoid colon enters in the right inguinal hernia and there is stranding there, no obstruction. 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 In the emergency department surgery consulted for the management of painful right inguinal hernia, hematology consulted for the management of iliac vein thrombosis despite on Eliquis, neurology was consulted for altered mental status. Note; patient is demented and also altered and is not able to give detailed history. History is obtained from chart review and his sister. Review of systems could not be obtained because the patient is altered. 08/15/2020 -He does not have any abdominal pain morning. Confusion resolved. -Patient is admitted for right inguinal pain secondary to right inguinal hernia. Surgery consulted and will do either elective surgery or to do it here if the patient will stay in the hospital. We will hold Eliquis for 48 hours before the procedure -Confusion; neurology was consulted and recommended to do dementia work-up. EEG and MRI with and without contrast once the patient is stable. Continue home epileptic medications -Hematology oncology consulted and recommend to continue Eliquis -HIV AIDS; Home medications resumed -Management plan was discussed with his sister Tami Zaragoza at [phone] yesterday. 08/16/2020 Patient is not in pain As hernia is chronic, easily reducible, and not obstructed, there is no urgent or emergent need for surgery. Surgery recommends repair of the right inguinal hernia as it is symptomatic but this can be done electively. If the patient remains in the hospital until next week, and is cleared by consultants, schedule surgery as an inpatient. Eliquis will need to be held for at least 48 hours prior to any surgical intervention. Otherwise, he may follow up in surgery clinic as outpatient. 08/17/20 Patient for Inguinal Hernia repair on 08/20/20 Stopped Eliquis and ASA On Sq Heparin Eager to get surgery done and go home 08/18/2020 Hematology consult appreciated Patient for inguinal hernia surgery on 08/20/2020 Otherwise doing well On subcu heparin Objective - Constitutional Vitals: Vital Signs - 12hr 08/18/20 08/18/20 05:15 12:03 Temperature 98.2 F 97.6 F Pulse Rate 93 H 97 H Respiratory 17 19 Rate Blood Pressure 146/108 145/118 O2 Sat by Pulse 99 96 Oximetry General appearance: Present: no acute distress, well-nourished - EENT Eyes: PERRL, EOM intact ENT: hearing intact, clear oral mucosa Ears: bilateral: normal - Neck Neck: supple, normal ROM - Respiratory Respiratory effort: normal Respiratory: bilateral: CTA - Breasts Breasts: normal - Cardiovascular Heart rate: 78 Rhythm: regular Heart Sounds: Present: S1 & S2. Absent: gallop, rub Extremities: pulses intact, No edema, normal color, Full ROM - Gastrointestinal General gastrointestinal: Present: soft, non-tender, non-distended, normal bowel sounds - Genitourinary Male genitourinary: normal - Integumentary Integumentary: clear, warm, dry - Musculoskeletal Musculoskeletal: 1, strength equal bilaterally - Neurologic Neurologic: moves all extremities - Psychiatric Psychiatric: memory intact, appropriate mood/affect, intact judgment & insight - Labs CBC & Chem 7: 08/18/20 00:54 08/18/20 00:54 Labs: Abnormal lab results 08/18/20 08/18/20 Range/Units 00:54 00:54 RBC 5.24 H (3.65-5.03) M/mm3 Hgb 15.6 H (11.8-15.2) gm/dl Hct 47.3 H (35.5-45.6) % Seg Neuts % (Manual) 32.0 L (40.0-70.0) % Lymphocytes % (Manual) 60.0 H (13.4-35.0) % Seg Neutrophils # Man 1.5 L (1.8-7.7) K/mm3 Potassium 3.4 L (3.6-5.0) mmol/L Carbon Dioxide 18 L (22-30) mmol/L Calcium 10.7 H (8.4-10.2) mg/dL
[2020-08-18] MEDS: ABACAVIR 300 MG TAB PO SCH (17:38)
[2020-08-18] MEDS: PANTOPRAZOLE 40 MG TAB PO SCH (17:38)
[2020-08-18] MEDS: levETIRAcetam 500 MG TAB PO SCH ×3 (17:38→22:46)
[2020-08-18] MEDS: EMTRICITABINE 200 MG CAP PO SCH (17:39)
[2020-08-18] MEDS: DOLUTEGRAVIR 50 MG TAB PO SCH (17:39)
[2020-08-18] MEDS: DARUNAVIR 800 MG TAB PO SCH (17:39)
[2020-08-18] MEDS: ESCITALOPRAM 10 MG TAB PO SCH (17:40)
[2020-08-18] MEDS: DIVALPROEX DR 500 MG TAB PO SCH ×2 (17:40→21:54)
[2020-08-18] MEDS: HEPARIN 5,000 UNIT/1 ML VIAL SUB-Q SCH ×2 (17:49→21:54)
[2020-08-18] MEDS: DOCUSATE SODIUM 100 MG CAP PO SCH ×2 (17:50→21:54)
[2020-08-19] MEDS: PIPERACIL/TAZOBACTA 4.5/NS 100 4.5 GM/100 ML VIAL IV SCH ×2 (06:01→17:08)
[2020-08-19] MEDS: PHENYTOIN 100 MG CAPSULE.ER PO SCH ×2 (06:01→17:08)
[2020-08-19] MEDS: PANTOPRAZOLE 40 MG TAB PO SCH ×2 (11:42→17:08)
[2020-08-19] MEDS: HEPARIN 5,000 UNIT/1 ML VIAL SUB-Q SCH (11:46)
[2020-08-19] MEDS: ESCITALOPRAM 10 MG TAB PO SCH (11:54)
[2020-08-19] MEDS: DIVALPROEX DR 500 MG TAB PO SCH (11:54)
[2020-08-19] MEDS: amLODIPine 10 MG TAB PO SCH (11:54)
[2020-08-19] MEDS: levETIRAcetam 500 MG TAB PO SCH (11:54)
[2020-08-19] MEDS: DOCUSATE SODIUM 100 MG CAP PO SCH (17:07)
[2020-08-19] MEDS: DARUNAVIR 800 MG TAB PO SCH (17:07)
[2020-08-19] MEDS: EMTRICITABINE 200 MG CAP PO SCH (17:07)
[2020-08-19] MEDS: DOLUTEGRAVIR 50 MG TAB PO SCH (17:07)
[2020-08-19] MEDS: ABACAVIR 300 MG TAB PO SCH (17:08)
[2020-08-19] MEDS: RITONAVIR 100 MG TAB PO SCH (17:08)
[2020-08-20] MEDS: levETIRAcetam 500 MG TAB PO SCH ×3 (00:14→21:42)
[2020-08-20] MEDS: PHENYTOIN 100 MG CAPSULE.ER PO SCH ×3 (00:16→13:17)
[2020-08-20] MEDS: DOCUSATE SODIUM 100 MG CAP PO SCH ×2 (00:17→09:30)
[2020-08-20] MEDS: DIVALPROEX DR 500 MG TAB PO SCH ×4 (00:18→21:43)
[2020-08-20] MEDS: PIPERACIL/TAZOBACTA 4.5/NS 100 4.5 GM/100 ML VIAL IV SCH ×2 (00:18→05:27)
[2020-08-20] MEDS: HEPARIN 5,000 UNIT/1 ML VIAL SUB-Q SCH ×3 (00:18→21:43)
--- NOTE | 2020-08-20 00:42 | Progress Note ---
Assessment and Plan Assessment and Plan Painful right inguinal hernia, with fluid stranding -General surgery consulted and recommend either outpatient elective hernia repair or if the patient is staying here will do hernia repair -We will held Eliquis for 48 hours -Patient is on IV Zosyn and IV morphine for pain control -Surgery on , 08/20/2020 Metabolic encephalopathy, on top of dementia -Resolved Iliac vein thrombosis, non occlusive -Patient was on Eliquis -Hematology consult appreciated -Eliquis to be stopped for 48 to 72 hours Heparin 5000 subcu every 8 hours till surgery HIV/AIDS -Continue home medications CODE STATUS -DNR. Discussed with his sister Tami Zaragoza at [phone]. She said he does not want resuscitation -Sister stated if surgery is needed she is okay with the procedure. Disposition; continue inpatient care Management plan was discussed with his sister was in agreement with the plan of care. Discharge planning issues Patient for surgery on after 48 to 72 hours of stopping Eliquis and aspirin Patient to be discharged on 08/21/2020 Subjective Date of service: 08/19/20 Principal diagnosis: Obstructed right inguinal hernia Interval history: Patient complaining of right groin pain. Could not characterize the pain but he said it is very bad pain. 64-year-old -[place] male with past medical history significant for HIV, dementia, right inguinal hernia, DVT, ?Seizure presented to the emergency department with complaints of right inguinal pain. He states the pain has been persistent for months. He said he know he had right inguinal hernia and seen a doctor and told him he is going to do surgery. Patient is living in [facility]. Patient is on HIV medication. Patient is on Eliquis. There is a report from [facility] patient is confused. Per his sister he has dementia but alert and oriented. In the emergency department CT head was done and was normal. CT abdomen and pelvis was done and showed sigmoid colon enters in the right inguinal hernia and there is stranding there, no obstruction. 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 In the emergency department surgery consulted for the management of painful right inguinal hernia, hematology consulted for the management of iliac vein thrombosis despite on Eliquis, neurology was consulted for altered mental status. Note; patient is demented and also altered and is not able to give detailed history. History is obtained from chart review and his sister. Review of systems could not be obtained because the patient is altered. 08/15/2020 -He does not have any abdominal pain morning. Confusion resolved. -Patient is admitted for right inguinal pain secondary to right inguinal hernia. Surgery consulted and will do either elective surgery or to do it here if the p atient will stay in the hospital. We will hold Eliquis for 48 hours before the procedure -Confusion; neurology was consulted and recommended to do dementia work-up. EEG and MRI with and without contrast once the patient is stable. Continue home epileptic medications -Hematology oncology consulted and recommend to continue Eliquis -HIV AIDS; Home medications resumed -Management plan was discussed with his sister Tami Zaragoza at [phone] yesterday. 08/16/2020 Patient is not in pain As hernia is chronic, easily reducible, and not obstructed, there is no urgent or emergent need for surgery. Surgery recommends repair of the right inguinal hernia as it is symptomatic but this can be done electively. If the patient remains in the hospital until next week, and is cleared by consultants, schedule surgery as an inpatient. Eliquis will need to be held for at least 48 hours prior to any surgical intervention. Otherwise, he may follow up in surgery clinic as outpatient. 08/17/20 Patient for Inguinal Hernia repair on 08/20/20 Stopped Eliquis and ASA On Sq Heparin Eager to get surgery done and go home 08/18/2020 Hematology consult appreciated Patient for inguinal hernia surgery on 08/20/2020 Otherwise doing well On subcu heparin \ 08/19/2020 Patient for an 1 surgery tomorrow Medically cleared Objective - Constitutional Vitals: Vital Signs - 12hr 08/19/20 08/19/20 16:04 23:20 Temperature 98.6 F 98.4 F Pulse Rate 70 64 Respiratory 20 20 Rate Blood Pressure 146/82 157/107 O2 Sat by Pulse 93 96 Oximetry General appearance: Present: no acute distress, well-nourished - EENT Eyes: PERRL, EOM intact ENT: hearing intact, clear oral mucosa Ears: bilateral: normal - Neck Neck: supple, normal ROM - Respiratory Respiratory effort: normal Respiratory: bilateral: CTA - Breasts Breasts: normal - Cardiovascular Heart rate: 78 Rhythm: regular Heart Sounds: Present: S1 & S2. Absent: gallop, rub Extremities: pulses intact, No edema, normal color, Full ROM - Gastrointestinal General gastrointestinal: Present: soft, non-tender, non-distended, normal bowel sounds - Genitourinary Male genitourinary: normal - Integumentary Integumentary: clear, warm, dry - Musculoskeletal Musculoskeletal: 1, strength equal bilaterally - Neurologic Neurologic: moves all extremities - Psychiatric Psychiatric: memory intact, appropriate mood/affect, intact judgment & insight - Labs CBC & Chem 7: 08/18/20 00:54 08/18/20 00:54
[2020-08-20 06:09] LABS: Hematocrit 43.5 % (35.5-45.6); Hemoglobin 14.3 gm/dl (11.8-15.2); Mean Corpuscular HGB Conc 33 % (32-34); Mean Corpuscular Volume 91 fl (84-94); Platelet Count 143 K/mm3 (140-440); Red Cell Distribution Width 14.3 % (13.2-15.2)
[2020-08-20 06:25] LABS: Alanine Aminotransferase 23 units/L (7-56); Albumin 3.4 g/dL (3.9-5); BUN/Creatinine Ratio 8; Blood Urea Nitrogen 10 mg/dL (9-20); Calcium 9.9 mg/dL (8.4-10.2); Hemolysis Index 11
[2020-08-20 06:51] LABS: Total Cells Counted 100
[2020-08-20 06:52] LABS: Platelet Estimate Consistent w Auto; Rouleaux Few
[2020-08-20] MEDS: PANTOPRAZOLE 40 MG TAB PO SCH (08:48)
[2020-08-20] MEDS: RITONAVIR 100 MG TAB PO SCH (09:31)
[2020-08-20] MEDS: DARUNAVIR 800 MG TAB PO SCH (09:31)
[2020-08-20] MEDS: EMTRICITABINE 200 MG CAP PO SCH (09:31)
[2020-08-20] MEDS: DOLUTEGRAVIR 50 MG TAB PO SCH (09:32)
[2020-08-20] MEDS: ABACAVIR 300 MG TAB PO SCH (09:32)
[2020-08-20] MEDS: ESCITALOPRAM 10 MG TAB PO SCH (09:43)
[2020-08-20] MEDS: amLODIPine 10 MG TAB PO SCH (09:44)
[2020-08-20] MEDS ORDERED: ceFAZolin/Water 2 GM/20 ML 2 GM/20 ML SYRINGE IV NR (10:30)
--- NOTE | 2020-08-20 12:21 | Anesthesia Day of Surgery ---
Anesthesia Day of Surgery - Day of Surgery Patient Examined: Yes Patient H&P Reviewed: Yes Patient is NPO: Yes Beta Blockers: No Cardiac Clearance: No Pulmonary Clearance: No Michael's Test: N/A
[2020-08-20] MEDS ORDERED: LIDOCAINE (1%) 10 MG/1 ML VIAL 20 ML MDV ONE (12:24)
[2020-08-20] MEDS ORDERED: BUPIVACAINE/PF (0.5%) 5 MG/1 ML 30 ML VIAL INFILTRATI ONE ×2 (12:24→14:24)
--- NOTE | 2020-08-20 12:25 | Anesthesia Consultation ---
Anesthesia Consult and Med Hx Date of service: 08/20/20 - Airway Anesthetic Teeth Evaluation: Edentulous ROM Head & Neck: Adequate Mental/Hyoid Distance: Adequate Mallampati Class: Class III Intubation Access Assessment: Probably Good - Pulmonary Exam CTA: Yes - Cardiac Exam Cardiac Exam: RRR - Pre-Operative Health Status ASA Pre-Surgery Classification: ASA4 Proposed Anesthetic Plan: General - Pulmonary Hx Asthma: No Hx Respiratory Symptoms: No COPD: No Hx Pneumonia: Yes - Cardiovascular System Hx Hypertension: Yes Hx Coronary Artery Disease: Yes Hx Heart Attack/AMI: Yes (NSTEMI) Hx Peripheral Vascular Disease: Yes - Central Nervous System Hx Seizures: Yes Hx Psychiatric Problems: Yes (Dimentia) - Endocrine Hx Renal Disease: Yes (renal insufficiency) Hx End Stage Renal Disease: No - Additional Comments Anesthesia Medical History Comments: HIV+
[2020-08-20] MEDS ORDERED: LACTATED RINGERS 1,000 ML ONE ×3 (12:39→16:06)
[2020-08-20] MEDS ORDERED: LIDOCAINE MPF (2%) 20 MG/1 ML VIAL 5 ML ONE (13:00)
[2020-08-20] MEDS ORDERED: ROCURONIUM 50 MG/5 ML INJ IV ONE (13:00)
[2020-08-20] MEDS ORDERED: propofoL 200 MG/20 ML VIAL IV ONE (13:00)
[2020-08-20] MEDS ORDERED: fentaNYL 100 MCG/2 ML INJ ONE (13:00)
[2020-08-20] MEDS ORDERED: ONDANSETRON 4 MG/2 ML INJ IV PRN ×2 (13:02→15:26)
[2020-08-20] MEDS ORDERED: HYDROmorphone 1 MG/1 ML INJ IV PRN ×2 (13:02)
[2020-08-20] MEDS ORDERED: KETOROLAC 30 MG/1 ML INJ ONE (13:33)
[2020-08-20] MEDS ORDERED: dexAMETHasone 20 MG/5 ML VIAL ONE (13:33)
[2020-08-20] MEDS ORDERED: ONDANSETRON 4 MG/2 ML INJ ONE (13:33)
[2020-08-20] MEDS ORDERED: PHENYLEPHRINE 10 MG/1 ML INJ SDV ONE (14:16)
[2020-08-20] MEDS ORDERED: LIDOCAINE (1%) 10 MG/1 ML VIAL 20 ML MDV INFILTRATI ONE (14:24)
[2020-08-20] MEDS ORDERED: WATER FOR IRRIG STERILE 1,500 ML BOTTLE IR ONE (14:25)
--- NOTE | 2020-08-20 15:27 | Post Operative Note ---
Date of procedure: 08/20/20 Pre-op diagnosis: right inguinal hernia Post-op diagnosis: same Findings: large indirect hernia Procedure: robotic assisted right inguinal hernia repair with mesh Anesthesia: GETA, local Surgeon: MICHELLE JAMES (NITZA Naylor (assist)) Estimated blood loss: minimal Pathology: none Condition: stable Disposition: PACU
--- NOTE | 2020-08-20 16:00 | Operative Report ---
Operative Report Operative Report: Date of procedure: 08/20/20 Pre-op diagnosis: right inguinal hernia Post-op diagnosis: same Findings: large indirect hernia containing cord lipoma Procedure: robotic assisted right inguinal hernia repair with mesh Anesthesia: KELLY local Surgeon: MICHELLE JAMES Cnc Machinist 2Nd Shift: NITZA Naylor Estimated blood loss: minimal Pathology: none Condition: stable Disposition: PACU HPI and indication: Patient is a 64-year-old male with a longstanding history of a RIGHT inguinal hernia. The hernia is reducible however is painful. Patient came to the ER with right groin pain and AMS. It was determined that the patient would remain in the hospital to repair the hernia. I discussed all risk, benefits, alternatives to repair with the patient and questions were answered. I explained that if the hernia was found on the left side at the same time, this would be fixed as well. The patient was agreeable. This was also discussed with the patient's sister Julissa Zaragoza/medical proxy who also agreed to proceed with surgery. Consent obtained for robotic assisted left inguinal hernia repair with mesh, possible right, possible open. Procedure in detail: Patient was identified in the preoperative area, take back to operating room placed on operative table in supine position. After anesthesia was induced both arms were tucked and all bony prominences padded appropriately. A Chang catheter was sterilely placed by the circulating nurse. The abdomen and RIGHT groin was then prepped and draped in usual sterile fashion a timeout performed. Local anesthetic was infiltrated to skin at the intended incision sites. A supraumbilical incision was made through which a Veress needle was inserted. Veress needle positioning was confirmed using saline drop test and the abdomen insufflated to 15 mmHg. Once the abdomen was insufflated, the Veress needle was removed and a 5 mm Optiview trocar was placed as incision. The abdomen is inspected there was no underlying injury to any of the abdominal structures. Patient was placed in Trendelenburg and the pelvis examined. The right inguinal hernia which contained colon on Ct scan was already reduced. There was no hernia seen on the left side. At this point, an 8 mm right upper quadrant and left upper quadrant robotic trocars were then placed under direct visualization. The 5 mm supraumbilical trocar was removed and replaced with a 12 mm balloon trocar under direct visualization. A tiny serosal abrasion was seen of the transverse colon without full thickness injury. A Ray-Kelli was placed into the abdomen. The robot was then docked. A fenestrated bipolar was placed into arm #2 and a monopolar scissor in arm #1. The surgeon was then transferred to the console. I started by creating a preperitoneal flap. The peritoneum was scored approximately 5 to 6 cm from the hernia defect. The peritoneum was then incised from the midline to the ASIS. The preperitoneal flap was then developed in an avascular plane. I first defined by medial margins by dissecting to the pubic tubercle. The pubic tubercle was cleared of overlying fatty tissue using blunt dissection. I then created lateral margin in a similar fashion. Great care was taken to avoid injury to any nerves. I then started to reduce the hernia sac. The hernia sac was grasped and retracted laterally and cremasteric muscles were divided in a very careful fashion. During the dissection, the cord structures were identified and protected. The cord structures and vas deferens were visualized throughout the entire dissection. There was a large cord lipoma associated with the hernia sac which was reduced. The patient had a large, redundant indirect hernia sac. Once the sac was reduced the peritoneal flap was checked for hemostasis. Any additional cremasteric fibers that were were tenting up the peritoneum were divided. Hemostasis was carefully ensured. I decided to repair the hernia with a large RIGHT-sided 3D max mesh. This along with suture material was placed into the abdomen by the marketing administrative assistant. The mesh was positioned into the preperitoneal flap in the usual fashion. The medial portion of the flap was sutured to Deejay's ligament using an interrupted 2-0 Vicryl stitch. The lateral aspect of the mesh was sutured to the anterior lateral abdominal wall using a 2-0 Vicryl interrupted stitch. The mesh was seen to lay flat in the pocket with excellent coverage. A 18 [place]an Angiocath was inserted through the lateral abdominal wall into the pocket by the marketing administrative assistant under direct visualization. The needle was withdrawn into the catheter. The peritoneum was then reapproximated using 3-0 running V-Loc stitch. The cord lipoma was incorporated into this repair. The entirety of the mesh was covered with peritoneum. Tiny serosal tear in transverse colon repaired with 3-0 silk lembert stitch x2. The robot was then undocked and the surgeon scrubbed back in. The remainder of the case was performed laparoscopically. All sharp materials along with a Ray-Kelli were removed from the abdomen under direct visualization. The 12 mm port was removed and the fascia closed using a interrupted 0 Vicryl stitch with a Nik Willis device. The abdomen was then slowly desufflated and the mesh was seen to lay flat in the preperitoneal space. The remaining trocars were removed and any scrotal air evacuated through the Angiocath. The Angiocath was then removed. Skin incisions were once again infiltrated with local anesthetic. A RIGHT ilioinguinal nerve block was also performed with 5 cc of local anesthetic. The skin incisions were approximated with 4-0 Monocryl subcuticular stitches and skin glue. At the end of the case all sponge, instrument, sharp counts were correct x2. Patient was awoken from anesthesia and Chang catheter removed. The patient was taken to PACU in stable condition.
--- NOTE | 2020-08-20 17:25 | Progress Note ---
Assessment and Plan Assessment and Plan Painful right inguinal hernia, with fluid stranding -Patient had surgery today large indirect hernia containing cord lipoma See procedure note Metabolic encephalopathy, on top of dementia -Resolved Iliac vein thrombosis, non occlusive -Patient was on Eliquis -Hematology consult appreciated -Eliquis to be stopped for 48 to 72 hours Heparin 5000 subcu every 8 hours till surgery HIV/AIDS -Continue home medications CODE STATUS -DNR. Discussed with his sister Tami Zaragoza at [phone]. She said he does not want resuscitation -Sister stated if surgery is needed she is okay with the procedure. Disposition; continue inpatient care Management plan was discussed with his sister was in agreement with the plan of care. Discharge planning issues Patient had surgery today Depending on his recovery time and surgical clearance will discharge the patient tomorrow if possible Subjective Date of service: 08/20/20 Principal diagnosis: Obstructed right inguinal hernia Interval history: Patient complaining of right groin pain. Could not characterize the pain but he said it is very bad pain. 64-year-old -[place] male with past medical history significant for HIV, dementia, right inguinal hernia, DVT, ?Seizure presented to the emergency department with complaints of right inguinal pain. He states the pain has been persistent for months. He said he know he had right inguinal hernia and seen a doctor and told him he is going to do surgery. Patient is living in exiting senior living. Patient is on HIV medication. Patient is on Eliquis. There is a report from senior living patient is confused. Per his sister he has dementia but alert and oriented. In the emergency department CT head was done and was normal. CT abdomen and pelvis was done and showed sigmoid colon enters in the right inguinal hernia and there is stranding there, no obstruction. 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 In the emergency department surgery consulted for the management of painful right inguinal hernia, hematology consulted for the management of iliac vein thrombosis despite on Eliquis, neurology was consulted for altered mental status. Note; patient is demented and also altered and is not able to give detailed history. History is obtained from chart review and his sister. Review of systems could not be obtained because the patient is altered. 08/15/2020 -He does not have any abdominal pain morning. Confusion resolved. -Patient is admitted for right inguinal pain secondary to right inguinal hernia. Surgery consulted and will do either elective surgery or to do it here if the patient will stay in the hospital. We will hold Eliquis for 48 hours before the procedure -Confusion; neurology was consulted and recommended to do dementia work-up. EEG and MRI with and without contrast once the patient is stable. Continue home epileptic medications -Hematology oncology consulted and recommend to continue Eliquis -HIV AIDS; Home medications resumed -Management plan was discussed with his sister Tami Zaragoza at [phone] yesterday. 08/16/2020 Patient is not in pain As hernia is chronic, easily reducible, and not obstructed, there is no urgent or emergent need for surgery. Surgery recommends repair of the right inguinal hernia as it is symptomatic but this can be done electively. If the patient remains in the hospital until next week, and is cleared by consultants, schedule surgery as an inpatient. Eliquis will need to be held for at least 48 hours prior to any surgical intervention. Otherwise, he may follow up in surgery clinic as outpatient. 08/17/20 Patient for Inguinal Hernia repair on 08/20/20 Stopped Eliquis and ASA On Sq Heparin Eager to get surgery done and go home 08/18/2020 Hematology consult appreciated Patient for inguinal hernia surgery on 08/20/2020 Otherwise doing well On subcu heparin \ 08/19/2020 Patient for an 1 surgery tomorrow Medically cleared 08/20/2020 Patient had right inguinal hernia surgery today Postop patient doing well No shortness of breath or decreased level of consciousness Eliquis to be started tomorrow Objective - Constitutional Vitals: Vital Signs - 12hr 08/20/20 08/20/20 08/20/20 10:36 12:15 12:40 Temperature 97.7 F 98.3 F 98.3 F Pulse Rate 82 66 66 Respiratory 16 20 20 Rate Blood Pressure 154/124 157/83 157/83 O2 Sat by Pulse 96 96 96 Oximetry 08/20/20 08/20/20 08/20/20 15:30 15:35 15:40 Temperature 97 F L Pulse Rate 116 H 115 H 96 H Respiratory 12 12 10 L Rate Blood Pressure 151/107 162/110 149/100 O2 Sat by Pulse 100 100 Oximetry 08/20/20 15:57 Temperature Pulse Rate 77 Respiratory 12 Rate Blood Pressure 141/99 O2 Sat by Pulse 100 Oximetry General appearance: Present: no acute distress, well-nourished - EENT Eyes: PERRL, EOM intact ENT: hearing intact, clear oral mucosa Ears: bilateral: normal - Neck Neck: supple, normal ROM - Respiratory Respiratory effort: normal Respiratory: bilateral: CTA - Breasts Breasts: normal - Cardiovascular Heart rate: 78 Rhythm: regular Heart Sounds: Present: S1 & S2. Absent: gallop, rub Extremities: pulses intact, No edema, normal color, Full ROM - Gastrointestinal General gastrointestinal: Present: soft, non-tender, non-distended, normal bowel sounds - Genitourinary Male genitourinary: normal - Integumentary Integumentary: clear, warm, dry - Musculoskeletal Musculoskeletal: 1, strength equal bilaterally - Neurologic Neurologic: moves all extremities - Psychiatric Psychiatric: memory intact, appropriate mood/affect, intact judgment & insight - Labs CBC & Chem 7: 08/20/20 05:12 08/20/20 05:12 Labs: Abnormal lab results 08/20/20 08/20/20 Range/Units 05:12 05:12 WBC 3.6 L (4.5-11.0) K/mm3 Seg Neuts % (Manual) 24.0 L (40.0-70.0) % Lymphocytes % (Manual) 59.0 H (13.4-35.0) % Monocytes % (Manual) 15.0 H (0.0-7.3) % Seg Neutrophils # Man 0.9 L (1.8-7.7) K/mm3 Chloride 107.1 H (98-107) mmol/L Albumin 3.4 L (3.9-5) g/dL
--- NOTE | 2020-08-20 17:59 | Post Anesthesia Evaluation ---
- Post Anesthesia Evaluation Patient Participated: Yes Airway Patent: Yes Stable Respiratory Function: Yes Nausea/Vomiting: No Temp > 96.8F: Yes Pain Manageable: Yes Adequeate Hydration: Yes Anesthesia Complications: No Block Receding Appropriately: Not Applicable Patient on Ventilator: No
[2020-08-20] MEDS: HYDROcodone/ACETAMINOPHEN 5-325 MG TAB PO PRN (22:51)
[2020-08-21] MEDS: PHENYTOIN 100 MG CAPSULE.ER PO SCH ×4 (05:25→22:39)
[2020-08-21] MEDS: amLODIPine 10 MG TAB PO SCH (09:40)
[2020-08-21] MEDS: ESCITALOPRAM 10 MG TAB PO SCH (09:40)
[2020-08-21] MEDS: DIVALPROEX DR 500 MG TAB PO SCH ×2 (09:40→22:39)
[2020-08-21] MEDS: levETIRAcetam 500 MG TAB PO SCH ×2 (09:40→22:39)
[2020-08-21] MEDS: EMTRICITABINE 200 MG CAP PO SCH (09:43)
[2020-08-21] MEDS: DOLUTEGRAVIR 50 MG TAB PO SCH (09:43)
[2020-08-21] MEDS: ABACAVIR 300 MG TAB PO SCH (09:43)
[2020-08-21] MEDS: RITONAVIR 100 MG TAB PO SCH (09:43)
[2020-08-21] MEDS: HEPARIN 5,000 UNIT/1 ML VIAL SUB-Q SCH ×2 (09:43→22:39)
[2020-08-21] MEDS: PANTOPRAZOLE 40 MG TAB PO SCH (09:43)
--- NOTE | 2020-08-21 12:39 | Progress Note ---
Assessment and Plan 64-year-old male status post robotic assisted right inguinal hernia repair with mesh, postop day 1 Plan: 1. Soft diet 2. As needed p.o. pain control 3. Out of bed/ambulate 4. I-S/pulmonary toilet 5. May resume anticoagulation from surgical standpoint 6. Ice to incisions 7. Patient had a very large, chronically incarcerated hernia sac and right groin fullness as expected postoperatively. This will slowly improve over time which I explained to the patient. May be discharged from surgical standpoint and follow-up in surgery clinic in 2 weeks. Intraoperative findings were also discussed with the patient Sister Tami Zaragoza yesterday after completion of surgery. Thank you for this consultation. Please call with any questions or concerns. Subjective Date of service: 08/21/20 Narrative: Patient seen and examined. States that he is having soreness of his abdomen near the incisions. He is refused pain medication per nursing notes. He is already changed into regular clothing. He is tolerating a diet. Objective Vital Signs - 12hr 08/21/20 08/21/20 05:31 05:50 Temperature 98.6 F Respiratory 6 L 18 Rate Blood Pressure 119/78 O2 Sat by Pulse 97 Oximetry - General physical appearance Narrative Exam: Gen.: Awake, alert, oriented to person and place. No apparent distress ENT: Trachea midline. No lymphadenopathy. No scleral icterus or conjunctival pallor CV: S1, S2 present Respiratory: No audible wheezes Abdomen: Soft, nondistended, nontender. Incisions clean, dry, intact. Right groin with mild fullness. No rebound, rigidity, guarding Extremities: No clubbing, cyanosis, edema - Labs 08/20/20 05:12 08/20/20 05:12
[2020-08-21] MEDS: DARUNAVIR 800 MG TAB PO SCH (13:38)
--- NOTE | 2020-08-21 17:47 | Progress Note ---
Assessment and Plan Assessment and Plan Painful right inguinal hernia, with fluid stranding -Patient had surgery today large indirect hernia containing cord lipoma See procedure note From surgery " 64-year-old male status post robotic assisted right inguinal hernia repair with mesh, postop day 1 Plan: 1. Soft diet 2. As needed p.o. pain control 3. Out of bed/ambulate 4. I-S/pulmonary toilet 5. May resume anticoagulation from surgical standpoint 6. Ice to incisions 7. Patient had a very large, chronically incarcerated hernia sac and right groin fullness as expected postoperatively. This will slowly improve over time which I explained to the patient. May be discharged from surgical standpoint and follow-up in surgery clinic in 2 weeks. Intraoperative findings were also discussed with the patient Sister Tami Zaragoza yesterday after completion of surgery." Metabolic encephalopathy, on top of dementia -Resolved Iliac vein thrombosis, non occlusive -Patient was on Eliquis -Hematology consult appreciated -Eliquis to be stopped for 48 to 72 hours Heparin 5000 subcu every 8 hours till surgery HIV/AIDS -Continue home medications CODE STATUS -DNR. Discussed with his sister Tami Zaragoza at [phone]. She said he does not want resuscitation -Sister stated if surgery is needed she is okay with the procedure. Disposition; continue inpatient care Management plan was discussed with his sister was in agreement with the plan of care. Discharge planning issues Patient had surgery today Depending on his recovery time and surgical clearance will discharge the patient tomorrow if possible Subjective Date of service: 08/21/20 Principal diagnosis: Obstructed right inguinal hernia Interval history: Patient complaining of right groin pain. Could not characterize the pain but he said it is very bad pain. 64-year-old -[place] male with past medical history significant for HIV, dementia, right inguinal hernia, DVT, ?Seizure presented to the emergency department with complaints of right inguinal pain. He states the pain has been persistent for months. He said he know he had right inguinal hernia and seen a doctor and told him he is going to do surgery. Patient is living in exiting assisted. Patient is on HIV medication. Patient is on Eliquis. There is a report from assisted patient is confused. Per his sister he has dementia but alert and oriented. In the emergency department CT head was done and was normal. CT abdomen and pelvis was done and showed sigmoid colon enters in the right inguinal hernia and there is stranding there, no obstruction. 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 In the emergency department surgery consulted for the management of painful right inguinal hernia, hematology consulted for the management of iliac vein thrombosis despite on Eliquis, neurology was consulted for altered mental status. Note; patient is demented and also altered and is not able to give detailed history. History is obtained from chart review and his sister. Review of systems could not be obtained because the patient is altered. 08/15/2020 -He does not have any abdominal pain morning. Confusion resolved. -Patient is admitted for right inguinal pain secondary to right inguinal hernia. Surgery consulted and will do either elective surgery or to do it here if the patient will stay in the hospital. We will hold Eliquis for 48 hours before the procedure -Confusion; neurology was consulted and recommended to do dementia work-up. EEG and MRI with and without contrast once the patient is stable. Continue home epileptic medications -Hematology oncology consulted and recommend to continue Eliquis -HIV AIDS; Home medications resumed -Management plan was discussed with his sister Tami Zaragoza at [phone] yesterday. 08/16/2020 Patient is not in pain As hernia is chronic, easily reducible, and not obstructed, there is no urgent or emergent need for surgery. Surgery recommends repair of the right inguinal hernia as it is symptomatic but this can be done electively. If the patient remains in the hospital until next week, and is cleared by consultants, schedule surgery as an inpatient. Eliquis will need to be held for at least 48 hours prior to any surgical intervention. Otherwise, he may follow up in surgery clinic as outpatient. 08/17/20 Patient for Inguinal Hernia repair on 08/20/20 Stopped Eliquis and ASA On Sq Heparin Eager to get surgery done and go home 08/18/2020 Hematology consult appreciated Patient for inguinal hernia surgery on 08/20/2020 Otherwise doing well On subcu heparin \\ 08/19/2020 Patient for an 1 surgery tomorrow Medically cleared 08/20/2020 Patient had right inguinal hernia surgery today Postop patient doing well No shortness of breath or decreased level of consciousness Eliquis to be started tomorrow 08/21/2020 Postop patient doing well Patient was discharged to [facility] in the morning because of logistics Objective - Constitutional Vitals: Vital Signs - 12hr 12/18/20 12/18/20 12/18/20 05:50 10:00 10:58 Temperature 98.1 F Pulse Rate 111 H Respiratory 18 15 Rate Respiratory 17 Rate [Right Abdomen] Blood Pressure 109/86 O2 Sat by Pulse 97 100 Oximetry 08/21/20 15:58 Temperature 98.2 F Pulse Rate 103 H Respiratory 18 Rate Respiratory Rate [Right Abdomen] Blood Pressure 143/99 O2 Sat by Pulse 96 Oximetry General appearance: Present: no acute distress, well-nourished - EENT Eyes: PERRL, EOM intact ENT: hearing intact, clear oral mucosa Ears: bilateral: normal - Neck Neck: supple, normal ROM - Respiratory Respiratory effort: normal Respiratory: bilateral: CTA - Breasts Breasts: normal - Cardiovascular Rhythm: regular Heart Sounds: Present: S1 & S2. Absent: gallop, rub Extremities: pulses intact, No edema, normal color, Full ROM - Gastrointestinal General gastrointestinal: Present: soft, non-tender, non-distended, normal bowel sounds - Genitourinary Male genitourinary: normal - Integumentary Integumentary: clear, warm, dry - Musculoskeletal Musculoskeletal: 1, strength equal bilaterally - Neurologic Neurologic: moves all extremities - Psychiatric Psychiatric: memory intact, appropriate mood/affect, intact judgment & insight - Labs CBC & Chem 7: 08/20/20 05:12 08/20/20 05:12 Labs: Abnormal lab results 08/20/20 Range/Units 21:33 POC Glucose 125 H (70-105) mg/dL
[2020-08-21] MEDS: HYDROcodone/ACETAMINOPHEN 5-325 MG TAB PO PRN ×2 (18:40→22:39)
--- NOTE | 2020-08-21 23:38 | Discharge Summary ---
<MICHELLE JAMES - Last Filed: 08/22/20 08:55> Providers - Providers Date of Admission: 08/14/20 07:27 Attending physician: TATO MOLINA 08/14/20 07:27 Consult to Physician [CONS] Routine Comment: Consulting Provider: MICHELLE JAMES Physician Instructions: Reason For Exam: inguinal hernia with stranding 08/14/20 08:04 Consult to Physician [CONS] Routine Comment: Patient was on Eliquis Consulting Provider: MANUEL CARPIO Physician Instructions: Reason For Exam: Iliac vein thrombosis, nonocclusive 08/14/20 08:05 Consult to Physician [CONS] Routine Comment: Consulting Provider: VIVIAN DAMON Physician Instructions: Reason For Exam: Altered mental status Primary care physician: BARN MANAGER Hospitalization Condition: Critical Disposition: DC/[place]-03 [facility] CERT Exam - Constitutional Vitals: Temp Pulse Resp BP Pulse Ox 97.9 F 75 15 110/73 95 08/22/20 05:34 08/22/20 05:34 08/22/20 05:34 08/22/20 05:34 08/22/20 05:34 Plan Activity: other ( No heavy lifting for 6 weeks) Wound: open to air, per your surgeon's advice ( May shower come a Pat incisions dry, do not scrub.) Follow up with: MICHELLE JAMES DO [Staff Physician] - 14 Days PRIMARY CARE, [Primary Care Provider] - 7 Days <TATO MOLINA - Last Filed: 08/23/20 16:58> Providers - Providers Date of Admission: 08/14/20 07:27 Date of discharge: 08/24/20 Attending physician: TATO MOLINA 08/14/20 07:27 Consult to Physician [CONS] Routine Comment: Consulting Provider: MICHELLE JAMES Physician Instructions: Reason For Exam: inguinal hernia with stranding 08/14/20 08:04 Consult to Physician [CONS] Routine Comment: Patient was on Eliquis Consulting Provider: MANUEL CARPIO Physician Instructions: Reason For Exam: Iliac vein thrombosis, nonocclusive 08/14/20 08:05 Consult to Physician [CONS] Routine Comment: Consulting Provider: VIVIAN DAMON Physician Instructions: Reason For Exam: Altered mental status Primary care physician: BARN MANAGER Core Measure Documentation - Palliative Care Palliative Care/ Comfort Measures: Not Applicable - Core Measures Any of the following diagnoses?: none Exam - Constitutional Vitals: Temp Pulse Resp BP Pulse Ox 98.2 F 103 H 18 143/99 96 08/21/20 15:58 08/21/20 15:58 08/21/20 15:58 08/21/20 15:58 08/21/20 15:58 General appearance: Present: no acute distress, well-nourished - EENT Eyes: Present: PERRL ENT: hearing intact, clear oral mucosa - Neck Neck: Present: supple, normal ROM - Respiratory Respiratory effort: normal Respiratory: bilateral: CTA - Cardiovascular Heart rate: 78 Rhythm: regular Heart Sounds: Present: S1 & S2. Absent: rub, click - Extremities Extremities: pulses symmetrical, No edema Peripheral Pulses: within normal limits - Abdominal General gastrointestinal: Present: soft, non-tender, non-distended, normal bowel sounds Male genitourinary: Present: normal - Rectal Rectal Exam: deferred - Integumentary Integumentary: Present: clear, warm, dry - Musculoskeletal Musculoskeletal: gait normal, strength equal bilaterally - Psychiatric Psychiatric: appropriate mood/affect, intact judgment & insight - Neurologic Neurologic: CNII-XII intact, moves all extremities Plan Activity: no restrictions Diet: low salt
[2020-08-22] MEDS: PHENYTOIN 100 MG CAPSULE.ER PO SCH ×4 (06:51→22:00)
[2020-08-22] MEDS: HYDROcodone/ACETAMINOPHEN 5-325 MG TAB PO PRN (17:05)
[2020-08-22] MEDS: levETIRAcetam 500 MG TAB PO SCH ×2 (17:06→21:57)
[2020-08-22] MEDS: PANTOPRAZOLE 40 MG TAB PO SCH (17:07)
[2020-08-22] MEDS: HEPARIN 5,000 UNIT/1 ML VIAL SUB-Q SCH ×4 (17:07→23:32)
[2020-08-22] MEDS: DOLUTEGRAVIR 50 MG TAB PO SCH (17:08)
[2020-08-22] MEDS: ESCITALOPRAM 10 MG TAB PO SCH (17:10)
[2020-08-22] MEDS: ABACAVIR 300 MG TAB PO SCH (17:10)
[2020-08-22] MEDS: DIVALPROEX DR 500 MG TAB PO SCH ×2 (17:10→21:58)
[2020-08-22] MEDS: DARUNAVIR 800 MG TAB PO SCH (17:11)
[2020-08-22] MEDS: RITONAVIR 100 MG TAB PO SCH (17:11)
[2020-08-22] MEDS: EMTRICITABINE 200 MG CAP PO SCH (17:11)
[2020-08-22] MEDS: amLODIPine 10 MG TAB PO SCH (17:16)
[2020-08-23] MEDS: PHENYTOIN 100 MG CAPSULE.ER PO SCH ×3 (05:57→21:23)
[2020-08-23] MEDS: levETIRAcetam 500 MG TAB PO SCH ×2 (10:54→21:23)
[2020-08-23] MEDS: DIVALPROEX DR 500 MG TAB PO SCH ×2 (10:54→21:24)
[2020-08-23] MEDS: amLODIPine 10 MG TAB PO SCH ×2 (10:54→11:16)
[2020-08-23] MEDS: DARUNAVIR 800 MG TAB PO SCH (10:55)
[2020-08-23] MEDS: ABACAVIR 300 MG TAB PO SCH (10:55)
[2020-08-23] MEDS: RITONAVIR 100 MG TAB PO SCH (10:55)
[2020-08-23] MEDS: ESCITALOPRAM 10 MG TAB PO SCH (10:55)
[2020-08-23] MEDS: DOLUTEGRAVIR 50 MG TAB PO SCH (10:55)
[2020-08-23] MEDS: EMTRICITABINE 200 MG CAP PO SCH (10:55)
[2020-08-23] MEDS: HEPARIN 5,000 UNIT/1 ML VIAL SUB-Q SCH ×3 (10:56→21:24)
[2020-08-23] MEDS: PANTOPRAZOLE 40 MG TAB PO SCH (11:08)
[2020-08-23] MEDS: HYDROcodone/ACETAMINOPHEN 5-325 MG TAB PO PRN (16:09)
--- NOTE | 2020-08-23 16:53 | Progress Note ---
Assessment and Plan Assessment and Plan Painful right inguinal hernia, with fluid stranding -Patient had surgery today large indirect hernia containing cord lipoma See procedure note From surgery " 64-year-old male status post robotic assisted right inguinal hernia repair with mesh, postop day 1 Plan: 1. Soft diet 2. As needed p.o. pain control 3. Out of bed/ambulate 4. I-S/pulmonary toilet 5. May resume anticoagulation from surgical standpoint 6. Ice to incisions 7. Patient had a very large, chronically incarcerated hernia sac and right groin fullness as expected postoperatively. This will slowly improve over time which I explained to the patient. May be discharged from surgical standpoint and follow-up in surgery clinic in 2 weeks. Intraoperative findings were also discussed with the patient Sister Tami Zaragoza yesterday after completion of surgery." Metabolic encephalopathy, on top of dementia -Resolved Iliac vein thrombosis, non occlusive -Patient was on Eliquis -Hematology consult appreciated -Eliquis to be stopped for 48 to 72 hours Heparin 5000 subcu every 8 hours till surgery HIV/AIDS -Continue home medications CODE STATUS -DNR. Discussed with his sister Tami Zaragoza at [phone]. She said he does not want resuscitation -Sister stated if surgery is needed she is okay with the procedure. Disposition; continue inpatient care Management plan was discussed with his sister was in agreement with the plan of care. Discharge planning issues Patient waiting for placement to [facility] Subjective Date of service: 08/22/20 Principal diagnosis: Obstructed right inguinal hernia Interval history: Patient complaining of right groin pain. Could not characterize the pain but he said it is very bad pain. 64-year-old -[place] male with past medical history significant for HIV, dementia, right inguinal hernia, DVT, ?Seizure presented to the emergency department with complaints of right inguinal pain. He states the pain has been persistent for months. He said he know he had right inguinal hernia and seen a doctor and told him he is going to do surgery. Patient is living in exiting retirement. Patient is on HIV medication. Patient is on Eliquis. There is a report from retirement patient is confused. Per his sister he has dementia but alert and oriented. In the emergency department CT head was done and was normal. CT abdomen and pelvis was done and showed sigmoid colon enters in the right inguinal hernia and there is stranding there, no obstruction. 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 In the emergency department surgery consulted for the management of painful right inguinal hernia, hematology consulted for the management of iliac vein thrombosis despite on Eliquis, neurology was consulted for altered mental status. Note; patient is demented and also altered and is not able to give detailed history. History is obtained from chart review and his sister. Review of systems could not be obtained because the patient is altered. 08/15/2020 -He does not have any abdominal pain morning. Confusion resolved. -Patient is admitted for right inguinal pain secondary to right inguinal hernia. Surgery consulted and will do either elective surgery or to do it here if the patient will stay in the hospital. We will hold Eliquis for 48 hours before the procedure -Confusion; neurology was consulted and recommended to do dementia work-up. EEG and MRI with and without contrast once the patient is stable. Continue home epileptic medications -Hematology oncology consulted and recommend to continue Eliquis -HIV AIDS; Home medications resumed -Management plan was discussed with his sister Tami Zaragoza at [phone] yesterday. 08/16/2020 Patient is not in pain As hernia is chronic, easily reducible, and not obstructed, there is no urgent or emergent need for surgery. Surgery recommends repair of the right inguinal h ernia as it is symptomatic but this can be done electively. If the patient remains in the hospital until next week, and is cleared by consultants, schedule surgery as an inpatient. Eliquis will need to be held for at least 48 hours prior to any surgical intervention. Otherwise, he may follow up in surgery clinic as outpatient. 08/17/20 Patient for Inguinal Hernia repair on 08/20/20 Stopped Eliquis and ASA On Sq Heparin Eager to get surgery done and go home 08/18/2020 Hematology consult appreciated Patient for inguinal hernia surgery on 08/20/2020 Otherwise doing well On subcu heparin \\ 08/19/2020 Patient for an 1 surgery tomorrow Medically cleared 08/20/2020 Patient had right inguinal hernia surgery today Postop patient doing well No shortness of breath or decreased level of consciousness Eliquis to be started tomorrow 08/21/2020 Postop patient doing well Patient was discharged to [facility] but did not go because of Covid criteria 08/22/2020 Patient waiting for placement to the [facility] + Objective - Constitutional Vitals: Vital Signs - 12hr 08/23/20 08/23/20 11:14 11:16 Temperature 98.5 F Pulse Rate 56 L 56 L Respiratory 18 Rate Blood Pressure 101/58 101/58 O2 Sat by Pulse 96 Oximetry General appearance: Present: no acute distress, well-nourished - EENT Eyes: PERRL, EOM intact ENT: hearing intact, clear oral mucosa Ears: bilateral: normal - Neck Neck: supple, normal ROM - Respiratory Respiratory effort: normal Respiratory: bilateral: CTA - Breasts Breasts: normal - Cardiovascular Heart rate: 78 Rhythm: regular Heart Sounds: Present: S1 & S2. Absent: gallop, rub Extremities: pulses intact, No edema, normal color, Full ROM - Gastrointestinal General gastrointestinal: Present: soft, non-tender, non-distended, normal bowel sounds - Genitourinary Male genitourinary: normal - Integumentary Integumentary: clear, warm, dry - Musculoskeletal Musculoskeletal: 1, strength equal bilaterally - Neurologic Neurologic: moves all extremities - Psychiatric Psychiatric: memory intact, appropriate mood/affect, intact judgment & insight - Labs CBC & Chem 7: 08/20/20 05:12 08/20/20 05:12
--- NOTE | 2020-08-23 17:04 | Progress Note ---
Assessment and Plan Assessment and Plan Painful right inguinal hernia, with fluid stranding -Patient had surgery today large indirect hernia containing cord lipoma See procedure note From surgery " 64-year-old male status post robotic assisted right inguinal hernia repair with mesh, postop day 1 Plan: 1. Soft diet 2. As needed p.o. pain control 3. Out of bed/ambulate 4. I-S/pulmonary toilet 5. May resume anticoagulation from surgical standpoint 6. Ice to incisions 7. Patient had a very large, chronically incarcerated hernia sac and right groin fullness as expected postoperatively. This will slowly improve over time which I explained to the patient. May be discharged from surgical standpoint and follow-up in surgery clinic in 2 weeks. Intraoperative findings were also discussed with the patient Sister Tami Zaragoza yesterday after completion of surgery." Metabolic encephalopathy, on top of dementia -Resolved Iliac vein thrombosis, non occlusive -Patient was on Eliquis -Hematology consult appreciated -Eliquis to be stopped for 48 to 72 hours Heparin 5000 subcu every 8 hours till surgery HIV/AIDS -Continue home medications CODE STATUS -DNR. Discussed with his sister Tami Zaragoza at [phone]. She said he does not want resuscitation -Sister stated if surgery is needed she is okay with the procedure. Disposition; continue inpatient care Management plan was discussed with his sister was in agreement with the plan of care. Discharge planning issues Patient waiting for placement to [facility] Subjective Date of service: 08/23/20 Principal diagnosis: Obstructed right inguinal hernia Interval history: Patient complaining of right groin pain. Could not characterize the pain but he said it is very bad pain. 64-year-old -[place] male with past medical history significant for HIV, dementia, right inguinal hernia, DVT, ?Seizure presented to the emergency department with complaints of right inguinal pain. He states the pain has been persistent for months. He said he know he had right inguinal hernia and seen a doctor and told him he is going to do surgery. Patient is living in [facility]. Patient is on HIV medication. Patient is on Eliquis. There is a report from prison patient is confused. Per his sister he has dementia but alert and oriented. In the emergency department CT head was done and was normal. CT abdomen and pelvis was done and showed sigmoid colon enters in the right inguinal hernia and there is stranding there, no obstruction. 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 In the emergency department surgery consulted for the management of painful right inguinal hernia, hematology consulted for the management of iliac vein thrombosis despite on Eliquis, neurology was consulted for altered mental status. Note; patient is demented and also altered and is not able to give detailed history. History is obtained from chart review and his sister. Review of systems could not be obtained because the patient is altered. 08/15/2020 -He does not have any abdominal pain morning. Confusion resolved. -Patient is admitted for right inguinal pain secondary to right inguinal hernia. Surgery consulted and will do either elective surgery or to do it here if the patient will stay in the hospital. We will hold Eliquis for 48 hours before the procedure -Confusion; neurology was consulted and recommended to do dementia work-up. EEG and MRI with and without contrast once the patient is stable. Continue home epileptic medications -Hematology oncology consulted and recommend to continue Eliquis -HIV AIDS; Home medications resumed -Management plan was discussed with his sister Tami Zaragoza at [phone] yesterday. 08/16/2020 Patient is not in pain As hernia is chronic, easily reducible, and not obstructed, there is no urgent or emergent need for surgery. Surgery recommends repair of the right inguinal h ernia as it is symptomatic but this can be done electively. If the patient remains in the hospital until next week, and is cleared by consultants, schedule surgery as an inpatient. Eliquis will need to be held for at least 48 hours prior to any surgical intervention. Otherwise, he may follow up in surgery clinic as outpatient. 08/17/20 Patient for Inguinal Hernia repair on 08/20/20 Stopped Eliquis and ASA On Sq Heparin Eager to get surgery done and go home 08/18/2020 Hematology consult appreciated Patient for inguinal hernia surgery on 08/20/2020 Otherwise doing well On subcu heparin \\ 08/19/2020 Patient for an 1 surgery tomorrow Medically cleared 08/20/2020 Patient had right inguinal hernia surgery today Postop patient doing well No shortness of breath or decreased level of consciousness Eliquis to be started tomorrow 08/21/2020 Postop patient doing well Patient was discharged to [facility] but did not go because of Covid criteria 08/22/2020 Patient waiting for placement to the [facility] 08/23/2020 No complaints Patient waiting for prison [facility] + Objective - Constitutional Vitals: Vital Signs - 12hr 08/23/20 08/23/20 11:14 11:16 Temperature 98.5 F Pulse Rate 56 L 56 L Respiratory 18 Rate Blood Pressure 101/58 101/58 O2 Sat by Pulse 96 Oximetry General appearance: Present: no acute distress, well-nourished - EENT Eyes: PERRL, EOM intact ENT: hearing intact, clear oral mucosa Ears: bilateral: normal - Neck Neck: supple, normal ROM - Respiratory Respiratory effort: normal Respiratory: bilateral: CTA - Breasts Breasts: normal - Cardiovascular Heart rate: 78 Rhythm: regular Heart Sounds: Present: S1 & S2. Absent: gallop, rub Extremities: no ischemia, pulses intact, No edema, normal color, Full ROM - Gastrointestinal General gastrointestinal: Present: soft, non-tender, non-distended, normal bowel sounds Rectal Exam: deferred - Genitourinary Male genitourinary: normal - Integumentary Integumentary: clear, warm, dry - Musculoskeletal Musculoskeletal: 1, strength equal bilaterally - Neurologic Neurologic: moves all extremities - Psychiatric Psychiatric: memory intact, appropriate mood/affect, intact judgment & insight - Allied health notes Allied health notes reviewed: nursing, case management - Labs CBC & Chem 7: 08/20/20 05:12 08/20/20 05:12
[2020-08-24] MEDS: PHENYTOIN 100 MG CAPSULE.ER PO SCH ×3 (05:22→13:11)
[2020-08-24] MEDS: HEPARIN 5,000 UNIT/1 ML VIAL SUB-Q SCH (10:00)
[2020-08-24] MEDS: levETIRAcetam 500 MG TAB PO SCH (11:52)
[2020-08-24] MEDS: amLODIPine 10 MG TAB PO SCH (11:52)
[2020-08-24] MEDS: DOLUTEGRAVIR 50 MG TAB PO SCH (11:52)
[2020-08-24 11:54] VITALS: BP 116/77
[2020-08-24] MEDS: PANTOPRAZOLE 40 MG TAB PO SCH (11:54)
[2020-08-24] MEDS: EMTRICITABINE 200 MG CAP PO SCH (11:54)
[2020-08-24] MEDS: DIVALPROEX DR 500 MG TAB PO SCH (11:54)
[2020-08-24] MEDS: RITONAVIR 100 MG TAB PO SCH (11:55)
[2020-08-24] MEDS: ABACAVIR 300 MG TAB PO SCH (11:55)
[2020-08-24] MEDS: ESCITALOPRAM 10 MG TAB PO SCH (11:55)
[2020-08-24] MEDS: DARUNAVIR 800 MG TAB PO SCH (11:56)
[2020-08-24] MEDS: HYDROcodone/ACETAMINOPHEN 5-325 MG TAB PO PRN (12:51)
== END 2020-08-24 13:00 | DRG 350 ==
LOC: ED 23:45 → OBSVTOIN 08-14 07:27 → 3A 08-14 07:27
PROVIDERS: ADMIT Internal Medicine Geriatric Medicine; ATTEND Internal Medicine
PROC: 3E0234Z Introduction of Serum, Toxoid and Vaccine into Muscle, Percutaneous Approach (ICD-10-PCS; 2020-08-15)
PROC: 0YU54JZ Supplement Right Inguinal Region with Synthetic Substitute, Percutaneous Endoscopic Approach (ICD-10-PCS; principal; 2020-08-20)
PROC: 8E0W4CZ Robotic Assisted Procedure of Trunk Region, Percutaneous Endoscopic Approach (ICD-10-PCS; 2020-08-20)
DX: K40.30 Unilateral inguinal hernia, with obstruction, without gangrene, not specified as recurrent (principal); G93.41 Metabolic encephalopathy; B20 Human immunodeficiency virus [HIV] disease; I10 Essential (primary) hypertension; F32.9 Major depressive disorder, single episode, unspecified; Z66 Do not resuscitate; F03.90 Unspecified dementia, unspecified severity, without behavioral disturbance, psychotic disturbance, mood disturbance, and anxiety; E78.5 Hyperlipidemia, unspecified; D64.9 Anemia, unspecified; Z20.828 Contact with and (suspected) exposure to other viral communicable diseases; Z79.82 Long term (current) use of aspirin; Z86.718 Personal history of other venous thrombosis and embolism; Z79.01 Long term (current) use of anticoagulants; I25.2 Old myocardial infarction; I25.10 Atherosclerotic heart disease of native coronary artery without angina pectoris; I73.9 Peripheral vascular disease, unspecified; D17.79 Benign lipomatous neoplasm of other sites; I82.423 Acute embolism and thrombosis of iliac vein, bilateral; Z23 Encounter for immunization
CPT/HCPCS: 36415; 70450; 74177; 80048; 80053; 81001; 82306; 82607; 82747; 82962; 84134; 84425; 84443; 85007; 85025; 90471; 94640; 96361; 96374; 96375; G0378; C1781; J0360; J1100; J1644; J1885; J2270; J2370; J2405; J2543; J2704; J3010; J7120; Q9967; U0003

== ENCOUNTER 2020-08-31 11:12 | Emergency (ER) | payer MEDICAID ==
--- NOTE | 2020-08-31 12:51 | Emergency Department Report ---
Blank Doc - Documentation Documentation: 64-year-old male that presents with RLQ abdominal pain with nausea. This initial assessment/diagnostic orders/clinical plan/treatment(s) is/are subject to change based on patient's health status, clinical progression and re- assessment by fellow clinical providers in the ED. Further treatment and workup at subsequent clinical providers discretion. Patient/guardians urged not to elope from the ED as their condition may be serious if not clinically assessed and managed. Initial orders include: 1- Patient sent to [facility] for further evaluation and treatment 2- labs 3- UA
[2020-08-31 13:07] LABS: Basophils % (Auto) 0.1 % (0.0-1.8); Hematocrit 39.7 % (35.5-45.6); Hemoglobin 12.9 gm/dl (11.8-15.2); Lymphocytes # (Auto) 1.8 K/mm3 (1.2-5.4); Lymphocytes % (Auto) 13.2 % (13.4-35.0); Mean Corpuscular HGB Conc 32 % (32-34); Mean Corpuscular Volume 91 fl (84-94); Monocytes # (Auto) 1.2 K/mm3 (0.0-0.8); Monocytes % (Auto) 8.9 % (0.0-7.3); Platelet Count 310 K/mm3 (140-440); Red Blood Count 4.38 M/mm3 (3.65-5.03); Red Cell Distribution Width 15.1 % (13.2-15.2)
[2020-08-31 13:28] LABS: Alanine Aminotransferase 31 units/L (7-56); Albumin 3.7 g/dL (3.9-5); BUN/Creatinine Ratio 23; Blood Urea Nitrogen 27 mg/dL (9-20); Calcium 10.8 mg/dL (8.4-10.2); Hemolysis Index 9
[2020-08-31 14:36] LABS: Bilirubin,Urine NEG (Negative); Blood,Urine NEG (Negative); Color,Urine Yellow (Yellow); Mucus,Urine FEW /HPF; Protein,Urine <15 mg/dL mg/dL (Negative); Urobilinogen,Urine < 2.0 mg/dL (<2.0)
[2020-08-31 20:43] VITALS: BP 118/90
== END 2020-09-01 06:20 | disposition left against medical advice (07) ==
LOC: ED 11:12
DX: R10.31 Right lower quadrant pain (principal); Z53.21 Procedure and treatment not carried out due to patient leaving prior to being seen by health care provider
CPT/HCPCS: 36415; 80053; 81001; 83690; 85025